=== PATIENT | female | born 1975 | race Caucasian/White ===

== ENCOUNTER 2016-04-28 01:06 | Emergency (ER) | payer SELFPAY ==
[~2016-04-28] VITALS: Ht 157.5 cm; Wt 62.1 kg
[~2016-04-28 01:06] MED LIST: AMOX875T PO; CIPR7.5D EACH EAR; ERYT1OIN6 OD; HYDR-971 PO; IBUP200T77 PO; INSU100V5 IJ; NAPR250T2 PO; OFLO5DRO OD; PRED20TA PO; PROAIR HFA8.5 GM INH; TRAM50TA PO
[2016-04-28] MEDS ORDERED: IPRATRPIUM/ALBUTEROL 0.5/2.5MG 3 ML NEBU. NEB ONE (02:00)
[2016-04-28] MEDS ORDERED: TETRACAINE 0.5% OPHTH SOLUTION 4ML BOTTLE. OD ONE (02:00)
[2016-04-28] MEDS ORDERED: FLUORESCEIN OPHTH TEST STRIP. OS ONE (02:00)
[2016-04-28 02:05] LABS: BASO # 0.2 x10^3/uL (0.0-0.2); BASO % 1 % (0-3); EOS % 3 % (0-3); HEMATOCRIT 39.8 % (36.0-47.0); HEMOGLOBIN 13.5 g/dL (12.0-15.5); LYMPH % 27 % (24-48); MEAN CORPUSCULAR HEMOGLOBIN 32 pg (25-35); MEAN CORPUSCULAR HGB CONC 34 g/dL (31-37); MEAN CORPUSCULAR VOLUME 94 fL (79-100); MONO % 7 % (0-9); NEUT % 61 % (31-73); PLATELET COUNT 409 x10^3/uL (140-400); RED BLOOD COUNT 4.23 x10^6/uL (3.50-5.40); RED CELL DISTRIBUTION WIDTH 14.1 % (11.5-14.5)
--- NOTE | 2016-04-28 02:11 | ED.ADGEN ---
Past Medical History Past Medical History: Diabetes-Type II Additional Past Medical Histor: neuropathy; osteomyolitis Past Surgical History: Other Additional Past Surgical Histo: left ankle Alcohol Use: None Drug Use: None Adult General Chief Complaint Chief Complaint: EYE PROBLEMS HPI HPI Patient is a 41 year old woman, history of asthma, hypertension, tobacco abuse , who presents to the emergency department with complaint of right eye pain 1 month, shortness of breath with cough over the past several days area patient states that she was seen about a month ago for "a scratch in my eye". States that she has mild blurriness in the right eye, and continued pain. Patient is rubbing at the eye with cough in the ED. States that she was sent home with "a silver tube of medication", which she states made the pain worse. She was also sent home with prednisone for her lungs. She states she has not been using the prednisone as it makes her sugars "go high". She states that she does not have testing strips at home, does not have a primary care provider, but she receives her insulin through [employer]. She she has been using insulin but has not been checking her sugars recently. She is her sugars are running in the 200s when she has been able to check. Patient states that she's had runny nose and cough, has been able to smoke over the past several days due to the degree of her coughing, noted to be hypoxic at 89-94% on room air upon arrival to the ED, tachycardic in the low 100s to 1 teens. Patient does not use oxygen at baseline. Denies any chest pain, denies any weakness numbness or tingling, experiences some shortness of breath or cough, no nausea or vomiting, no sick contacts or exposures, recent travel or surgery, history of DVT or PE. Review of Systems Review of Systems Constitutional: Denies fever or chills. [] Eyes: Slightly blurred vision in the right eye, with redness and pain. [] HENT: No sore throat, positive for nasal congestion.. [] Respiratory: Shortness of breath, limiting tobacco use over the past several days, complaining of cough, occasionally productive clear sputum.] Cardiovascular: Denies chest pain or edema. [] GI: Denies abdominal pain, nausea, vomiting, bloody stools or diarrhea. [] : Denies dysuria. [] Musculoskeletal: Denies back pain or joint pain. [] Integument: Denies rash. [] Neurologic: Denies headache, focal weakness or sensory changes. [] Endocrine: Denies polyuria or polydipsia. [] Lymphatic: Denies swollen glands. [] Psychiatric: Denies depression or anxiety. [] Current Medications Current Medications Current Medications Medications (Trade) Dose Ordered Sig/Kavin Start Time Stop Time Status Last Admin Dose Admin Albuterol/ Ipratropium (Duoneb) 3 ml 1X ONCE 04/28/16 02:00 04/28/16 02:01 DC 04/28/16 02:00 3 ML Azithromycin (Zithromax) 500 mg 1X ONCE 04/28/16 04:30 04/28/16 04:42 DC 04/28/16 04:31 500 MG Erythromycin (Romycin) 0.25 inch 1X ONCE 04/28/16 02:45 04/28/16 02:46 DC 04/28/16 03:02 0.25 INCH Fluorescein Sodium (Ful-Lillian) 1 strip 1X ONCE 04/28/16 02:00 04/28/16 02:01 DC 04/28/16 02:24 1 STRIP Methylprednisolone Sodium Succinate (Solu-Medrol 125mg Vial) 125 mg 1X ONCE 04/28/16 02:45 04/28/16 02:46 DC 04/28/16 03:01 125 MG Naproxen (Naprosyn) 250 mg 1X ONCE 04/28/16 02:45 04/28/16 02:46 DC 04/28/16 03:02 250 MG Tetracaine HCl (Tetracaine) 1 drop 1X ONCE 04/28/16 02:00 04/28/16 02:01 DC 04/28/16 02:28 1 DROP Allergies Allergies Allergies Coded Allergies Type Severity Reaction Last Updated Verified No Known Drug Allergies 03/07/13 No Physical Exam Physical Exam Constitutional: Well developed, well nourished, no acute distress, non-toxic appearance. [] HENT: Normocephalic, atraumatic, bilateral external ears normal, oropharynx moist, no oral exudates, nose normal. [] Eyes: PERRLA, EOMI, patient with mild erythema to both eyes, conjunctival injection worse on the right, or motions are intact, patient complains of pain at the lateral aspect of her eye, noted to have some surrounding redness no swelling, patient is rubbing the eye constantly with a cloth.] Neck: Normal range of motion, no tenderness, supple, no stridor. [] Cardiovascular:Heart rate regular rhythm, no murmur, S1, S2, rubs or gallops. [] Lungs & Thorax: Patient with coarse breath sounds bilaterally, significant scattered wheezing, with diminished breath sounds throughout. No chest wall tenderness or crepitus. Abdomen: Bowel sounds normal, soft, no rebound, rigidity, no guarding, no tenderness, no masses, no pulsatile masses. [] Skin: Warm, dry, no erythema, no rash. [] Back: No tenderness, no CVA tenderness. [] Extremities: No tenderness, no cyanosis, no clubbing, ROM intact, no edema. Negative Homans sign. [] Neurologic: Alert and oriented X 3, normal motor function, normal sensory function, no focal deficits noted. [] Psychologic: Affect normal, judgement normal, mood normal. [] Eyes examination: Fluorescein examination reveals large central corneal abrasion which does cross the pupil, at the 6 o'clock position, no foreign bodies or ulcerations identified. Patient with full painless range of motion with tetracaine applied. Current Patient Data Vital Signs Vital Signs Date Time Temp Pulse Resp B/P Pulse Ox O2 Delivery O2 Flow Rate FiO2 04/28/16 04:42 103 119/56 92 Room Air 04/28/16 02:01 2.0 04/28/16 01:27 98.6 20 98.6 Lab Values Laboratory Tests Test 04/28/16 01:57 04/28/16 03:05 White Blood Count 15.0x10^3/uL (4.0-11.0) H Red Blood Count 4.23x10^6/uL (3.50-5.40) Hemoglobin 13.5g/dL (12.0-15.5) Hematocrit 39.8% (36.0-47.0) Mean Corpuscular Volume 94fL (79-100) Mean Corpuscular Hemoglobin 32pg (25-35) Mean Corpuscular Hemoglobin Concent 34g/dL (31-37) Red Cell Distribution Width 14.1% (11.5-14.5) Platelet Count 409x10^3/uL (140-400) H Neutrophils (%) (Auto) 61% (31-73) Lymphocytes (%) (Auto) 27% (24-48) Monocytes (%) (Auto) 7% (0-9) Eosinophils (%) (Auto) 3% (0-3) Basophils (%) (Auto) 1% (0-3) Neutrophils # (Auto) 9.2x10^3uL (1.8-7.7) H Lymphocytes # (Auto) 4.0x10^3/uL (1.0-4.8) Monocytes # (Auto) 1.1x10^3/uL (0.0-1.1) Eosinophils # (Auto) 0.5x10^3/uL (0.0-0.7) Basophils # (Auto) 0.2x10^3/uL (0.0-0.2) Sodium Level 136mmol/L (136-145) Potassium Level 4.3mmol/L (3.5-5.1) Chloride Level 97mmol/L (98-107) L Carbon Dioxide Level 29mmol/L (21-32) Anion Gap 10 (6-14) Blood Urea Nitrogen 24mg/dL (7-20) H Creatinine 1.1mg/dL (0.6-1.0) H Estimated GFR (Cockcroft-Gault) 54.7 BUN/Creatinine Ratio 22 (6-20) H Glucose Level 438mg/dL (70-99) H Calcium Level 9.0mg/dL (8.5-10.1) Total Bilirubin 0.2mg/dL (0.2-1.0) Aspartate Amino Transferase (AST) 24U/L (15-37) Alanine Aminotransferase (ALT) 52U/L (14-59) Alkaline Phosphatase 128U/L (46-116) H Total Protein 7.3g/dL (6.4-8.2) Albumin 3.2g/dL (3.4-5.0) L Albumin/Globulin Ratio 0.8 (1.0-1.7) L Influenza Type A Antigen Negative (NEGATIVE) Influenza Type B Antigen Negative (NEGATIVE) Laboratory Tests 04/28/16 01:57 Laboratory Tests 04/28/16 01:57 EKG EKG EC: Sinus tachycardia, heart rate 105 bpm, upright axis, QTC of 427, OR 118, QRS of 82, no ST elevations or depressions, no evidence of acute ST abnormalities, aside from sinus tachycardia. As interpreted by me. Radiology/Procedures Radiology/Procedures Chest x-ray: Two-view: Normal cardiopulmonary silhouette, no focal traits, no effusions, no soft tissue or bony abnormalities identified. No pneumothorax. As interpreted by me. [] Course & Med Decision Making Course & Med Decision Making Pertinent Labs and Imaging studies reviewed. (See chart for details) Patient with significant wheezing, diminished breath sounds throughout the lung david. Respiratory treatment ordered, along with steroids. Patient noted be tachycardic, hypoxic, was placed on O2 in the ED, oxygen saturations improved from 89% prior to breathing treatment, to mid 90s after treatment, patient remained mildly tachycardic, removed her oxygen, saturation dropped to about 91- 92% at rest, remains mildly tachycardic. Eye examination reveals a large central corneal abrasion, no foreign bodies identified, no ulceration identified , patient appears to have reinjured the eye after the initial event. She is presently rubbing at her eye with a cloth, initially complains of pain with eye motion, however after tetracaine applied, patient has full extraocular motions that are intact without pain. Examination is not consistent with preseptal or septal cellulitis. Based on patient's respiratory difficulties, nursing that she has difficulty filling medications, she previous is not compliant with her prednisone prescription, I did offer admission to the patient, and discussed that admission to the hospital on her to be further evaluated by both the tariff expert potentially, and also to receive better treatment of her pulmonary symptoms. Patient stated that she understood the reasons that I recommended admission to the hospital, the tachycardia, the hypoxia, and the risk to be associated with leaving the hospital that medical advice. She stated she understood this included morbidity and even mortality. She states however that she has 5 children she needs to care for, and therefore must leave the ED. Patient received first dose of azithromycin in the ED, was given prescription for azithromycin 250 mg, this is on the $4 list, to be taken once daily for days , along with a refill of her prednisone prescription which she did not previously fill, prescription for albuterol inhaler, and also another prescription for erythromycin for her eye. This is not optimal treatment which I did emphasize to the patient, although she states that she is feeling better at this time, I am concerned that with her underlying hypoxia upon arrival that she could decompensate or experience, locations with her illness further. Patient again voiced understanding. I discussed with her that I cannot send her home with tetracaine drops, discussed with her again the importance of following up with ophthalmology for additional evaluation, the fact that she should feel free to return to the ED anytime for additional evaluation and admission to the hospital. Patient voiced understanding, did complete AMA paperwork with nurse Denise, exited from the emergency department without issue. Dragon Disclaimer Dragon Disclaimer This electronic medical record was generated, in whole or in part, using a voice recognition dictation system. Departure Impression: Primary Impression: Bronchitis Additional Impressions: Corneal abrasion Hypoxia Disposition: AGAINST MEDICAL ADVICE Condition: STABLE Scripts Erythromycin Base (Erythromycin)3.5 Gm Oint...g.1 Tong KATHY [id number] #3.5 GM Prov:GENEVA ALMODOVAR DO 04/28/16 Albuterol Sulfate (Proair Hfa Inhaler)8.5 Gm Hfa.aer.ad1 Puff INH PRN Q6HRS PRN SHORTNESS OF BREATH #1 INHALER Ref 0 Prov:GENEVA ALMODOVAR DO 04/28/16 Azithromycin (Azithromycin Tablet)250 Mg [id number] Mg PO DAILY ANTI-BIOTIC #4 TAB Ref 0 Prov:GENEVA ALMODOVAR DO 04/28/16 Prednisone 20 Mg Tablet2 Tab PO DAILY #8 TAB Prov:GENEVA ALMODOVAR DO 04/28/16 Problem Qualifiers Additional Impressions: Corneal abrasion Encounter type: initial encounter Laterality: right Qualified Code: S05.01XA - Injury of conjunctiva and corneal abrasion without foreign body, right eye, initial encounter GENEVA ALMODOVAR DO Apr 28, 2016 02:11
[2016-04-28 02:17] LABS: CREATININE 1.1 mg/dL (0.6-1.0); GFR 54.7; POTASSIUM 4.3 mmol/L (3.5-5.1)
[2016-04-28 02:23] LABS: ALBUMIN 3.2 g/dL (3.4-5.0); ALBUMIN/GLOBULIN RATIO 0.8 (1.0-1.7); TOTAL BILIRUBIN 0.2 mg/dL (0.2-1.0); TOTAL PROTEIN 7.3 g/dL (6.4-8.2)
[2016-04-28] MEDS ORDERED: NAPROXEN 250 MG TABLET PO ONE (02:45)
[2016-04-28] MEDS ORDERED: methylPREDNISolone SOD SUCC PF 125 MG/2 ML VIAL. IV ONE (02:45)
[2016-04-28] MEDS ORDERED: ERYTHROMYCIN 0.5% OPHTH OINTMENT 1GM TUBE. OD ONE (02:45)
[2016-04-28 03:33] LABS: OBC FLU VALID
[2016-04-28] MEDS ORDERED: PRED20TA PO (04:19)
[2016-04-28] MEDS ORDERED: ERYT1OIN6 RIGHTEYE (04:19)
[2016-04-28] MEDS ORDERED: AZIT250T6 PO (04:19)
[2016-04-28] MEDS ORDERED: PROAIR HFA8.5 GM INH (04:19)
[2016-04-28] MEDS ORDERED: AZITHROMYCIN 250 MG TABLET PO ONE (04:30)
[2016-04-28 04:42] VITALS: BP 119/56
--- NOTE | 2016-04-28 06:39 | EKG ---
[facility] [address] [place] [address] Test Date: 2016-04-28 Test Time: 02:08:51 Pat Name: RENEE MARQUEZ Department: Room: Gender: F Test Engine Operator: : 1975 Requested By: GENEVA ALMODOVAR Order Number: [id number] Reading MD: Shade Burger Measurements Intervals [place] Rate: 105 P: 40 VT: 118 QRS: 68 QRSD: 82 T: 49 QT: 320 QTc: 427 Interpretive Statements SINUS TACHYCARDIA OTHERWISE NORMAL ECG Electronically Signed On 04-28-2016 14:57:33 MULTI SPINDLE OPERATOR by Shade Burger
--- NOTE | 2016-04-28 07:26 | RAD ---
Indication: Cough and hypoxia. Time of exam 0 to 35 hours. Correlation is made with prior study 03/07/2013. The lungs are hyperinflated. Interstitial changes are noted which may be chronic. No parenchymal consolidation is seen. There is no effusion or pneumothorax. Impression: Stable interstitial changes when compared with exam from 03/07/2013.
== END 2016-04-28 04:52 | disposition left against medical advice (07) ==
LOC: ER 01:06
DX: S05.01XA Injury of conjunctiva and corneal abrasion without foreign body, right eye, initial encounter (principal); J40 Bronchitis, not specified as acute or chronic; R09.02 Hypoxemia; E11.40 Type 2 diabetes mellitus with diabetic neuropathy, unspecified; I10 Essential (primary) hypertension; F17.200 Nicotine dependence, unspecified, uncomplicated; X58.XXXA Exposure to other specified factors, initial encounter; Z79.4 Long term (current) use of insulin; Y93.89 Activity, other specified; Y92.89 Other specified places as the place of occurrence of the external cause; Y99.8 Other external cause status
CPT/HCPCS: 36415; 71020; 80053; 85027; 87804; 93005; 94640; 96374; 99285; J2930; J7620; Q0144

== ENCOUNTER 2016-06-04 16:16 | Emergency (ER) | payer SELFPAY ==
[~2016-06-04] VITALS: Ht 170.2 cm; Wt 59.9 kg
[~2016-06-04 16:16] MED LIST changes: +AZIT250T6 PO; +ERYT1OIN6 RIGHTEYE
[2016-06-04 16:25] VITALS: BP 168/78
[2016-06-04] MEDS ORDERED: IPRATRPIUM/ALBUTEROL 0.5/2.5MG 3 ML NEBU. NEB ONE (16:45)
[2016-06-04] MEDS ORDERED: PROAIR HFA8.5 GM INH (18:15)
[2016-06-04] MEDS ORDERED: BENZ200C39 PO (18:15)
[2016-06-04] MEDS ORDERED: NPH,100V4 SQ (18:15)
--- NOTE | 2016-06-04 18:15 | PHYS DOC ---
Past Medical History Past Medical History: Diabetes-Type II Additional Past Medical Histor: neuropathy; osteomyolitis Past Surgical History: Other Additional Past Surgical Histo: left ankle Smoking: Less than 1pk/day Alcohol Use: Occasionally Drug Use: None Adult General Chief Complaint Chief Complaint: COUGH [facility] HPI Patient is a 41 year old female who presents with productive cough and subjective fever for 5 days. She also reports shortness of breath and nasal congestion. She denies sore throat, ear pain, nausea, vomiting, or diarrhea. She did not get a flu shot this season. The patient is also requesting a refill of her albuterol inhaler and her NPH insulin. She has been using her regular insulin at higher doses to control her blood sugars to account for the lack of NPH insulin over the last few days. She does not have a PCP. Review of Systems Review of Systems Constitutional: Reports subjective fever. Eyes: Denies change in visual acuity, redness, or eye pain. [] HENT: Denies ear pain or sore throat. Reports nasal congestion. Respiratory: Reports productive cough and shortness of breath. Cardiovascular: Denies chest pain, palpitations or edema. [] GI: Denies abdominal pain, nausea, vomiting, bloody stools or diarrhea. [] : Denies dysuria, hematuria or urinary frequency. [] Musculoskeletal: Denies back pain or joint pain. [] Integument: Denies rash or skin lesions. [] Neurologic: Denies headache, focal weakness or sensory changes. [] Endocrine: Denies polyuria or polydipsia. [] Psych: Denies anxiety or depression. [] All systems reviewed and negative unless otherwise stated in the HPI. Current Medications Current Medications Current Medications Medications (Trade) Dose Ordered Sig/Kavin Start Time Stop Time Status Last Admin Dose Admin Albuterol/ Ipratropium (Duoneb) 3 ml 1X ONCE 06/04/16 16:45 06/04/16 16:46 DC 06/04/16 16:44 3 ML Allergies Allergies Allergies Coded Allergies Type Severity Reaction Last Updated Verified No Known Drug Allergies 03/07/13 No Physical Exam Physical Exam Constitutional: Well developed, well nourished, no acute distress, non-toxic appearance. [] HENT: Normocephalic, atraumatic, bilateral external ears normal, oropharynx moist, no oral exudates, nose normal. Bilateral TMs without erythema or bulging. There is no posterior pharyngeal erythema or tonsillar edema. Bilateral nasal turbinates are swollen and erythematous. Eyes: PERRLA, EOMI, conjunctiva normal, no discharge. [] Neck: Normal range of motion, no tenderness, supple, no stridor. [] Cardiovascular: Heart rate regular rhythm, no murmur [] Lungs & Thorax: Bilateral breath sounds clear to auscultation without wheezes, rales, or rhonchi. Skin: Warm, dry, no erythema, no rash. [] Neurologic: Alert and oriented X 3, normal motor function, normal sensory function, no focal deficits noted. [] Psychologic: Affect normal, judgement normal, mood normal. [] Current Patient Data Vital Signs Vital Signs Date Time Temp Pulse Resp B/P Pulse Ox O2 Delivery O2 Flow Rate FiO2 06/04/16 16:46 Room Air 06/04/16 16:25 97.9 114 18 95 97.9 EKG EKG [] Radiology/Procedures Radiology/Procedures PA and lateral chest x-ray reviewed and interpreted by myself with Dr. Lynn. There are no focal infiltrates. Course & Med Decision Making Course & Med Decision Making Pertinent Labs and Imaging studies reviewed. (See chart for details) Patient presents with cough and shortness of breath. She refuses a flu swab, stating that she was seen 2 weeks ago with similar symptoms and tested negative. I informed her that she could be positive today even if she was negative previously. She still refuses. She is given a DuoNeb breathing treatment in the emergency department with reported improved breathing. Chest x- ray does not show any sign of pneumonia. She is discharged home with prescription for albuterol inhaler, Tessalon Perles, and NPH insulin. She refuses to take a prescription for steroids, stating that she is already low on her insulin and does not want her blood sugars to increase due to the steroids. Return precautions were discussed. She verbalizes understanding and agrees with plan. Renu Disclaimer Renu Disclaimer This electronic medical record was generated, in whole or in part, using a voice recognition dictation system. Departure Departure Impression: Primary Impression: Bronchitis Disposition: HOME, SELF-CARE Condition: IMPROVED Referrals: NO PCP (PCP) Patient Instructions: Acute Bronchitis, [id number] Additional Instructions: Your chest x-ray did not show any signs of pneumonia. You appear to have a viral bronchitis. Antibiotics do not help to treat viral infections. Please use the prescribed inhaler as needed for cough or shortness of breath. Do not use more often than directed. Please follow-up with a primary care doctor within the next week for reevaluation. Return to emergency department if you have any new or concerning symptoms. Scripts Nph, Human Insulin Isophane (Novolin N)100 Unit/1 Ml Vial1 Unit SQ BID #1 VIAL Use as directed. Prov:GENEVA CHUNG 06/04/16 Benzonatate 200 Mg Capsule1 Cap PO TID #30 CAP Prov:GENEVA CHUNG 06/04/16 Albuterol Sulfate (Proair Hfa Inhaler)8.5 Gm Hfa.aer.ad1 Puff INH Q4HRS PRN SHORTNESS OF BREATH #1 INHALER Prov:GENEVA CHUNG 06/04/16 GENEVA CHUNG Jun 04, 2016 18:15
--- NOTE | 2016-06-05 10:31 | RAD ---
Examination: 2 views of the chest. History: History of cough for 5 days Comparison: 04/28/2016 Finding The cardiomediastinal silhouette grossly appears unremarkable. Prominent appearing interstitial lung markings identified in the perihilar region grossly appears similar to prior exam. There is no acute infiltrate or visualized pneumothorax identified. Impression : No acute cardiopulmonary findings.
== END 2016-06-04 18:19 | disposition home or self-care (01) ==
LOC: ER 16:16
DX: J40 Bronchitis, not specified as acute or chronic (principal); E11.40 Type 2 diabetes mellitus with diabetic neuropathy, unspecified; E11.69 Type 2 diabetes mellitus with other specified complication; M86.9 Osteomyelitis, unspecified; F17.200 Nicotine dependence, unspecified, uncomplicated
CPT/HCPCS: 71020; 94250; 94640; 99284; J7620

== ENCOUNTER 2016-07-13 20:04 | Emergency (ER) | payer SELFPAY ==
[~2016-07-13] VITALS: Ht 157.5 cm; Wt 59.9 kg
[~2016-07-13 20:04] MED LIST changes: +BENZ200C39 PO; +NPH,100V4 SQ
[2016-07-13 20:20] VITALS: BP 168/78
[2016-07-13] MEDS ORDERED: HYDR-971 PO (20:48)
[2016-07-13] MEDS ORDERED: AMOX875T PO (20:48)
--- NOTE | 2016-07-13 20:48 | PHYS DOC ---
Past Medical History Past Medical History: Diabetes-Type II Additional Past Medical Histor: neuropathy; osteomyolitis Past Surgical History: Other Additional Past Surgical Histo: left ankle Alcohol Use: Occasionally Drug Use: None Adult General Chief Complaint Chief Complaint: Toothache [facility] HPI Patient is a 41 year old female who is an insulin-dependent diabetic presents emergency Department today with right upper dental pain for the past 2-3 days. Patient states that she broke her tooth 2-3 days ago. She has not seen a dentist since that time. She denies being on antibiotics. Patient also has a second complaint of an ongoing right ear infection which she cannot afford the antibiotics or been prescribed for the past. Patient does not have a primary care doctor. She receives her insulin local [facility] organization. She states that she has had problems regulating her blood sugar and it is gone as high as 300 and other time she has bottomed out with it. She states that is not her concern at this time. She is primarily concerned about her dental pain in the ongoing right ear problem. Review of Systems Review of Systems Constitutional: Denies fever or chills [] Eyes: Denies change in visual acuity, redness, or eye pain [] HENT: Denies nasal congestion or sore throat [] Respiratory: Denies cough or shortness of breath [] Cardiovascular: No additional information not addressed in HPI [] GI: Denies abdominal pain, nausea, vomiting, bloody stools or diarrhea [] : Denies dysuria or hematuria [] Musculoskeletal: Denies back pain or joint pain [] Integument: Denies rash or skin lesions [] Neurologic: Denies headache, focal weakness or sensory changes [] Endocrine: Denies polyuria or polydipsia [] Allergies Allergies Allergies Coded Allergies Type Severity Reaction Last Updated Verified No Known Drug Allergies 03/07/13 No Physical Exam Physical Exam Constitutional: Well developed, well nourished, no acute distress, non-toxic appearance. Patient is afebrile HENT: Normocephalic, atraumatic, , oropharynx moist, no oral exudates, nose normal. Patient's external ear is erythematous and swollen. It is not hot to the touch but has a appearance of chronic inflammation. External ear canal is inflamed with drainage. The portions of the tympanic membrane that I am able to observe are normal in appearance. There is no evidence of mastoiditis. There is no trismus. Patient's first and second right maxillary molars are decayed into the dentin. There is no active purulent drainage. There is surrounding gingival inflammation without a fluctuant pocket suggestive of a gingival abscess. Eyes: PERRLA, EOMI, conjunctiva normal, no discharge. [] Neck: Normal range of motion, no tenderness, supple, no stridor. [] Cardiovascular:Heart rate regular rhythm, no murmur [] Lungs & Thorax: Bilateral breath sounds clear to auscultation [] Abdomen: Bowel sounds normal, soft, no tenderness, no masses, no pulsatile masses. [] Skin: Warm, dry, no erythema, no rash. [] Back: No tenderness, no CVA tenderness. [] Extremities: No tenderness, no cyanosis, no clubbing, ROM intact, no edema. [] Neurologic: Alert and oriented X 3, normal motor function, normal sensory function, no focal deficits noted. [] Psychologic: Affect normal, judgement normal, mood normal. [] Current Patient Data Vital Signs Vital Signs Date Time Temp Pulse Resp B/P Pulse Ox O2 Delivery O2 Flow Rate FiO2 07/13/16 20:20 98.9 113 20 96 Room Air 98.9 EKG EKG [] Radiology/Procedures Radiology/Procedures [] Course & Med Decision Making Course & Med Decision Making Pertinent Labs and Imaging studies reviewed. (See chart for details) [] Dragon Disclaimer Dragon Disclaimer This electronic medical record was generated, in whole or in part, using a voice recognition dictation system. Departure Departure Impression: Primary Impression: Otitis externa Additional Impression: Dental caries Disposition: 01 HOME, SELF-CARE Condition: GOOD Referrals: NO PCP (PCP) Patient Instructions: Dental Caries-Brief, Otitis Externa, [id number] Additional Instructions: 1. Take the medication as prescribed. 2. Use the dental resource the for assistance in finding a dental clinic or other clinic to address your dental concerns. 3. Review the discharge instructions provided for self-care and reasons to return the emergency department. Scripts Hydrocodone/Apap 5-325 ([place] 5-325 Tablet)1 Each Tablet1 Tab PO PRN Q6HRS PRN PAIN #15 TAB Ref 0 Prov:DANIEL BRADLEY 07/13/16 Amoxicillin 875 Mg Tablet1 Tab PO BID #20 TAB Prov:DANIEL BRADLEY 07/13/16 Problem Qualifiers DANIEL BRADLEY Jul 13, 2016 20:48
== END 2016-07-13 21:05 | disposition home or self-care (01) ==
LOC: ER 20:04
DX: K02.9 Dental caries, unspecified (principal); H60.91 Unspecified otitis externa, right ear; E11.40 Type 2 diabetes mellitus with diabetic neuropathy, unspecified; E11.69 Type 2 diabetes mellitus with other specified complication; M86.9 Osteomyelitis, unspecified
CPT/HCPCS: 99283

== ENCOUNTER 2016-08-09 21:10 | Emergency (ER) | payer SELFPAY ==
[~2016-08-09] VITALS: Ht 157.5 cm; Wt 59.9 kg
[2016-08-09 21:41] VITALS: BP 148/74
--- NOTE | 2016-08-09 21:57 | PHYS DOC ---
Past Medical History Past Medical History: Diabetes-Type I Additional Past Medical Histor: neuropathy; osteomyolitis Past Surgical History: Other Additional Past Surgical Histo: left ankle Alcohol Use: Occasionally Drug Use: None Adult General Chief Complaint Chief Complaint: SORE THROAT HPI HPI Patient is a 41 year old female presents emergency department stating that she' s been having a sore throat for the last 3-4 days. Patient states when she woke up this morning to get out of bed that both of her legs in her thighs hurt. She states that she was week and had increased pain. Patient denies any nausea vomiting. She does state she's had some lightheadedness dizziness she does state she's had a productive cough patient states that she has felt warm she has not taken her temperature. Patient states her glucoses have been running high. Review of Systems Review of Systems Constitutional: Denies fever or chills [] Eyes: Denies change in visual acuity, redness, or eye pain [] HENT: Denies nasal congestion or sore throat [] Respiratory: Denies cough or shortness of breath [] Cardiovascular: No additional information not addressed in HPI [] GI: Denies abdominal pain, nausea, vomiting, bloody stools or diarrhea [] : Denies dysuria or hematuria [] Musculoskeletal: Denies back pain or joint pain [] Integument: Denies rash or skin lesions [] Neurologic: Denies headache, focal weakness or sensory changes [] Endocrine: Denies polyuria or polydipsia [] Current Medications Current Medications Current Medications Medications (Trade) Dose Ordered Sig/[facility] Start Time Stop Time Status Last Admin Dose Admin Insulin Human Regular (Novolin R Vial) 10 unit 1X ONCE 08/09/16 23:00 08/09/16 23:01 Sodium Chloride 1,000 ml @ 1,000 mls/hr 1X ONCE 08/09/16 23:00 08/09/16 23:59 Allergies Allergies Allergies Coded Allergies Type Severity Reaction Last Updated Verified No Known Drug Allergies 03/07/13 No Physical Exam Physical Exam Constitutional: Well developed, well nourished, no acute distress, non-toxic appearance. [] HENT: Normocephalic, atraumatic, bilateral external ears normal, oropharynx moist, no oral exudates, nose normal. Bilateral tympanic membranes appear to be normal. Throat with erythematous and redness noted no exudate noted. Patient was noted to have white spots on her tongue and underneath the time. Patient has bilateral anterior cervical adenopathy. Eyes: PERRLA, EOMI, conjunctiva normal, no discharge. [] Neck: Normal range of motion, no tenderness, supple, no stridor. [] Cardiovascular:Heart rate regular rhythm, no murmur [] Lungs & Thorax: Bilateral breath sounds clear to auscultation [] Skin: Warm, dry, no erythema, no rash. [] Back: No tenderness Extremities: No tenderness, no cyanosis, no clubbing, ROM intact, no edema. [] Neurologic: Alert and oriented X 3, normal motor function, normal sensory function, no focal deficits noted. [] Psychologic: Affect normal, judgement normal, mood normal. [] Current Patient Data Vital Signs Vital Signs Date Time Temp Pulse Resp B/P (MAP) Pulse Ox O2 Delivery O2 Flow Rate FiO2 08/09/16 21:41 98.6 102 18 96 Room Air 98.6 Lab Values Laboratory Tests Test 08/09/16 21:15 08/09/16 22:00 White Blood Count 11.4 x10^3/uL (4.0-11.0) H Red Blood Count 4.34 x10^6/uL (3.50-5.40) Hemoglobin 13.8 g/dL (12.0-15.5) Hematocrit 41.0 % (36.0-47.0) Mean Corpuscular Volume 94 fL (79-100) Mean Corpuscular Hemoglobin 32 pg (25-35) Mean Corpuscular Hemoglobin Concent 34 g/dL (31-37) Red Cell Distribution Width 14.0 % (11.5-14.5) Platelet Count 418 x10^3/uL (140-400) H Neutrophils (%) (Auto) 56 % (31-73) Lymphocytes (%) (Auto) 36 % (24-48) Monocytes (%) (Auto) 4 % (0-9) Eosinophils (%) (Auto) 2 % (0-3) Basophils (%) (Auto) 1 % (0-3) Neutrophils # (Auto) 6.4 x10^3uL (1.8-7.7) Lymphocytes # (Auto) 4.1 x10^3/uL (1.0-4.8) Monocytes # (Auto) 0.5 x10^3/uL (0.0-1.1) Eosinophils # (Auto) 0.3 x10^3/uL (0.0-0.7) Basophils # (Auto) 0.1 x10^3/uL (0.0-0.2) Sodium Level 126 mmol/L (136-145) L Potassium Level 4.0 mmol/L (3.5-5.1) Chloride Level 91 mmol/L (98-107) L Carbon Dioxide Level 21 mmol/L (21-32) Anion Gap 14 (6-14) Blood Urea Nitrogen 17 mg/dL (7-20) Creatinine 1.5 mg/dL (0.6-1.0) H Estimated GFR (Cockcroft-Gault) 38.3 BUN/Creatinine Ratio 11 (6-20) Glucose Level 754 mg/dL (70-99) *H Calcium Level 9.0 mg/dL (8.5-10.1) Total Bilirubin 0.2 mg/dL (0.2-1.0) Aspartate Amino Transferase (AST) 12 U/L (15-37) L Alanine Aminotransferase (ALT) 16 U/L (14-59) Alkaline Phosphatase 125 U/L (46-116) H Total Protein 7.4 g/dL (6.4-8.2) Albumin 3.3 g/dL (3.4-5.0) L Albumin/Globulin Ratio 0.8 (1.0-1.7) L Urine Collection Type Unknown Urine Color Yellow Urine Clarity Clear Urine pH 6.0 Urine Specific [place] >=1.030 Urine Protein Negative mg/dL (NEG-TRACE) Urine Glucose (UA) >=1000 mg/dL (NEG) Urine Ketones (Stick) Negative mg/dL (NEG) Urine Blood Negative (NEG) Urine Nitrite Negative (NEG) Urine Bilirubin Negative (NEG) Urine Urobilinogen Dipstick 0.2 mg/dL (0.2 mg/dL) Urine Leukocyte Esterase Small (NEG) Urine RBC 0 /HPF (0-2) Urine WBC 5-10 /HPF (0-4) Urine Squamous Epithelial Cells Mod /LPF Urine Bacteria 0 /HPF (0-FEW) Urine Yeast Present /HPF Urine Test Negative (NEG) Laboratory Tests 08/09/16 21:15 Laboratory Tests 08/09/16 21:15 EKG EKG EKG completed with a heart rate of 94 sinus rhythm noted no ectopy noted per Dr. Escalante. [] Radiology/Procedures Radiology/Procedures [] Course & Med Decision Making Course & Med Decision Making Pertinent Labs and Imaging studies reviewed. (See chart for details) From the patient's glucose was in the 700s. Sodium appears to be in the 120s. Spoke with patient in regards to receiving IV fluids and insulin here in the emergency department also The patient that we are still waiting on the chest x-ray. Spoke with patient regards to being admitted into the hospital due to sodium level is being wound and glucose levels being high. Patient states that she refuses to be admitted into the hospital. She then states that she refuses to have a chest x-ray and refuses to have her insulin provided for her here. She states that she can take care of this at home. Explained to her the risks of going home as to diabetic ketoacidosis with her glucoses being elevated. Also spoke with patient's in regards to glucoses intellectually to being out of balance, also cause her to have a cardiac arrest at home and possibly dying. Patient states she understands the risks and would prefer to go home. Patient was provided this information with her young child stating there. Patient started disrobing and removing her cardiac monitors. Patient will be signing out AGAINST MEDICAL ADVICE. [] Dragon Disclaimer Dragon Disclaimer This electronic medical record was generated, in whole or in part, using a voice recognition dictation system. Departure Departure Impression: Primary Impression: Left against medical advice Additional Impressions: Hyperglycemia Hyponatremia Disposition: 07 AGAINST MEDICAL ADVICE Condition: STABLE Referrals: NO PCP (PCP) Problem Qualifiers POLO ARREGUIN PREASSEM[employer]ER AND INSPECTOR August 09, 2016 21:57
[2016-08-09 22:24] LABS: BASO # 0.1 x10^3/uL (0.0-0.2); BASO % 1 % (0-3); EOS % 2 % (0-3); HEMOGLOBIN 13.8 g/dL (12.0-15.5); LYMPH # 4.1 x10^3/uL (1.0-4.8); LYMPH % 36 % (24-48); MEAN CORPUSCULAR HEMOGLOBIN 32 pg (25-35); MEAN CORPUSCULAR HGB CONC 34 g/dL (31-37); MEAN CORPUSCULAR VOLUME 94 fL (79-100); MONO % 4 % (0-9); NEUT % 56 % (31-73); PLATELET COUNT 418 x10^3/uL (140-400); RED BLOOD COUNT 4.34 x10^6/uL (3.50-5.40); WHITE BLOOD COUNT 11.4 x10^3/uL (4.0-11.0)
[2016-08-09 22:32] LABS: BILIRUBIN,URINE NEGATIVE (NEG); GLUCOSE,URINE >=1000 mg/dL (NEG); NITRITE,URINE NEGATIVE (NEG); PROTEIN,URINE NEGATIVE (NEG-TRACE); UROBILINOGEN,URINE 0.2 mg/dL (0.2 mg/dL)
[2016-08-09 22:37] LABS: BACTERIA,URINE 0 /HPF (0-FEW); RBC,URINE 0 /HPF (0-2); SQUAMOUS EPITHELIAL CELL,UR MOD /LPF; YEAST,URINE PRESENT /HPF
[2016-08-09 22:38] LABS: CREATININE 1.5 mg/dL (0.6-1.0); GFR 38.3
[2016-08-09 22:40] LABS: ALBUMIN 3.3 g/dL (3.4-5.0); ALBUMIN/GLOBULIN RATIO 0.8 (1.0-1.7); TOTAL BILIRUBIN 0.2 mg/dL (0.2-1.0); TOTAL PROTEIN 7.4 g/dL (6.4-8.2)
[2016-08-09 22:53] LABS: NEG OBC UR NEG; POS OBC UR POS
[2016-08-09] MEDS ORDERED: IV NORMAL SALINE 1000ML BAG 1,000 ML IV ONE (23:00)
[2016-08-09] MEDS ORDERED: INSULIN REGULAR 100 UNIT/ML 10ML VIAL. SQ ONE (23:00)
--- NOTE | 2016-08-10 06:50 | EKG ---
[facility] [address] [place] [address] Test Date: 2016-08-09 Test Time: 22:09:20 Pat Name: RENEE MARQUEZ Department: Room: Gender: F [employer]: : 1975 Requested By: POLO ARREGUIN Order Number: [id number] Reading MD: Boaz Alexandre Measurements Intervals Aragon Rate: 94 P: 62 PA: 134 QRS: 63 QRSD: 92 T: 43 QT: 344 QTc: 430 Interpretive Statements SINUS RHYTHM Electronically Signed On 08-15-2016 9:13:35 CDT by Boaz Alexandre
[2016-08-10 10:00] LABS: NEGATIVE OBC STREP NEG; POSITIVE OBC STREP POS
== END 2016-08-09 23:02 | disposition left against medical advice (07) ==
LOC: ER 21:10
DX: E10.65 Type 1 diabetes mellitus with hyperglycemia (principal); E87.1 Hypo-osmolality and hyponatremia; E10.40 Type 1 diabetes mellitus with diabetic neuropathy, unspecified; E10.69 Type 1 diabetes mellitus with other specified complication; M86.9 Osteomyelitis, unspecified; J02.9 Acute pharyngitis, unspecified
CPT/HCPCS: 36415; 80053; 81001; 81025; 85027; 87070; 87880; 93005; 99285-25

== ENCOUNTER 2016-10-18 09:56 | Emergency (ER) | payer SELFPAY ==
[~2016-10-18] VITALS: Ht 157.5 cm; Wt 56.7 kg
[~2016-10-18 09:56] MED LIST changes: -BENZ200C39 PO; +BENZ200C47 PO; -NPH,100V4 SQ; +NPH,100V5 SQ
[2016-10-18 10:09] VITALS: BP 139/81
--- NOTE | 2016-10-18 10:30 | PHYS DOC ---
Past Medical History Past Medical History: Asthma, Diabetes-Type I Additional Past Medical Histor: neuropathy; osteomyolitis Past Surgical History: Other Additional Past Surgical Histo: osteomyelitis right ankle/foot Alcohol Use: None Drug Use: None Adult General Chief Complaint Chief Complaint: MULTIPLE COMPLAINTS [facility] Patient is a 41 year old female who presents with right-sided facial pain and toothache. She states it all started Monday at the pool and felt somewhat nauseated but denies any vomiting, denies any fevers chills. She states she and appointment with the dentist with the dentist at the end of the month at [facility] and she's been using Aleve, Naprosyn, Tylenol but this is not controlling her pain. She denies any changes in her voice, trismus, troubles swallowing or breathing. Review of Systems Review of Systems Constitutional: Denies fever or chills [] Eyes: Denies change in visual acuity, redness, or eye pain [] HENT: Denies nasal congestion or sore throat [] Respiratory: Denies cough or shortness of breath [] Cardiovascular: No additional information not addressed in HPI [] GI: Denies abdominal pain, nausea, vomiting, bloody stools or diarrhea [] : Denies dysuria or hematuria [] Musculoskeletal: Denies back pain or joint pain [] Integument: Denies rash or skin lesions [] Neurologic: Denies headache, focal weakness or sensory changes [] Endocrine: Denies polyuria or polydipsia [] Allergies Allergies Allergies Coded Allergies Type Severity Reaction Last Updated Verified No Known Drug Allergies 03/07/13 No Physical Exam Physical Exam Constitutional: Well developed, well nourished, no acute distress, non-toxic appearance. [] HENT: Normocephalic, atraumatic, bilateral external ears normal, oropharynx moist, no oral exudates, nose normal. Worse dental caries with missing and teeth in various stages of decay especially in the right upper jaw, no Jerry angina or trismus noted Eyes: PERRLA, EOMI, conjunctiva normal, no discharge. [] Neck: Normal range of motion, no tenderness, supple, no stridor. [] Cardiovascular:Heart rate regular rhythm, no murmur [] Lungs & Thorax: Bilateral breath sounds clear to auscultation [] Abdomen: Bowel sounds normal, soft, no tenderness, no masses, no pulsatile masses. [] Skin: Warm, dry, no erythema, no rash. [] Back: No tenderness, no CVA tenderness. [] Extremities: No tenderness, no cyanosis, no clubbing, ROM intact, no edema. [] Neurologic: Alert and oriented X 3, normal motor function, normal sensory function, no focal deficits noted. [] Psychologic: Affect normal, judgement normal, mood normal. [] Current Patient Data Vital Signs Vital Signs Date Time Temp Pulse Resp B/P (MAP) Pulse Ox O2 Delivery O2 Flow Rate FiO2 10/18/16 10:09 98.5 95 18 139/81 (100) 98 Room Air 98.5 EKG EKG [] Radiology/Procedures Radiology/Procedures [] Impressions: Dental caries Course & Med Decision Making Course & Med Decision Making Pertinent Labs and Imaging studies reviewed. (See chart for details) She doesn't have any concerning signs on physical exam this no trismus or other concerns. We'll discharge with 15 tablets of [place] one or 2 tablets every 6 hours prior pain in addition to 500 mg Pen-Vee K one every 6 hours for 10 days. She is to follow-up with her dentist. Return precautions given for worsening pain, swelling or other concerns. Dragon Disclaimer Dragon Disclaimer This electronic medical record was generated, in whole or in part, using a voice recognition dictation system. Departure Departure Impression: Primary Impression: Infected dental carries Disposition: 01 HOME, SELF-CARE Condition: STABLE Referrals: NO PCP (PCP) Patient Instructions: Dental Caries Additional Instructions: The pain or having her face is likely secondary to your infected tooth. You will need take antibiotics for the next 10 days. You can take pain meds as needed. Please don't drive while taking these pain meds as it can impair judgment and make you sleepy. Please don't drink alcohol while taking these. He will need follow up her dentist as scheduled. Return the ER if you have worsening pain, fevers, uncontrolled nausea vomiting or other concerns. Scripts Hydrocodone/Apap 5-325 (NORCO 5-325 TABLET) 1 Each Tablet 1 TAB PO PRN Q6HRS Y for PAIN, #15 TAB 0 Refills Prov: HONG YIN MD 10/18/16 Penicillin V Potassium (PENICILLIN V POTASSIUM) 500 Mg Tablet 1 TAB PO QID, #40 TAB Prov: HONG YIN MD 10/18/16 HONG YIN MD Oct 18, 2016 10:30
[2016-10-18] MEDS ORDERED: HYDR-971 PO (11:06)
[2016-10-18] MEDS ORDERED: PENI500T PO (11:06)
== END 2016-10-18 11:18 | disposition home or self-care (01) ==
LOC: ER 09:56
DX: K02.9 Dental caries, unspecified (principal); R51 Headache; E10.40 Type 1 diabetes mellitus with diabetic neuropathy, unspecified; E10.69 Type 1 diabetes mellitus with other specified complication; M86.9 Osteomyelitis, unspecified; J45.909 Unspecified asthma, uncomplicated
CPT/HCPCS: 99283

== ENCOUNTER 2017-01-08 07:58 | Emergency (ER) | payer SELFPAY ==
[~2017-01-08] VITALS: Ht 160 cm; Wt 59.0 kg
[~2017-01-08 07:58] MED LIST changes: -NAPR250T2 PO; +NAPR250T6 PO; +PENI500T PO
[2017-01-08 08:00] VITALS: BP 148/67
[2017-01-08] MEDS ORDERED: CIPROFLOXACIN 0.3% OPHTH SOLUTION 5ML BOTTLE. AD STA (08:08)
--- NOTE | 2017-01-08 08:24 | PHYS DOC ---
Past Medical History Past Medical History: Asthma, Diabetes-Type I Additional Past Medical Histor: neuropathy; osteomyolitis Past Surgical History: Other Additional Past Surgical Histo: osteomyelitis right ankle/foot Alcohol Use: None Drug Use: None Adult General Chief Complaint Chief Complaint: BLOOD SUGAR PROBLEM [facility] HPI Patient is a 41 year old female with history of diabetes type 1, asthma, who presents today with hypoglycemia. Patient's brother works for EMS who state patient's blood sugar was 18 is morning. Patient was given D50. Blood sugar came up to 120. Mother stated patient is not behaving like herself. Blood sugar to the ED is 100. Mother also stated patient has had right otitis externa 4 weeks. Patient states she is to have some eardrops for longer has them. Patient denies any chest pain or shortness of breath. She was refusing care arrival to the ED today after the brother was present and talked to patient into accepting care. Nursing staff state patient has head lice. Review of Systems Review of Systems Constitutional: Denies fever or chills [] Eyes: Denies change in visual acuity, redness, or eye pain [] HENT:Right otitis externa. Denies nasal congestion or sore throat [] Respiratory: Denies cough or shortness of breath [] Cardiovascular: No additional information not addressed in HPI [] GI: Denies abdominal pain, nausea, vomiting, bloody stools or diarrhea [] : Denies dysuria or hematuria [] Musculoskeletal: Denies back pain or joint pain [] Integument: Denies rash or skin lesions [] Neurologic: Altered mental status Endocrine: Hypoglycemia Current Medications Current Medications Current Medications Medications (Trade) Dose Ordered Sig/Kavin Start Time Stop Time Status Last Admin Dose Admin Ciprofloxacin (Ciloxan Ophth) 1 drop 1X STAT 01/08/17 08:08 01/08/17 08:17 DC Ciprofloxacin/ Dextrose 200 ml @ 200 mls/hr 1X ONCE 01/08/17 08:30 01/08/17 09:13 DC 01/08/17 08:34 200 MLS/HR Allergies Allergies Allergies Coded Allergies Type Severity Reaction Last Updated Verified No Known Drug Allergies 03/07/13 No Physical Exam Physical Exam Constitutional: Well developed, well nourished, no acute distress, non-toxic appearance. [] HENT: Normocephalic, atraumatic, bilateral, oropharynx moist, no oral exudates, nose normal.Right external ear has mild erythema, is swollen, ear canal is narrowed with yellow exudate, pain full tragus. Eyes: PERRLA, EOMI, conjunctiva normal, no discharge. [] Neck: Normal range of motion, no tenderness, supple, no stridor. [] Cardiovascular:Heart rate regular rhythm, no murmur [] Lungs & Thorax: Bilateral breath sounds clear to auscultation [] Abdomen: Bowel sounds normal, soft, no tenderness, no masses, no pulsatile masses. [] Skin: Warm, dry, no erythema, no rash. [] Back: No tenderness, no CVA tenderness. [] Extremities: No tenderness, no cyanosis, no clubbing, ROM intact, no edema. [] Neurologic: Alert and oriented X 3, normal motor function, normal sensory function, no focal deficits noted. Cranial nerves II-XII intact Psychologic: Affect normal, judgement normal, mood normal. [] Current Patient Data Vital Signs Vital Signs Date Time Temp Pulse Resp B/P (MAP) Pulse Ox O2 Delivery O2 Flow Rate FiO2 01/08/17 08:00 97.7 78 18 148/67 (94) 97 Room Air 97.7 Lab Values Laboratory Tests Test 01/08/17 08:02 Glucose (Fingerstick) 100 mg/dL (70-99) H EKG EKG [] Radiology/Procedures Radiology/Procedures [] Course & Med Decision Making Course & Med Decision Making Pertinent Labs and Imaging studies reviewed. (See chart for details) This is a 41-year-old female with hx of DM I presenting from home with complaint of hypoglycemic. Blood sugar was 18 when EMS picked patient from her house. They did give patient D50 blood sugar came up to 120. On arrival to the ED patient is alert and oriented 3 and is requesting to be discharged. She is refusing any workup. Her blood sugar was 100 on arrival. She had breakfast in the ED. She is acting normal right now walking around. She has continued to refuse care and is capable of making her own decision right now. Dr. Martinez saw the patient on arrival to the ED and agreed patient can sign out AMA. Patient left AMA Renu Disclaimer Renu Disclaimer This electronic medical record was generated, in whole or in part, using a voice recognition dictation system. Departure Departure Impression: Primary Impression: Otitis externa Additional Impressions: Hypoglycemia Head lice Disposition: 07 AGAINST MEDICAL ADVICE Condition: STABLE Referrals: NO PCP (PCP) Problem Qualifiers Primary Impression: Otitis externa Otitis externa type: other infective Chronicity: chronic Laterality: right Qualified Codes: H60.391 - Other infective otitis externa, right ear KYLIEXAVI APRN Jan 08, 2017 08:24
[2017-01-08] MEDS ORDERED: CIPROFLOXACIN 400MG PREMIX 200 ML IV ONE (08:30)
[2017-01-08] MEDS ORDERED: CIPROFLOXACIN 400MG PREMIX 200 ML IV SCH (09:00)
== END 2017-01-08 09:00 | disposition left against medical advice (07) ==
LOC: ER 07:58
DX: E10.649 Type 1 diabetes mellitus with hypoglycemia without coma (principal); H60.391 Other infective otitis externa, right ear; B85.0 Pediculosis due to Pediculus humanus capitis; J45.909 Unspecified asthma, uncomplicated; E10.40 Type 1 diabetes mellitus with diabetic neuropathy, unspecified; E10.69 Type 1 diabetes mellitus with other specified complication; M86.9 Osteomyelitis, unspecified
CPT/HCPCS: 82962; 96365; 99284; J0744; 99285-25

== ENCOUNTER 2017-03-25 11:22 | Emergency (ER) | payer SELFPAY ==
[~2017-03-25] VITALS: Ht 157.5 cm; Wt 54.4 kg
[2017-03-25 11:25] VITALS: BP 149/77
[2017-03-25] MEDS ORDERED: IPRATRPIUM/ALBUTEROL 0.5/2.5MG 3 ML NEBU. NEB ONE (12:00)
[2017-03-25] MEDS ORDERED: predniSONE 10 MG TABLET PO ONE (12:00)
[2017-03-25] MEDS ORDERED: PROAIR HFA8.5 GM INH (12:39)
[2017-03-25] MEDS ORDERED: AMOX500C PO (12:39)
[2017-03-25] MEDS ORDERED: BENZ100C PO (12:39)
--- NOTE | 2017-03-28 16:40 | PHYS DOC ---
Past Medical History Past Medical History: Asthma, Diabetes-Type I Additional Past Medical Histor: neuropathy; osteomyolitis, dental carries Past Surgical History: Other Additional Past Surgical Histo: osteomyelitis right ankle/foot Alcohol Use: None Drug Use: None Adult General Chief Complaint Chief Complaint: DENTAL PROBLEM HPI HPI Patient is a 42 year old female who presents with dental pain and bronchitis symptoms. The patient has an appointment with [facility] but states that her pain is worsening and she has swelling to her bad tooth. She also has a strong cough and wheezing. She does smoke. Review of Systems Review of Systems Constitutional: Denies fever or chills [] Eyes: Denies change in visual acuity, redness, or eye pain [] HENT: See history of present illness Respiratory: See history of present illness Cardiovascular: No additional information not addressed in HPI [] GI: Denies abdominal pain, nausea, vomiting, bloody stools or diarrhea [] Neurologic: Denies headache, focal weakness or sensory changes [] Endocrine: Denies polyuria or polydipsia [] All other systems were reviewed and found to be within normal limits, except as documented in this note. Current Medications Current Medications Current Medications Medications (Trade) Dose Ordered Sig/Kavin Start Time Stop Time Status Last Admin Dose Admin Albuterol/ Ipratropium (Duoneb) 3 ml 1X ONCE 03/25/17 12:00 03/25/17 12:01 DC 03/25/17 12:05 3 ML Prednisone (Prednisone) 50 mg 1X ONCE 03/25/17 12:00 03/25/17 12:01 DC 03/25/17 12:36 50 MG Allergies Allergies Allergies Coded Allergies Type Severity Reaction Last Updated Verified No Known Drug Allergies 03/07/13 No Physical Exam Physical Exam Constitutional: Well developed, well nourished, no acute distress, non-toxic appearance. [] HENT: Normocephalic, atraumatic, bilateral external ears normal, oropharynx moist, no oral exudates, patient has significant decay and a fractured tooth to her left upper jaw that appears to be #5 Eyes: PERRLA, EOMI, conjunctiva normal, no discharge. [] Neck: Normal range of motion, no tenderness, supple, no stridor. [] Cardiovascular:Heart rate regular rhythm, no murmur [] Lungs & Thorax: Bilateral breath are decreased with inspiratory and expiratory wheezes noted Neurologic: Alert and oriented X 3, normal motor function, normal sensory function, no focal deficits noted. [] Psychologic: Affect normal, judgement normal, mood normal. [] Current Patient Data Vital Signs Vital Signs Date Time Temp Pulse Resp B/P (MAP) Pulse Ox O2 Delivery O2 Flow Rate FiO2 03/25/17 12:09 Room Air 03/25/17 11:25 97.8 104 16 97 97.8 EKG EKG [] Radiology/Procedures Radiology/Procedures [] Course & Med Decision Making Course & Med Decision Making Pertinent Labs and Imaging studies reviewed. (See chart for details) []1. Infected dental caries 2. Bronchitis Dragon Disclaimer Dragon Disclaimer This electronic medical record was generated, in whole or in part, using a voice recognition dictation system. Departure Departure Impression: Primary Impression: Infected dental carries Additional Impression: Bronchitis Disposition: 01 HOME, SELF-CARE Condition: STABLE Referrals: NO PCP (PCP) Patient Instructions: Dental Caries, Bronchitis Additional Instructions: The patient is strongly encouraged to keep her follow-up at [facility] for dental care. The patient's to quit smoking as this is only going to exacerbate her lung condition. She states take the antibiotic as directed until it is finished and use her inhaler as directed as well. She may return to the emergency department if worsening. Scripts Albuterol Sulfate (PROAIR HFA INHALER) 8.5 Gm Hfa.aer.ad 1 PUFF INH PRN Q6HRS Y for SHORTNESS OF BREATH, #1 INHALER 0 Refills Prov: CUONG LORENZANA APRN 03/25/17 Benzonatate (TESSALON PERLE) 100 Mg Capsule 1 CAP PO TID, #21 CAP Prov: CUONG LORENZANA APRN 03/25/17 Amoxicillin (AMOXICILLIN) 500 Mg Capsule 2 CAP PO BID, #40 CAP Prov: CUONG LORENZANA APRN 03/25/17 Problem Qualifiers CUONG LORENZANA APRN Mar 28, 2017 16:40
== END 2017-03-25 12:46 | disposition home or self-care (01) ==
LOC: ER 11:22
DX: K04.7 Periapical abscess without sinus (principal); K02.9 Dental caries, unspecified; J40 Bronchitis, not specified as acute or chronic; J45.909 Unspecified asthma, uncomplicated; E10.40 Type 1 diabetes mellitus with diabetic neuropathy, unspecified; E10.69 Type 1 diabetes mellitus with other specified complication; M86.9 Osteomyelitis, unspecified; F17.200 Nicotine dependence, unspecified, uncomplicated
CPT/HCPCS: 94640; 99283; J7512; J7620

== ENCOUNTER 2017-04-03 15:26 | Emergency (ER) | payer SELFPAY ==
[2017-04-03 16:14] LABS: URINE HCG POC HCG NEGATIVE (Negative)
== END 2017-04-03 16:46 | disposition home or self-care (01) ==
LOC: ER 15:26
DX: J32.0 Chronic maxillary sinusitis (principal); J45.909 Unspecified asthma, uncomplicated; E10.69 Type 1 diabetes mellitus with other specified complication; M86.9 Osteomyelitis, unspecified; E10.40 Type 1 diabetes mellitus with diabetic neuropathy, unspecified; F17.200 Nicotine dependence, unspecified, uncomplicated
CPT/HCPCS: 71046; 81025; 99284-25

== ENCOUNTER 2017-04-21 13:23 | Emergency (ER) | payer SELFPAY | END 2017-04-21 14:17 | disposition home or self-care (01) | LOC: ER 13:23 | DX: J40 Bronchitis, not specified as acute or chronic (principal); J45.909 Unspecified asthma, uncomplicated; E10.9 Type 1 diabetes mellitus without complications; E10.40 Type 1 diabetes mellitus with diabetic neuropathy, unspecified; E10.69 Type 1 diabetes mellitus with other specified complication; M86.9 Osteomyelitis, unspecified | CPT/HCPCS: 99283 ==

== ENCOUNTER 2017-09-24 22:20 | Emergency (ER) | payer SELFPAY ==
[2017-09-24 23:06] LABS: BILIRUBIN,URINE NEGATIVE (NEG); CLARITY,URINE CLOUDY; COLOR,URINE YELLOW; GLUCOSE,URINE >=1000 mg/dL (NEG); NITRITE,URINE NEGATIVE (NEG); PROTEIN,URINE NEGATIVE (NEG-TRACE); UROBILINOGEN,URINE 0.2 mg/dL (0.2 mg/dL)
[2017-09-24 23:08] LABS: URINE HCG POC HCG POSITIVE (Negative)
[2017-09-24 23:12] LABS: BACTERIA,URINE FEW /HPF (0-FEW); SQUAMOUS EPITHELIAL CELL,UR FEW /LPF
[2017-09-24 23:13] LABS: AMORPHOUS SEDIMENT,UR PRESENT /HPF
[2017-09-24 23:14] LABS: ADD MAN DIFF? NO
[2017-09-24] MEDS: IV NORMAL SALINE 1000ML BAG 1,000 ML IV (23:15)
[2017-09-24 23:16] LABS: BASO # 0.1 x10^3/uL (0.0-0.2); BASO % 1 % (0-3); EOS # 0.5 x10^3/uL (0.0-0.7); EOS % 4 % (0-3); HEMATOCRIT 24.7 % (36.0-47.0); HEMOGLOBIN 8.3 g/dL (12.0-15.5); LYMPH # 3.9 x10^3/uL (1.0-4.8); LYMPH % 28 % (24-48); MEAN CORPUSCULAR HEMOGLOBIN 31 pg (25-35); MEAN CORPUSCULAR HGB CONC 34 g/dL (31-37); MEAN CORPUSCULAR VOLUME 93 fL (79-100); MONO # 0.7 x10^3/uL (0.0-1.1); MONO % 5 % (0-9); NEUT # 8.8 x10^3uL (1.8-7.7); NEUT % 63 % (31-73); PLATELET COUNT 419 x10^3/uL (140-400); RED BLOOD COUNT 2.65 x10^6/uL (3.50-5.40); RED CELL DISTRIBUTION WIDTH 14.3 % (11.5-14.5)
[2017-09-24] MEDS: HYDROcodone/APAP 5/325MG 1 TAB TABLET PO (23:32)
[2017-09-27 03:21] LABS: CHLAMYDIA PROBE Negative (Negative); GC PROBE Negative (Negative)
== END 2017-09-25 00:15 | disposition home or self-care (01) ==
LOC: ER 22:20
DX: O03.80 Unspecified complication following complete or unspecified spontaneous abortion (principal); J45.909 Unspecified asthma, uncomplicated; E10.40 Type 1 diabetes mellitus with diabetic neuropathy, unspecified; E10.69 Type 1 diabetes mellitus with other specified complication; M86.9 Osteomyelitis, unspecified
CPT/HCPCS: 36415; 76817; 81001; 81025; 84702; 85025; 87491; 87591; 99285-25; J7030; Q0111

== ENCOUNTER 2017-10-26 21:30 | Emergency (ER) | payer SELFPAY ==
[2017-10-26] MEDS: traMADol 50 MG TABLET PO (22:34)
== END 2017-10-26 22:55 | disposition home or self-care (01) ==
LOC: ER 21:30
DX: K05.00 Acute gingivitis, plaque induced (principal); K02.9 Dental caries, unspecified; H66.43 Suppurative otitis media, unspecified, bilateral; J45.909 Unspecified asthma, uncomplicated; E10.9 Type 1 diabetes mellitus without complications
CPT/HCPCS: 99283

== ENCOUNTER 2017-11-04 16:01 | Emergency (ER) | payer SELFPAY ==
[2017-11-04 16:26] LABS: POC GLUCOSE 380 mg/dL (70-99)
[2017-11-04 16:31] LABS: BILIRUBIN,URINE NEGATIVE (NEG); CLARITY,URINE CLEAR; COLOR,URINE YELLOW; GLUCOSE,URINE >=1000 mg/dL (NEG); NITRITE,URINE NEGATIVE (NEG); PH,URINE 5.5; PROTEIN,URINE 100 mg/dL (NEG-TRACE); UROBILINOGEN,URINE 0.2 mg/dL (0.2 mg/dL)
[2017-11-04 16:36] LABS: BACTERIA,URINE FEW /HPF (0-FEW); SQUAMOUS EPITHELIAL CELL,UR MOD /LPF
[2017-11-04 16:37] LABS: YEAST,URINE PRESENT /HPF
[2017-11-04] MEDS: INSULIN REGULAR 100 UNIT/ML 3ML VIAL. IV (16:55)
== END 2017-11-04 17:12 | disposition home or self-care (01) ==
LOC: ER 16:01
DX: E10.65 Type 1 diabetes mellitus with hyperglycemia (principal); R31.9 Hematuria, unspecified; J45.909 Unspecified asthma, uncomplicated
CPT/HCPCS: 81001; 82962; 96374; 99284; J1815

== ENCOUNTER 2017-11-06 00:19 | Emergency (ER) | payer SELFPAY ==
[2017-11-06] MEDS: IPRATRPIUM/ALBUTEROL 0.5/2.5MG 3 ML NEBU. NEB (01:00)
[2017-11-06 01:04] LABS: URINE HCG POC HCG NEGATIVE (Negative)
== END 2017-11-06 01:58 | disposition home or self-care (01) ==
LOC: ER 00:19
DX: J40 Bronchitis, not specified as acute or chronic (principal); K05.10 Chronic gingivitis, plaque induced; J45.909 Unspecified asthma, uncomplicated; E10.9 Type 1 diabetes mellitus without complications
CPT/HCPCS: 71046; 81025; 94640; 99284; J7620

== ENCOUNTER 2017-11-10 02:21 | Emergency (ER) | payer SELFPAY ==
[2017-11-10] MEDS: HYDROcodone/APAP 5/325MG 1 TAB TABLET PO (03:00)
[2017-11-10] MEDS ORDERED: HYDROcodone/APAP 5/325MG 1 TAB TABLET (03:05)
[2017-11-10] MEDS ORDERED: HYDROcodone/APAP 5/325MG 1 TAB TABLET PO (03:30)
== END 2017-11-10 03:03 | disposition home or self-care (01) ==
LOC: ER 02:21
DX: K05.10 Chronic gingivitis, plaque induced (principal); K03.81 Cracked tooth; K00.6 Disturbances in tooth eruption; J45.909 Unspecified asthma, uncomplicated; E10.9 Type 1 diabetes mellitus without complications
CPT/HCPCS: 99283

== ENCOUNTER 2017-11-12 02:09 | Emergency (ER) | payer SELFPAY ==
[2017-11-12 02:19] LABS: POC GLUCOSE 212 mg/dL (70-99)
[2017-11-12 03:01] LABS: BILIRUBIN,URINE NEGATIVE (NEG); CLARITY,URINE CLEAR; COLOR,URINE YELLOW; GLUCOSE,URINE >=1000 mg/dL (NEG); NITRITE,URINE NEGATIVE (NEG); PROTEIN,URINE 100 mg/dL (NEG-TRACE); UROBILINOGEN,URINE 0.2 mg/dL (0.2 mg/dL)
[2017-11-12 03:09] LABS: BACTERIA,URINE 0 /HPF (0-FEW); RBC,URINE 0 /HPF (0-2); SQUAMOUS EPITHELIAL CELL,UR FEW /LPF; WBC,URINE OCC /HPF (0-4); YEAST,URINE PRESENT /HPF
[2017-11-12] MEDS: IV NORMAL SALINE 1000ML BAG 1,000 ML IV (03:28)
[2017-11-12] MEDS: busPIRone 5 MG TABLET. PO (03:38)
== END 2017-11-12 03:39 | disposition home or self-care (01) ==
LOC: ER 02:09
DX: E10.65 Type 1 diabetes mellitus with hyperglycemia (principal); F41.9 Anxiety disorder, unspecified; J45.909 Unspecified asthma, uncomplicated
CPT/HCPCS: 71046; 81001; 82962; 99285-25

== ENCOUNTER 2018-01-27 01:05 | Emergency (ER) | payer SELFPAY ==
[~2018-01-27] VITALS: Ht 157.5 cm; Wt 64.4 kg
[~2018-01-27 01:05] MED LIST changes: +AMOX1TAB61 PO; +AMOX500C PO; +AZIT250T PO; +BENZ100C PO; +BUSP5TAB PO; +CHLO15MO2 PO; +DOXY100C2 PO; +GUAI600T47 PO; +INSU100V5 SQ; +NAPR500T8 PO; +NPH,100V SQ
[2018-01-27 01:24] VITALS: BP 143/65
[2018-01-27] MEDS ORDERED: DICL50TA4 PO (02:01)
[2018-01-27] MEDS ORDERED: CIPR10DR AD (02:01)
--- NOTE | 2018-01-27 02:02 | PHYS DOC ---
Past Medical History Past Medical History: Anxiety, Asthma, Diabetes-Type I Additional Past Medical Histor: neuropathy; osteomyelitis, dental caries Past Surgical History: Other Additional Past Surgical Histo: left ankle Alcohol Use: None Drug Use: Methamphetamine Social History Narrative: 12/08/17 CLEAN FROM METH Adult General Chief Complaint Chief Complaint: FOREIGNBODY EAR HPI HPI Patient is a 42-year-old female who presents with complaint of right ear pain that has been going on for a few weeks and states that she had put a Q-tip in her ear and when she pulled the Q-tip out the cotton swab at the end had gotten stuck in her ear. She indicates that she was seen for her right ear pain sometime in December and had been prescribed antibiotic drops but she never got it filled. She denies any fever, nausea or vomiting. She also denies any loss of hearing. Patient rates pain in her ear is moderate. Review of Systems Review of Systems Constitutional: Denies fever or chills [] HENT: Complains of right ear pain[] Respiratory: Denies cough or shortness of breath [] Cardiovascular: No additional information not addressed in HPI [] Neurologic: Denies headache, focal weakness or sensory changes [] Allergies Allergies Allergies Coded Allergies Type Severity Reaction Last Updated Verified No Known Drug Allergies 03/07/13 No Physical Exam Physical Exam Constitutional: Well developed, well nourished, no acute distress, non-toxic appearance. [] HENT: Normocephalic, atraumatic, bilateral external ears normal. Right otic canal demonstrates swelling and redness. Patient reports pain when pulling the pinna. TM is not visualized due to amount of swelling. [] Eyes: PERRLA, EOMI, conjunctiva normal, no discharge. [] Neck: Normal range of motion, no tenderness, supple, no stridor. [] Cardiovascular:Heart rate regular rhythm [] Lungs & Thorax: Bilateral breath sounds clear to auscultation [] Extremities: No tenderness, no cyanosis, no clubbing, ROM intact, no edema. [] Current Patient Data Vital Signs Vital Signs Date Time Temp Pulse Resp B/P (MAP) Pulse Ox O2 Delivery O2 Flow Rate FiO2 01/27/18 01:24 98.6 89 14 143/65 (91) 95 Room Air 98.6 EKG EKG [] Radiology/Procedures Radiology/Procedures [] Course & Med Decision Making Course & Med Decision Making Pertinent Labs and Imaging studies reviewed. (See chart for details) [] Dragon Disclaimer Dragon Disclaimer This electronic medical record was generated, in whole or in part, using a voice recognition dictation system. Departure Departure Impression: Primary Impression: Otitis externa Additional Impressions: Dental caries Dentalgia Disposition: 01 HOME, SELF-CARE Condition: STABLE Referrals: NO PCP (PCP) Patient Instructions: Dental Caries, Otitis Externa Scripts Diclofenac Sodium (DICLOFENAC SODIUM) 50 Mg Tablet.dr 1 TAB PO BID PRN for PAIN, #20 TAB Prov: ADILENE MICHAEL Jr. DO 01/27/18 Ciprofloxacin/Hydrocortisone (CIPRO HC OTIC SUSPENSION) 10 Ml Drops.susp 3 DROP AD BID, #10 ML Prov: ADILENE MICHAEL Jr. DO 01/27/18 Problem Qualifiers Primary Impression: Otitis externa Otitis externa type: unspecified type Chronicity: unspecified Laterality: right Qualified Codes: H60.91 - Unspecified otitis externa, right ear ADILENE MICHAEL Jr. DO Jan 27, 2018 02:01
== END 2018-01-27 02:10 | disposition home or self-care (01) ==
LOC: ER 01:05
DX: H60.91 Unspecified otitis externa, right ear (principal); K02.9 Dental caries, unspecified; F41.9 Anxiety disorder, unspecified; J45.909 Unspecified asthma, uncomplicated; E10.9 Type 1 diabetes mellitus without complications; E10.40 Type 1 diabetes mellitus with diabetic neuropathy, unspecified; E10.69 Type 1 diabetes mellitus with other specified complication; M86.9 Osteomyelitis, unspecified
CPT/HCPCS: 99283

== ENCOUNTER 2018-02-19 09:20 | Emergency (ER) | payer SELFPAY ==
[~2018-02-19] VITALS: Ht 157.5 cm; Wt 63.5 kg
[~2018-02-19 09:20] MED LIST changes: +CIPR10DR AD; +DICL50TA4 PO; +HYDR-3164 PO; -HYDR-971 PO
[2018-02-19] MEDS ORDERED: predniSONE 10 MG TABLET PO ONE (10:15)
[2018-02-19] MEDS ORDERED: ALBUTEROL SULFATE 2.5 MG/3 ML NEBU. CONT NEB ONE (10:15)
[2018-02-19 11:18] VITALS: BP 144/77
[2018-02-19] MEDS ORDERED: PROAIR HFA8.5 GM INH (12:14)
[2018-02-19] MEDS ORDERED: PRED50TA PO (12:14)
--- NOTE | 2018-02-19 12:16 | PHYS DOC ---
Past Medical History Past Medical History: Anxiety, Asthma, Diabetes-Type I Additional Past Medical Histor: neuropathy; osteomyelitis, dental caries, substance abuse Past Surgical History: Other Additional Past Surgical Histo: left ankle Additional Information: 1/2 pack a day Alcohol Use: None Drug Use: Methamphetamine Adult General Chief Complaint Chief Complaint: COUGH HPI HPI Patient is a 42 year old female who presents with a cough 2 weeks. The patient states that she is a recovering meth addict who is staying at [facility]. She states that she does not have an inhaler at home. She is extremely wheezy and short of breath. She denies fever or chest pain. Review of Systems Review of Systems Constitutional: Denies fever or chills [] Eyes: Denies change in visual acuity, redness, or eye pain [] HENT: Denies nasal congestion or sore throat [] Respiratory: See history of present illness Cardiovascular: No additional information not addressed in HPI [] GI: Denies abdominal pain, nausea, vomiting, bloody stools or diarrhea [] : Denies dysuria or hematuria [] Musculoskeletal: Denies back pain or joint pain [] Integument: Denies rash or skin lesions [] Neurologic: Denies headache, focal weakness or sensory changes [] Endocrine: Denies polyuria or polydipsia [] All other systems were reviewed and found to be within normal limits, except as documented in this note. Current Medications Current Medications Current Medications Medications (Trade) Dose Ordered Sig/Kavin Start Time Stop Time Status Last Admin Dose Admin Albuterol Sulfate (Ventolin Neb Soln) 10 mg 1X ONCE 02/19/18 10:15 02/19/18 10:16 DC 02/19/18 10:42 10 MG Prednisone (Prednisone) 50 mg 1X ONCE 02/19/18 10:15 02/19/18 10:16 DC 02/19/18 10:46 50 MG Allergies Allergies Allergies Coded Allergies Type Severity Reaction Last Updated Verified No Known Drug Allergies 03/07/13 No Physical Exam Physical Exam Constitutional: Well developed, well nourished, no acute distress, non-toxic appearance. [] HENT: Normocephalic, atraumatic, bilateral external ears normal, oropharynx moist, no oral exudates, nose normal. [] Eyes: PERRLA, EOMI, conjunctiva normal, no discharge. [] Neck: Normal range of motion, no tenderness, supple, no stridor. [] Cardiovascular:Heart rate regular rhythm, no murmur [] Lungs & Thorax: Bilateral breath sounds have into drainage for wheezes throughout Abdomen: Bowel sounds normal, soft, no tenderness, no masses, no pulsatile masses. [] Skin: Warm, dry, no erythema, no rash. [] Neurologic: Alert and oriented X 3, normal motor function, normal sensory function, no focal deficits noted. [] Psychologic: Affect normal, judgement normal, mood normal. [] Current Patient Data Vital Signs Vital Signs Date Time Temp Pulse Resp B/P (MAP) Pulse Ox O2 Delivery O2 Flow Rate FiO2 02/19/18 11:18 94 18 144/77 (99) 95 Room Air 02/19/18 10:00 98.5 98.5 EKG EKG [] Radiology/Procedures Radiology/Procedures [] Course & Med Decision Making Course & Med Decision Making Pertinent Labs and Imaging studies reviewed. (See chart for details) []Patient received a dose of prednisone and a 1 hour albuterol treatment in the emergency department with resolution of her symptoms. Dragon Disclaimer Dragon Disclaimer This electronic medical record was generated, in whole or in part, using a voice recognition dictation system. Departure Departure Impression: Primary Impression: Asthma exacerbation Disposition: 01 HOME, SELF-CARE Condition: STABLE Referrals: NO PCP (PCP) Patient Instructions: Asthma, Adult Additional Instructions: The prednisone with food. Use the albuterol inhaler as needed. Follow-up with her primary care in 1 week if not improving or return to the emergency department if worsening. Scripts Albuterol Sulfate (PROAIR HFA INHALER) 8.5 Gm Hfa.aer.ad 1 PUFF INH PRN Q6HRS PRN for SHORTNESS OF BREATH, #1 INHALER 3 Refills Prov: CUONG LORENZANA APRN 02/19/18 Prednisone (PREDNISONE) 50 Mg Tablet 1 TAB PO DAILY for asthma, #5 TAB Prov: CUONG LORENZANA APRN 02/19/18 CUONG LORENZANA APRN Feb 19, 2018 12:15
== END 2018-02-19 12:27 | disposition home or self-care (01) ==
LOC: ER 09:20
DX: J45.901 Unspecified asthma with (acute) exacerbation (principal); F41.9 Anxiety disorder, unspecified; E10.40 Type 1 diabetes mellitus with diabetic neuropathy, unspecified; E10.69 Type 1 diabetes mellitus with other specified complication; M86.9 Osteomyelitis, unspecified; F17.200 Nicotine dependence, unspecified, uncomplicated
CPT/HCPCS: 94644; 99285; J7512; J7613; 94640

== ENCOUNTER 2018-03-19 15:00 | Emergency (ER) | payer SELFPAY ==
[~2018-03-19] VITALS: Ht 157.5 cm; Wt 61.2 kg
[~2018-03-19 15:00] MED LIST changes: +PRED50TA PO
[2018-03-19 15:25] VITALS: BP 153/79
[2018-03-19] MEDS ORDERED: HYDR-3164 PO (16:55)
--- NOTE | 2018-03-19 16:56 | PHYS DOC ---
Past Medical History Past Medical History: Asthma, Diabetes-Type I Additional Past Medical Histor: neuropathy; osteomyelitis, dental caries, substance abuse Past Surgical History: No Surgical History Additional Past Surgical Histo: left ankle Additional Information: 04/04 ppd Alcohol Use: None Drug Use: None Adult General Chief Complaint Chief Complaint: BACK PAIN - NO INJURY [facility] HPI Patient is a 43 year old female who presents with pain under her left shoulder blade since yesterday. The patient states that the pain is constant no matter how she positions her self. She has tried ibuprofen and Tylenol with no relief. The patient does have a history of kidney problems and has not followed up with her primary care provider. She states that she had had an elevated creatinine. I did counseling director her to his continue taking ibuprofen until she is evaluated. Review of Systems Review of Systems Constitutional: Denies fever or chills [] Respiratory: Denies cough or shortness of breath [] Cardiovascular: No additional information not addressed in HPI [] GI: Denies abdominal pain, nausea, vomiting, bloody stools or diarrhea [] : Denies dysuria or hematuria [] Musculoskeletal: See history of present illness Integument: Denies rash or skin lesions [] Neurologic: Denies headache, focal weakness or sensory changes [] Endocrine: Denies polyuria or polydipsia [] All other systems were reviewed and found to be within normal limits, except as documented in this note. Allergies Allergies Allergies Coded Allergies Type Severity Reaction Last Updated Verified No Known Drug Allergies 03/07/13 No Physical Exam Physical Exam Constitutional: Well developed, well nourished, no acute distress, non-toxic appearance. [] Cardiovascular:Heart rate regular rhythm, no murmur [] Lungs & Thorax: Bilateral breath sounds clear to auscultation [] Abdomen: Bowel sounds normal, soft, no tenderness, no masses, no pulsatile masses. [] Skin: Warm, dry, no erythema, no rash. [] Back: tenderness under her left scapula, no CVA tenderness. [] Extremities: No tenderness, no cyanosis, no clubbing, ROM intact, no edema. [] Neurologic: Alert and oriented X 3, normal motor function, normal sensory function, no focal deficits noted. [] Psychologic: Affect normal, judgement normal, mood normal. [] Current Patient Data Vital Signs Vital Signs Date Time Temp Pulse Resp B/P (MAP) Pulse Ox O2 Delivery O2 Flow Rate FiO2 03/19/18 15:25 98.2 80 16 153/79 (103) 98 Room Air 98.2 EKG EKG [] Radiology/Procedures Radiology/Procedures [] Course & Med Decision Making Course & Med Decision Making Pertinent Labs and Imaging studies reviewed. (See chart for details) [] Dragon Disclaimer Dragon Disclaimer This electronic medical record was generated, in whole or in part, using a voice recognition dictation system. Departure Departure Impression: Primary Impression: Bursitis Disposition: HOME, SELF-CARE Condition: STABLE Referrals: NO PCP (PCP) Patient Instructions: Bursitis Additional Instructions: Take the medication as directed. Follow-up with your primary care provider for a recheck on your kidney function. Do not drive or operate heavy machinery while taking this pain medication. If worsening return to the emergency department. Scripts Hydrocodone/Apap 5-325 (NORCO 5-325 TABLET) 1 Each Tablet 1 TAB PO PRN Q6HRS PRN for PAIN, #20 TAB 0 Refills Prov: CUONG LORENZANA APRN 03/19/18 CUONG LORENZANA APRN Mar 19, 2018 16:55
== END 2018-03-19 16:58 | disposition home or self-care (01) ==
LOC: ER 15:00
DX: M75.52 Bursitis of left shoulder (principal); J45.909 Unspecified asthma, uncomplicated; F17.200 Nicotine dependence, unspecified, uncomplicated; E10.40 Type 1 diabetes mellitus with diabetic neuropathy, unspecified; E10.69 Type 1 diabetes mellitus with other specified complication; M86.9 Osteomyelitis, unspecified
CPT/HCPCS: 99283

== ENCOUNTER 2018-07-05 18:13 | Emergency (ER) | payer SELFPAY ==
[~2018-07-05] VITALS: Ht 157.5 cm; Wt 64.9 kg
[~2018-07-05 18:13] MED LIST changes: +ALBU2.5V8 INH; -PROAIR HFA8.5 GM INH
[2018-07-05 18:26] VITALS: BP 159/76
[2018-07-05] MEDS ORDERED: HYDR-3164 PO (19:15)
[2018-07-05] MEDS ORDERED: AMOX875T PO (19:15)
--- NOTE | 2018-07-05 19:15 | PHYS DOC ---
Past Medical History Past Medical History: Asthma, Diabetes-Type I Additional Past Medical Histor: neuropathy; osteomyelitis, dental caries, substance abuse (XAVI ESPINAL APRN) Past Surgical History: No Surgical History Additional Past Surgical Histo: left ankle (XAVI ESPINAL APRN) Alcohol Use: None Drug Use: None (XAVI ESPINAL APRN) Adult General Chief Complaint Chief Complaint: DENTAL PROBLEM HPI HPI Patient is a 43 year old female with history of diabetes type 1, and asthma who presents to the ED today complaining of 9 out of 10 right upper dental pain that began 5 days ago. Patient denies any fever or trismus. She is also complaining of chronic bilateral ear infections. She states she does not want any eardrops anymore because they are not working. (XAVI ESPINAL APRN) Review of Systems Review of Systems Constitutional: Denies fever or chills [] Eyes: Denies change in visual acuity, redness, or eye pain [] HENT: Reports dental pain and chronic ear infections. Denies nasal congestion or sore throat [] Respiratory: Denies cough or shortness of breath [] Cardiovascular: No additional information not addressed in HPI [] GI: Denies abdominal pain, nausea, vomiting, bloody stools or diarrhea [] : Denies dysuria or hematuria [] Musculoskeletal: Denies back pain or joint pain [] Integument: Denies rash or skin lesions [] Neurologic: Denies headache, focal weakness or sensory changes [] All other systems were reviewed and found to be within normal limits, except as documented in this note. (XAVI ESPINAL APRN) Allergies Allergies Allergies Coded Allergies Type Severity Reaction Last Updated Verified No Known Drug Allergies 03/07/13 No (ASIYA CARRIZALES DO) Physical Exam Physical Exam Constitutional: Well developed, well nourished, no acute distress, non-toxic appearance. [] HENT: Normocephalic, atraumatic, bilateral external ears normal, oropharynx moist, no oral exudates, nose normal. Bilateral external ears with chronic mild swelling there is crustiness on the exterior ears suspicious of fungal infection. The exterior ears are erythematous. Bilateral ear canals are swollen and erythematous. The TM can barely be visualized but does not appear erythematous. There is yellow dry exudate to the ear canals bilaterally. Right upper first molar is decayed and broken. Most of her teeth are decayed and broken. Eyes: PERRLA, EOMI, conjunctiva normal, no discharge. [] Neck: Normal range of motion, no tenderness, supple, no stridor. [] Cardiovascular:Heart rate regular rhythm, no murmur [] Lungs & Thorax: Bilateral breath sounds clear to auscultation [] Abdomen: Bowel sounds normal, soft, no tenderness, no masses, no pulsatile masses. [] Skin: Warm, dry, no erythema, no rash. [] Back: No tenderness, no CVA tenderness. [] Extremities: No tenderness, no cyanosis, no clubbing, ROM intact, no edema. [] Neurologic: Alert and oriented X 3, normal motor function, normal sensory function, no focal deficits noted. [] Psychologic: Affect normal, judgement normal, mood normal. [] (XAVI ESPINAL APRN) Current Patient Data Vital Signs Vital Signs Date Time Temp Pulse Resp B/P (MAP) Pulse Ox O2 Delivery O2 Flow Rate FiO2 07/05/18 18:26 98.6 74 16 159/76 (103) 99 Room Air 98.6 (ASIYA CARRIZALES DO) EKG EKG [] (XAVI ESPINAL APRN) Radiology/Procedures Radiology/Procedures [] (XAVI ESPINAL APRN) Course & Med Decision Making Course & Med Decision Making Pertinent Labs and Imaging studies reviewed. (See chart for details) This is a 43-year-old female patient presenting to the ED today with complaints of chronic otitis externa, patient is refusing eardrops. We have seen this patient in our ED multiple times before. I have told patient to follow up with ENT considering this is a chronic condition. I also suspect her blood sugars are high considering some of the infection on the external part of her ears looks fungal. Patient is not willing to have her blood sugars checked in the ED. She is also complaining of dental pain, her teeth appear infected. She has poor dentition. Gave her prescription for amoxicillin, given a prescription of hydrocodone with requirement she must fill the prescription for amoxicillin before she is given hydrocodone. Recommended patient again follows up with ENT for chronic otitis externa (XAVI ESPINAL APRN) Dragon Disclaimer Dragon Disclaimer This electronic medical record was generated, in whole or in part, using a voice recognition dictation system. (XAVI ESPINAL APRN) Departure Departure Impression: Primary Impression: Otitis externa Additional Impression: Infected dental caries Disposition: HOME, SELF-CARE Condition: STABLE Referrals: NO PCP (PCP) ESTHER CALHOUN MD Please follow-up with the ENT doctor provided Patient Instructions: Dental Caries, Otitis Externa, [id number] Additional Instructions: You were dilated in the emergency room for chronic ear infection. As discussed her recommend you follow-up with ENT for this. We put you on amoxicillin. Take it as prescribed. Also follow-up with the dentist. Scripts Amoxicillin (AMOXICILLIN) 875 Mg Tablet 1 TAB PO BID, #20 TAB Prov: RICOSolXAVI APRN 07/05/18 Hydrocodone/Apap 5-325 (NORCO 5-325 TABLET) 1 Each Tablet 1 TAB PO Q6HRS, #8 TAB Must fill prescription for amoxicillin before being allowed to fill prescription for hydrocodone Prov: XAVI ESPINAL APRN 07/05/18 Attending Signature Attending Signature I have reviewed the PA/GEOSPATIAL INFORMATION SCIENTIST's note and plan of care. I was available for consultation as needed during the patient's visit in the emergency department. I agree with the clinical impression, plan, and disposition. (ASIYA CARRIZALES DO) Problem Qualifiers Primary Impression: Otitis externa Otitis externa type: other infective Chronicity: chronic Laterality: bilateral Qualified Codes: H60.393 - Other infective otitis externa, bilateral RICOSolXAVI APRN Jul 05, 2018 19:15 ASIYA CARRIZALES DO Jul 22, 2018 15:37
== END 2018-07-05 19:18 | disposition home or self-care (01) ==
LOC: ER 18:13
DX: K02.9 Dental caries, unspecified (principal); H60.393 Other infective otitis externa, bilateral; J45.909 Unspecified asthma, uncomplicated; E10.40 Type 1 diabetes mellitus with diabetic neuropathy, unspecified; E10.69 Type 1 diabetes mellitus with other specified complication; M86.9 Osteomyelitis, unspecified
CPT/HCPCS: 99283

== ENCOUNTER 2018-08-28 22:54 | Emergency (ER) | payer SELFPAY ==
[~2018-08-28] VITALS: Ht 157.5 cm; Wt 64.9 kg
[2018-08-28 22:54] VITALS: BP 156/89
[2018-08-29] MEDS ORDERED: HYDR-3164 PO (00:17)
[2018-08-29] MEDS ORDERED: AMOX500C PO (00:17)
--- NOTE | 2018-08-29 00:17 | PHYS DOC ---
Past Medical History Past Medical History: Asthma, Diabetes-Type I Additional Past Medical Histor: neuropathy; osteomyelitis, dental caries, substance abuse Past Surgical History: No Surgical History Additional Past Surgical Histo: left ankle Alcohol Use: None Drug Use: None Adult General Chief Complaint Chief Complaint: SKIN PROBLEM [facility] HPI Patient is a 43 year old female presents to ED complaining of ear pain 3 days ago. Patient states that she noticed both of her ears started to swell up. Patient states that she did not get her eardrops for her previous ear infections filled so the infection has gotten worse. No history of swimming. Patient also complains of a right upper molar broken tooth. Describes the pain as sharp. Rates the pain as 5 out of 10. Patient has a history of poor dentition. Denies tinnitus, hearing loss, nausea/vomiting, headache, fever, difficulty swallowing, chest pain, shortness of breath or cough. Review of Systems Review of Systems Constitutional: Denies fever or chills [] Eyes: Denies change in visual acuity, redness, or eye pain [] HENT: Complains of ear pain and dental pain. Denies nasal congestion or sore throat [] Respiratory: Denies cough or shortness of breath [] Cardiovascular: No additional information not addressed in HPI [] GI: Denies abdominal pain, nausea, vomiting, bloody stools or diarrhea [] : Denies dysuria or hematuria [] Musculoskeletal: Denies back pain or joint pain [] Integument: Denies rash or skin lesions [] Neurologic: Denies headache, focal weakness or sensory changes [] All other systems were reviewed and found to be within normal limits, except as documented in this note. Current Medications Current Medications Current Medications Medications (Trade) Dose Ordered Sig/Kavin Start Time Stop Time Status Last Admin Dose Admin Ciprofloxacin (Ciloxan Ophth) 1 drop 1X ONCE 08/29/18 01:00 08/29/18 01:01 08/29/18 00:28 1 DROP Dexamethasone (Maxidex) 1 drop 1X ONCE 08/29/18 01:00 08/29/18 01:01 08/29/18 00:28 1 DROP Allergies Allergies Allergies Coded Allergies Type Severity Reaction Last Updated Verified No Known Drug Allergies 03/07/13 No Physical Exam Physical Exam Constitutional: Well developed, well nourished, no acute distress, non-toxic appearance. [] HENT: Normocephalic, atraumatic, Bilateral ear canal erythema and swelling. unable to visualize TM. No mastoid tenderness. Right upper molar dental caries and Hernández type two fracture. No abscess or fluctuance. oropharynx moist, no oral exudates, nose normal. [] Eyes: PERRLA, EOMI, conjunctiva normal, no discharge. [] Neck: Normal range of motion, no tenderness, supple, no stridor. [] Cardiovascular:Heart rate regular rhythm, no murmur [] Lungs & Thorax: Bilateral breath sounds clear to auscultation [] Abdomen: Bowel sounds normal, soft, no tenderness, no masses, no pulsatile masses. [] Skin: Warm, dry, no erythema, no rash. [] Back: No tenderness, no CVA tenderness. [] Extremities: No tenderness, no cyanosis, no clubbing, ROM intact, no edema. [] Neurologic: Alert and oriented X 3, normal motor function, normal sensory fu nction, no focal deficits noted. [] Psychologic: Affect normal, judgement normal, mood normal. [] Current Patient Data Vital Signs Vital Signs Date Time Temp Pulse Resp B/P (MAP) Pulse Ox O2 Delivery O2 Flow Rate FiO2 08/28/18 22:54 98.2 89 20 156/89 (111) 95 Room Air 98.2 EKG EKG [] Radiology/Procedures Radiology/Procedures [] Course & Med Decision Making Course & Med Decision Making Pertinent Labs and Imaging studies reviewed. (See chart for details) []Ear westley placed in the ED and patient given Cipro and dexamethasone drops in the ED. We'll discharge with drops as patient was unable to obtain drops outpatient. Patient also prescribed amoxicillin as well since we're unable to visualize TMs. Patient's pain improved in the ED. No mastoid tenderness or heading issues. Discussed symptomatic treatment and follow-up with PCP in one to 2 days. Provided contact information/education. Discussed reasons to return to the ED. Patient understands and agrees with plan. Dragon Disclaimer Dragon Disclaimer This electronic medical record was generated, in whole or in part, using a voice recognition dictation system. Departure Departure Impression: Primary Impression: Pain, dental Additional Impressions: Dental caries Otitis externa Disposition: HOME, SELF-CARE Condition: IMPROVED Referrals: NO PCP (PCP) LIZBETH SANFORD MD,ASIYA Bautista MD Patient Instructions: Dental Caries, Dental Injury, Otitis Externa Scripts Hydrocodone/Apap 5-325 (NORCO 5-325 TABLET) 1 Each Tablet 1 TAB PO BID for 3 Days, #6 TAB Prov: AMBER DAMIAN 08/29/18 Amoxicillin (AMOXICILLIN) 500 Mg Capsule 1 CAP PO TID for 10 Days, #30 CAP Prov: AMBER DAMIAN 08/29/18 Problem Qualifiers AMBER DAMIAN August 29, 2018 00:17
[2018-08-29] MEDS ORDERED: CIPROFLOXACIN 0.3% OPHTH SOLUTION 5ML BOTTLE. AU ONE (01:00)
[2018-08-29] MEDS ORDERED: DEXAMETHASONE 0.1% OPHTH SOLUTION 5ML BOTTLE. AU ONE (01:00)
== END 2018-08-29 01:07 | disposition home or self-care (01) ==
LOC: ER 22:54
DX: S02.412A LeFort II fracture, initial encounter for closed fracture (principal); K02.9 Dental caries, unspecified; H60.8X3 Other otitis externa, bilateral; J45.909 Unspecified asthma, uncomplicated; E10.40 Type 1 diabetes mellitus with diabetic neuropathy, unspecified; E10.69 Type 1 diabetes mellitus with other specified complication; M86.9 Osteomyelitis, unspecified; X58.XXXA Exposure to other specified factors, initial encounter; Y93.89 Activity, other specified; Y92.89 Other specified places as the place of occurrence of the external cause; Y99.8 Other external cause status
CPT/HCPCS: 99283

== ENCOUNTER 2018-10-17 11:38 | Emergency (ER) | payer SELFPAY ==
[~2018-10-17] VITALS: Ht 157.5 cm; Wt 59.0 kg
[2018-10-17 11:58] VITALS: BP 159/73
--- NOTE | 2018-10-17 13:28 | RAD ---
HUMERUS RIGHT, ELBOW RIGHT 3V 10/17/2018 12:23 PM INDICATION: Fall and hit elbow on a break COMPARISON: None available. TECHNIQUE: 3 views of the right elbow and 2 views of the right humerus are provided. FINDINGS: There is no acute fracture or dislocation. There is elevation of the anterior fat pad and minimal aeration of the posterior fat pad which may reflect underlying joint effusion. Bone mineralization is within normal limits. Joint spaces are maintained. Regional soft tissues are within normal limits. There is no soft tissue gas or osseous erosion. IMPRESSION: No acute fracture or dislocation. There is elevation of the anterior fat pad and minimal aeration of the posterior fat pad which may reflect underlying joint effusion. If symptoms persist, recommend repeat evaluation in 7-10 days to assess for occult fracture. Electronically signed by: Sana Gonzales MD (10/17/2018 1:25 PM) [id number]
[2018-10-17] MEDS ORDERED: IBUP-1007 PO (13:42)
[2018-10-17] MEDS ORDERED: HYDR-3164 PO (13:42)
--- NOTE | 2018-10-17 13:42 | PHYS DOC ---
Past Medical History Past Medical History: Asthma, Diabetes-Type I, Other Additional Past Medical Histor: neuropathy; osteomyelitis, dental caries, substance abuse Past Surgical History: No Surgical History Additional Past Surgical Histo: left ankle Alcohol Use: None Drug Use: None Adult General Chief Complaint Chief Complaint: ELBOW PROBLEM [facility] HPI Patient is a 43 year old Female who presents with was going down some steps 2 days ago when she tripped and try to catch herself and hit her right inner elbow on some brick on the house. She states she noticed some tingling in her right hand and the pain is sharp and shooting. She rates pain a 5 out of 10. Review of Systems Review of Systems Constitutional: Denies fever or chills [] Eyes: Denies change in visual acuity, redness, or eye pain [] HENT: Denies nasal congestion or sore throat [] Respiratory: Denies cough or shortness of breath [] Cardiovascular: No additional information not addressed in HPI [] GI: Denies abdominal pain, nausea, vomiting, bloody stools or diarrhea [] : Denies dysuria or hematuria [] Musculoskeletal: Denies back pain. Right elbow joint pain [] Integument: Denies rash or skin lesions [] Neurologic: Denies headache, focal weakness or sensory changes [] Endocrine: Denies polyuria or polydipsia [] All other systems were reviewed and found to be within normal limits, except as documented in this note. Allergies Allergies Allergies Coded Allergies Type Severity Reaction Last Updated Verified No Known Drug Allergies 03/07/13 No Physical Exam Physical Exam Constitutional: Well developed, well nourished, no acute distress, non-toxic appearance. [] HENT: Normocephalic, atraumatic, bilateral external ears normal, oropharynx moist, no oral exudates, nose normal. [] Eyes: PERRLA, EOMI, conjunctiva normal, no discharge. [] Neck: Normal range of motion, no tenderness, supple, no stridor. [] Cardiovascular:Heart rate regular rhythm, no murmur [] Lungs & Thorax: Bilateral breath sounds clear to auscultation [] Abdomen: Bowel sounds normal, soft, no tenderness, no masses, no pulsatile masses. [] Skin: Warm, dry, no erythema, no rash. [] Back: No tenderness, no CVA tenderness. [] Extremities: Right inner elbow tenderness, no cyanosis, no clubbing, ROM intact, no edema. [] Neurologic: Alert and oriented X 3, normal motor function, normal sensory function, no focal deficits noted. [] Psychologic: Affect normal, judgement normal, mood normal. [] Current Patient Data Vital Signs Vital Signs Date Time Temp Pulse Resp B/P (MAP) Pulse Ox O2 Delivery O2 Flow Rate FiO2 10/17/18 11:58 98.5 89 18 159/73 (101) 96 Room Air 98.5 EKG EKG [] Radiology/Procedures Radiology/Procedures [] Impressions: [facility] [address] [place] [address] IMAGING REPORT Signed PATIENT: RENEE MARQUEZ ACCOUNT: [id number] : 1975 LOCATION: ER AGE: 43 SEX: F EXAM STATUS: REG ER ORD. PHYSICIAN: POLO ESTRADA APRN REASON: pain, FELL AND HIT ELBOW ON A BRICK PROCEDURE: ELBOW RIGHT 3V HUMERUS RIGHT, ELBOW RIGHT 3V 10/17/2018 12:23 PM INDICATION: Fall and hit elbow on a break COMPARISON: None available. TECHNIQUE: 3 views of the right elbow and 2 views of the right humerus are provided. FINDINGS: There is no acute fracture or dislocation. There is elevation of the anterior fat pad and minimal aeration of the posterior fat pad which may reflect underlying joint effusion. Bone mineralization is within normal limits. Joint spaces are maintained. Regional soft tissues are within normal limits. There is no soft tissue gas or osseous erosion. IMPRESSION: No acute fracture or dislocation. There is elevation of the anterior fat pad and minimal aeration of the posterior fat pad which may reflect underlying joint effusion. If symptoms persist, recommend repeat evaluation in 7-10 days to assess for occult fracture. Electronically signed by: Truman Yeboah MD (10/17/2018 1:25 PM) [id number] DICTATED and SIGNED BY: TRUMAN YEBOAH MD DATE: 10/17/18 1325 Course & Med Decision Making Course & Med Decision Making Patient is a 43 year old Female who presents with was going down some steps 2 days ago when she tripped and try to catch herself and hit her right inner elbow on some brick on the house. She states she noticed some tingling in her right hand and the pain is sharp and shooting. She rates pain a 5 out of 10. There is no bruising or swelling or deformity to the right elbow. 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 There is tenderness to the inner elbow but no tenderness up into the humerus down into the forearm. Patient has full range of motion of the elbow. Skin is pink warm and dry. Patient to take ibuprofen to help with pain and will need to follow-up with primary care provider specialist if symptoms persists. X-rays show No acute fracture or dislocation. There is elevation of the anterior fat pad and minimal aeration of the posterior fat pad which may reflect underlying joint effusion. If symptoms persist, recommend repeat evaluation in 7-10 days to assess for occult fracture. Dragon Disclaimer Dragon Disclaimer This electronic medical record was generated, in whole or in part, using a voice recognition dictation system. Departure Departure Impression: Primary Impression: Elbow contusion Disposition: HOME, SELF-CARE Condition: STABLE Referrals: NO PCP (PCP) ARLIN DICKINSON MD Patient Instructions: Elbow Contusion Additional Instructions: Follow-up with primary care provider or Dr. Dickinson if you are not better in the next 5 days. Take ibuprofen and elevate arm to help with pain. Scripts Ibuprofen (IBUPROFEN) 600 Mg Tablet 600 MG PO PRN Q6HRS PRN for INFLAMMATION, #15 TAB Prov: POLO ESTRADA APRN 10/17/18 Hydrocodone/Apap 5-325 (NORCO 5-325 TABLET) 1 Each Tablet 1 TAB PO PRN Q6HRS PRN for PAIN, #6 TAB 0 Refills Prov: POLO ESTRADA APRN 10/17/18 Problem Qualifiers Primary Impression: Elbow contusion Encounter type: initial encounter Laterality: right Qualified Codes: S50.01XA - Contusion of right elbow, initial encounter POLO ESTRADA APRN Oct 17, 2018 13:42
== END 2018-10-17 13:55 | disposition home or self-care (01) ==
LOC: ER 11:38
DX: S50.01XA Contusion of right elbow, initial encounter (principal); J45.909 Unspecified asthma, uncomplicated; E10.40 Type 1 diabetes mellitus with diabetic neuropathy, unspecified; R20.2 Paresthesia of skin; W10.9XXA Fall (on) (from) unspecified stairs and steps, initial encounter; Y93.89 Activity, other specified; Y92.009 Unspecified place in unspecified non-institutional (private) residence as the place of occurrence of the external cause; Y99.8 Other external cause status
CPT/HCPCS: 73060; 73080; 99284

== ENCOUNTER 2018-11-30 19:14 | Emergency (ER) | payer SELFPAY ==
[~2018-11-30] VITALS: Ht 157.5 cm; Wt 68.5 kg
[~2018-11-30 19:14] MED LIST changes: +CIPR7.5D RIGHT EAR; +FAMO20TA5 PO; +IBUP-1007 PO
[2018-11-30 19:35] VITALS: BP 120/68
[2018-11-30] MEDS ORDERED: CLIN300C8 PO (20:48)
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
[2018-11-30] MEDS ORDERED: HYDR-2761 PO (20:51)
[2018-11-30] MEDS ORDERED: DIPHTH,PERTUSS(ACELL),TET TOX 0.5 ML DISP.SYRIN. VAX IM ONE (21:00)
== END 2018-11-30 21:05 | disposition home or self-care (01) ==
LOC: ER 19:14
DX: T24.002A Burn of unspecified degree of unspecified site of left lower limb, except ankle and foot, initial encounter (principal); E10.40 Type 1 diabetes mellitus with diabetic neuropathy, unspecified; K21.9 Gastro-esophageal reflux disease without esophagitis; J45.909 Unspecified asthma, uncomplicated; E10.69 Type 1 diabetes mellitus with other specified complication; M86.9 Osteomyelitis, unspecified; W49.01XA Hair causing external constriction, initial encounter; Y93.89 Activity, other specified; Y92.89 Other specified places as the place of occurrence of the external cause; Y99.8 Other external cause status
CPT/HCPCS: 90471; 90715; 99283

== ENCOUNTER 2019-01-14 09:09 | Emergency (ER) | payer SELFPAY ==
[~2019-01-14] VITALS: Ht 160 cm; Wt 68.0 kg
[~2019-01-14 09:09] MED LIST changes: +AMOX1TAB10 PO; +CLIN300C8 PO; +HYDR-2761 PO
[2019-01-14 09:46] VITALS: BP 170/74
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
[2019-01-14] MEDS ORDERED: IBUPROFEN 200 MG TABLET. PO ONE (10:15)
--- NOTE | 2019-01-14 10:22 | RAD ---
RIBS RIGHT AND PA CHEST History: Fall, right lower rib pain Comparison: November 12, 2017 Findings: Single view of the chest and 4 additional views of the ribs are submitted. Heart size is stable. There is no pneumothorax, lobar infiltrate, pleural fluid. No displaced right rib fracture is identified by radiographs. Impression: 1. No acute radiographic abnormality is identified. Electronically signed by: Dawood García MD (01/14/2019 10:19 AM) [id number]
[2019-01-14] MEDS ORDERED: IBUP-1007 PO (10:35)
== END 2019-01-14 10:56 | disposition home or self-care (01) ==
LOC: ER 09:09
DX: S20.211A Contusion of right front wall of thorax, initial encounter (principal); R06.02 Shortness of breath; J45.909 Unspecified asthma, uncomplicated; K21.9 Gastro-esophageal reflux disease without esophagitis; E10.40 Type 1 diabetes mellitus with diabetic neuropathy, unspecified; W01.0XXA Fall on same level from slipping, tripping and stumbling without subsequent striking against object, initial encounter; Y93.89 Activity, other specified; Y92.89 Other specified places as the place of occurrence of the external cause; Y99.8 Other external cause status
CPT/HCPCS: 71101; 99284

== ENCOUNTER 2019-03-01 15:26 | Emergency (ER) | payer SELFPAY ==
[~2019-03-01] VITALS: Ht 160 cm; Wt 68.0 kg
[2019-03-01 15:49] VITALS: BP 141/68
[2019-03-01 16:08] LABS: BILIRUBIN,URINE NEGATIVE (NEG); CLARITY,URINE CLEAR; COLOR,URINE YELLOW; NITRITE,URINE NEGATIVE (NEG); PH,URINE 6.5; PROTEIN,URINE 30 mg/dL (NEG-TRACE); UROBILINOGEN,URINE 0.2 mg/dL (0.2 mg/dL)
[2019-03-01 16:23] LABS: SQUAMOUS EPITHELIAL CELL,UR MOD /LPF
[2019-03-01 16:24] LABS: BACTERIA,URINE 0 /HPF (0-FEW); WBC,URINE RARE /HPF (0-4)
--- NOTE | 2019-03-01 17:07 | PHYS DOC ---
Past Medical History Past Medical History: Asthma, Diabetes-Type I, GERD, Other Additional Past Medical Histor: neuropathy; osteomyelitis, dental caries, substance abuse (PADILLA CR APRN) Past Surgical History: No Surgical History Additional Past Surgical Histo: left ankle (PADILLA CR APRN) Alcohol Use: None Drug Use: None (PADILLA CR APRN) Attending Signature I have participated in the care of this patient and I have reviewed and agree with all pertinent clinical information above including history, exam, and recommendations. (ARPITA DE LA ROSA MD) Adult General Chief Complaint Chief Complaint: PAIN ON URINATION [facility] HPI Patient is a 43 year old female with a by her daughter, who presents to the e mergency department with complaints of foul-smelling urine, increased urinary frequency and feeling like her bladder is not emptying. Patient also complains of chills and nausea. She denies any fever, vomiting, diarrhea, abdominal pain, cough, shortness of breath, wheezing, ear pain, sore throat, body aches, or headache. Patient states she has had low back pain with dysuria for the last week. She denies any hematuria. Patient reports concern because she has been waking up several times every night to use the bathroom. He denies any incontinence. She currently rates her discomfort a 6 out of 10 on the pain scale she denies any alleviating factors. All other ROS is neg unless otherwise noted in HPI. (PADILLA CR APRN) Review of Systems Review of Systems See Above (PADILLA CR APRN) Allergies Allergies Allergies Coded Allergies Type Severity Reaction Last Updated Verified No Known Drug Allergies 03/07/13 No (ARPITA DE LA ROSA MD) Physical Exam Physical Exam See Above Constitutional: Well developed, well nourished, no acute distress, non-toxic appearance. [] HENT: Normocephalic, atraumatic, bilateral external ears normal, nose normal. [] Eyes: PERRLA, EOMI, conjunctiva normal, no discharge. [] Neck: Normal range of motion, no stridor. [] Cardiovascular:Heart rate regular rhythm, no murmur [] Lungs & Thorax: Bilateral breath sounds clear to auscultation [] Abdomen: soft, no tenderness Skin: Warm, dry, no erythema, no rash. [] Back: No CVA tenderness. [] Extremities: No cyanosis, ROM intact Neurologic: Alert and oriented X 3, no focal deficits noted. [] Psychologic: Affect normal, judgement normal, mood normal. [] (PADILLA CR APRN) Current Patient Data Vital Signs Vital Signs Date Time Temp Pulse Resp B/P (MAP) Pulse Ox O2 Delivery O2 Flow Rate FiO2 03/01/19 15:49 98.3 84 16 141/68 (92) 96 Room Air 98.3 (ARPITA DE LA ROSA MD) Lab Values Laboratory Tests Test 03/01/19 15:30 03/01/19 15:54 Urine Collection Type Unknown Urine Color Yellow Urine Clarity Clear Urine pH 6.5 Urine Specific [place] 1.025 Urine Protein 30 mg/dL (NEG-TRACE) Urine Glucose (UA) >=1000 mg/dL (NEG) Urine Ketones (Stick) Negative mg/dL (NEG) Urine Blood Negative (NEG) Urine Nitrite Negative (NEG) Urine Bilirubin Negative (NEG) Urine Urobilinogen Dipstick 0.2 mg/dL (0.2 mg/dL) Urine Leukocyte Esterase Negative (NEG) Urine RBC 1-2 /HPF (0-2) Urine WBC Rare /HPF (0-4) Urine Squamous Epithelial Cells Mod /LPF Urine Bacteria 0 /HPF (0-FEW) POC Urine HCG, Qualitative Hcg negative (Negative) (ARPITA DE LA ROSA MD) EKG EKG [] (PADILLA CR APRN) Radiology/Procedures Radiology/Procedures [] (PADILLA CR APRN) Course & Med Decision Making Course & Med Decision Making Pertinent Labs and Imaging studies reviewed. (See chart for details) dx: urinary frequency UA was unremarkable for any acute urinary tract infection. Urine test was also negative. The patient was encouraged to follow up with her primary care provider for further evaluation of increased urinary frequency. Patient verbalized an understanding of home care, medications, follow-up, and return to ED instructions and was in agreement with the plan of care. [] (PADILLA CR APRN) Dragon Disclaimer Dragon Disclaimer This electronic medical record was generated, in whole or in part, using a voice recognition dictation system. (BOGUSLAW,PADILLA D POULTRY OFFAL WORKER) Departure Departure Impression: Primary Impression: Increased urinary frequency Disposition: HOME, SELF-CARE Condition: STABLE Referrals: NO PCP (PCP) Patient Instructions: Urinary Frequency Additional Instructions: Follow up with you primary care doctor for further treatment of increased urinary frequency. Your urine was free of infection today. Return to the ER if your symptoms worsen. PADILLA CR APRN Mar 01, 2019 17:07 ARPITA DE LA ROSA MD Mar 03, 2019 02:14
== END 2019-03-01 17:14 | disposition home or self-care (01) ==
LOC: ER 15:26
DX: R35.0 Frequency of micturition (principal); J45.909 Unspecified asthma, uncomplicated; K21.9 Gastro-esophageal reflux disease without esophagitis; E10.21 Type 1 diabetes mellitus with diabetic nephropathy; Z98.890 Other specified postprocedural states
CPT/HCPCS: 81001; 81025; 99283

== ENCOUNTER 2019-05-21 19:08 | Emergency (ER) | payer SELFPAY ==
[~2019-05-21] VITALS: Ht 160 cm; Wt 68.0 kg
[2019-05-21 20:30] VITALS: BP 126/58
[2019-05-21] MEDS ORDERED: IPRATRPIUM/ALBUTEROL 0.5/2.5MG 3 ML NEBU. NEB ONE (22:00)
--- NOTE | 2019-05-21 22:12 | PHYS DOC ---
Past Medical History Past Medical History: No Pertinent History Additional Past Medical Histor: neuropathy; osteomyelitis, dental caries, substance abuse Past Surgical History: No Surgical History Additional Past Surgical Histo: left ankle Smoking Status: Never Smoker Alcohol Use: None Drug Use: None Adult General Chief Complaint Chief Complaint: COUGH HPI HPI Patient is a 44 year old female who presents with a cough this been ongoing since Monday. The patient states that her pain from the cough as 7 out of 10 severity sharp. The patient also has been wheezing. Denies any history of asthma. Review of Systems Review of Systems Constitutional: Denies fever or chills [] Eyes: Denies change in visual acuity, redness, or eye pain [] HENT: Denies nasal congestion or sore throat [] Respiratory: Reports cough and shortness of breath [] Cardiovascular: No additional information not addressed in HPI [] GI: Denies abdominal pain, nausea, vomiting, bloody stools or diarrhea [] : Denies dysuria or hematuria [] Musculoskeletal: Denies back pain or joint pain [] Integument: Denies rash or skin lesions [] Neurologic: Denies headache, focal weakness or sensory changes [] Endocrine: Denies polyuria or polydipsia [] Complete systems were reviewed and found to be within normal limits, except as documented in this note. Current Medications Current Medications Current Medications Medications (Trade) Dose Ordered Sig/Kavin Start Time Stop Time Status Last Admin Dose Admin Albuterol/ Ipratropium (Duoneb) 3 ml 1X ONCE 05/21/19 22:00 05/21/19 22:01 DC 05/21/19 22:25 3 ML Allergies Allergies Allergies Coded Allergies Type Severity Reaction Last Updated Verified No Known Drug Allergies 03/07/13 No Physical Exam Physical Exam Constitutional: Well developed, well nourished, no acute distress, non-toxic appearance. [] HENT: Normocephalic, atraumatic, bilateral external ears normal, oropharynx moist, no oral exudates, nose normal. [] Eyes: PERRLA, EOMI, conjunctiva normal, no discharge. [] Neck: Normal range of motion, no tenderness, supple, no stridor. [] Cardiovascular:Heart rate regular rhythm, no murmur [] Lungs & Thorax: Bilateral breath sounds have scattered wheezes throughout lungs. Abdomen: Bowel sounds normal, soft, no tenderness, no masses, no pulsatile masses. [] Skin: Warm, dry, no erythema, no rash. [] Back: No tenderness, no CVA tenderness. [] Extremities: No tenderness, no cyanosis, no clubbing, ROM intact, no edema. [] Neurologic: Alert and oriented X 3, normal motor function, normal sensory function, no focal deficits noted. [] Psychologic: Affect normal, judgement normal, mood normal. [] Current Patient Data Vital Signs Vital Signs Date Time Temp Pulse Resp B/P (MAP) Pulse Ox O2 Delivery O2 Flow Rate FiO2 05/21/19 22:27 97 Room Air 05/21/19 20:30 98.8 90 18 126/58 (80) 98.8 EKG EKG [] Radiology/Procedures Radiology/Procedures [][facility] [address] [place] [address] IMAGING REPORT Signed PATIENT: RENEE MARQUEZACCOUNT: [id number] : 1975 LOCATION: ER AGE: 44 SEX: F EXAM STATUS: REG ER ORD. PHYSICIAN: ASIYA FELIX APRN REASON: cough, fever PROCEDURE: CHEST PA & LATERAL CHEST PA LATERAL INDICATION: Cough, fever. COMPARISON STUDY: 01/14/2019, 11/12/2017. FINDINGS: Lungs: Normal lung volume. Mild opacities in the bilateral lower lung zones. The tracheobronchial tree and hilar structures are normal. Pleura: No pleural effusion or pneumothorax. Heart and Mediastinum: The cardiomediastinal silhouette is normal. The great vessels of the thorax are normal. IMPRESSION: Mild bibasilar opacities, which could represent subsegmental atelectasis or potentially an infectious/plantar process. Electronically signed by: Kevan Espinosa MD (05/21/2019 10:20 PM) [id number] DICTATED and SIGNED BY: KEVAN ESPINOSA MD DATE: 05/21/192219 Course & Med Decision Making Course & Med Decision Making Pertinent Labs and Imaging studies reviewed. (See chart for details) Will get Chest x-ray, and give breathing treatment. Discussed with patient the importance of checking blood sugars when sick. Chest x-ray shows pneumonia. Will place on Doxycycline. Dragon Disclaimer Dragon Disclaimer This electronic medical record was generated, in whole or in part, using a voice recognition dictation system. Departure Departure Impression: Primary Impression: Pneumonia Disposition: 01 HOME, SELF-CARE Condition: STABLE Referrals: NO PCP (PCP) Patient Instructions: Pneumonia, Adult Additional Instructions: Thank you for visiting [facility]. We appreciate you trusting us with your care. If any additional problems come up don't hesitate to return to visit us. Please follow up with your primary care provider so they can plan additional care if needed and know about the problem that you had. If symptoms worsen come back to the Emergency Department. Any concerning symptoms that start such as chest pain, shortness of air, weakness or numbness on one side of the body, running high fevers or any other concerning symptoms return to the ER. You have been prescribed an antibiotic today to help fight your infection. Please take all of the antibiotic as directed. If after 48 hours the infection is not improving, please return for more care. If the infection worsens, return to ER for additional care. Scripts Doxycycline Hyclate (DOXYCYCLINE HYCLATE) 100 Mg Capsule 1 CAP PO BID for 10 Days, #20 CAP Prov: ASIYA FELIX APRN 05/21/19 Problem Qualifiers Primary Impression: Pneumonia Pneumonia type: due to unspecified organism Laterality: unspecified laterality Lung location: unspecified part of lung Qualified Codes: J18.9 - Pneumonia, unspecified organism ASIYA FELIX APRN May 21, 2019 22:12
--- NOTE | 2019-05-21 22:23 | RAD ---
CHEST PA LATERAL INDICATION: Cough, fever. COMPARISON STUDY: 01/14/2019, 11/12/2017. FINDINGS: Lungs: Normal lung volume. Mild opacities in the bilateral lower lung zones. The tracheobronchial tree and hilar structures are normal. Pleura: No pleural effusion or pneumothorax. Heart and Mediastinum: The cardiomediastinal silhouette is normal. The great vessels of the thorax are normal. IMPRESSION: Mild bibasilar opacities, which could represent subsegmental atelectasis or potentially an infectious/plantar process. Electronically signed by: Dawood Kearns MD (05/21/2019 10:20 PM) [id number]
[2019-05-21] MEDS ORDERED: DOXY100C2 PO (22:35)
== END 2019-05-21 22:49 | disposition home or self-care (01) ==
LOC: ER 19:08
DX: J18.9 Pneumonia, unspecified organism (principal); R05 Cough; R06.2 Wheezing; G62.9 Polyneuropathy, unspecified; Z98.890 Other specified postprocedural states
CPT/HCPCS: 71046; 94640; 99283; J7620

== ENCOUNTER 2019-06-06 10:40 | Emergency (ER) | payer SELFPAY ==
[~2019-06-06] VITALS: Ht 160 cm; Wt 66.8 kg
[2019-06-06] MEDS ORDERED: IV NORMAL SALINE 1000ML BAG 1,000 ML IV SCH (14:09)
[2019-06-06] MEDS ORDERED: IPRATRPIUM/ALBUTEROL 0.5/2.5MG 3 ML NEBU. NEB ONE (14:15)
[2019-06-06 14:18] LABS: BASO # 0.1 x10^3/uL (0.0-0.2); BASO % 1 % (0-3); EOS # 0.1 x10^3/uL (0.0-0.7); EOS % 1 % (0-3); HEMATOCRIT 41.2 % (36.0-47.0); HEMOGLOBIN 13.7 g/dL (12.0-15.5); LYMPH # 4.5 x10^3/uL (1.0-4.8); LYMPH % 38 % (24-48); MEAN CORPUSCULAR HEMOGLOBIN 29 pg (25-35); MEAN CORPUSCULAR HGB CONC 33 g/dL (31-37); MEAN CORPUSCULAR VOLUME 89 fL (79-100); MONO # 0.6 x10^3/uL (0.0-1.1); MONO % 5 % (0-9); NEUT # 6.4 x10^3/uL (1.8-7.7); NEUT % 55 % (31-73); PLATELET COUNT 593 x10^3/uL (140-400); RED BLOOD COUNT 4.64 x10^6/uL (3.50-5.40); RED CELL DISTRIBUTION WIDTH 15.1 % (11.5-14.5); WHITE BLOOD COUNT 11.8 x10^3/uL (4.0-11.0)
--- NOTE | 2019-06-06 14:38 | RAD ---
CHEST PA LATERAL Clinical indications: Cough and chest wall pain. COMPARISON: May 21, 2019. Findings: Hyperinflation is seen consistent with COPD. No acute lung infiltrate or pleural effusion or pulmonary edema or lung mass or pneumothorax is seen. The heart size, pulmonary vasculature, mediastinum and both brenda are unremarkable. There is a displaced fracture of the lateral aspect of the right sixth rib. Impression: New finding of a displaced fracture of the lateral aspect of the right sixth rib. No pneumothorax or pleural effusion or lung consolidation is seen. COPD. Electronically signed by: Angelo Joel MD (06/06/2019 2:35 PM) [facility] [place]
[2019-06-06 14:39] LABS: CALCIUM 9.2 mg/dL (8.5-10.1); GFR 60.2; POTASSIUM 4.5 mmol/L (3.5-5.1)
[2019-06-06 14:44] LABS: ALBUMIN 3.7 g/dL (3.4-5.0); TOTAL BILIRUBIN 0.3 mg/dL (0.2-1.0); TOTAL PROTEIN 7.4 g/dL (6.4-8.2)
--- NOTE | 2019-06-06 15:02 | NUR ---
Pt reports feeling like her blood sugar is low. Elli MAGDALENO and Dr. Rodriguez notified of pt's blood sugar of 50. Per Dr. Michael florez, pt given two orange juice cups.
--- NOTE | 2019-06-06 15:36 | PHYS DOC ---
Past Medical History Past Medical History: Diabetes-Type II, Hypertension, Pneumonia, Other Additional Past Medical Histor: neuropathy; osteomyelitis, dental caries, substance abuse Past Surgical History: No Surgical History Additional Past Surgical Histo: left ankle I&D Smoking Status: Current Every Day Smoker Additional Information: 1 PPD Alcohol Use: None Drug Use: None Adult General Chief Complaint Chief Complaint: SHORTNESS OF BREATH HPI HPI Patient is a 44 year old female with history of hypertension, diabetes mellitus , neuropathy; osteomyelitis, dental caries, substance abuse who presents with complaint of chest wall pain. Patient states she had diagnosis of pneumonia about 17 days ago and feels better with her cough and shortness of breath but has constant right lateral and lower chest wall that getting worse with movement and taking deep breaths. Patient rated her pain 10/10 and stated she took multiple Motrin without improvement of her pain. She denies fever, vomiting and diarrhea, urinary symptoms, . Review of Systems Review of Systems Constitutional: Denies fever or chills [] Eyes: Denies change in visual acuity, redness, or eye pain [] HENT: Denies nasal congestion or sore throat [] Respiratory: Denies cough or shortness of breath [] Cardiovascular: No additional information not addressed in HPI [] GI: Denies abdominal pain, nausea, vomiting, bloody stools or diarrhea [] : Denies dysuria or hematuria [] Musculoskeletal: Denies back pain or joint pain [] Integument: Denies rash or skin lesions [] Neurologic: Denies headache, focal weakness or sensory changes [] Endocrine: Denies polyuria or polydipsia [] All other systems were reviewed and found to be within normal limits, except as documented in this note. Current Medications Current Medications Current Medications Medications (Trade) Dose Ordered Sig/Kavin Start Time Stop Time Status Last Admin Dose Admin Albuterol/ Ipratropium (Duoneb) 3 ml 1X ONCE 06/06/19 14:15 06/06/19 14:18 DC 06/06/19 14:32 3 ML Dextrose (Dextrose 50%-Water Syringe) 25 gm STK-MED ONCE 06/06/19 17:23 06/06/19 17:23 DC Ketorolac Tromethamine (Toradol 30mg Vial) 30 mg 1X ONCE 06/06/19 16:15 06/06/19 16:16 DC 06/06/19 16:29 30 MG Sodium Chloride 1,000 ml @ 1,000 mls/hr Q1H 06/06/19 14:09 06/06/19 15:08 DC 06/06/19 14:34 1,000 MLS/HR Allergies Allergies Allergies Coded Allergies Type Severity Reaction Last Updated Verified No Known Drug Allergies 03/07/13 No Physical Exam Physical Exam Constitutional: Well developed, well nourished, mild distress, non-toxic appe arance. [] HENT: Normocephalic, atraumatic, bilateral external ears normal, oropharynx moist, no oral exudates, nose normal. [] Eyes: PERRLA, EOMI, conjunctiva normal, no discharge. [] Neck: Normal range of motion, no tenderness, supple, no stridor. [] Cardiovascular:Heart rate regular rhythm, no murmur [] Lungs & Thorax: Right lateral chest wall without contusion or sign of injury, chest wall tenderness without crepitation or subcutaneous emphysema, bilateral breath sounds clear to auscultation [] Abdomen: Bowel sounds normal, soft, no tenderness, no masses, no pulsatile masses. [] Skin: Warm, dry, no erythema, no rash. [] Back: No tenderness, no CVA tenderness. [] Extremities: No tenderness, no cyanosis, no clubbing, ROM intact, no edema. [] Neurologic: Alert and oriented X 3, normal motor function, normal sensory function, no focal deficits noted. [] Psychologic: Affect anxious, judgement normal, mood normal. [] Current Patient Data Vital Signs Vital Signs Date Time Temp Pulse Resp B/P (MAP) Pulse Ox O2 Delivery O2 Flow Rate FiO2 06/06/19 17:23 81 17 149/72 (97) 96 Room Air 06/06/19 13:21 98.1 98.1 Lab Values Laboratory Tests Test 06/06/19 13:37 06/06/19 14:39 06/06/19 14:59 06/06/19 16:27 White Blood Count 11.8 x10^3/uL (4.0-11.0) H Red Blood Count 4.64 x10^6/uL (3.50-5.40) Hemoglobin 13.7 g/dL (12.0-15.5) Hematocrit 41.2 % (36.0-47.0) Mean Corpuscular Volume 89 fL (79-100) Mean Corpuscular Hemoglobin 29 pg (25-35) Mean Corpuscular Hemoglobin Concent 33 g/dL (31-37) Red Cell Distribution Width 15.1 % (11.5-14.5) H Platelet Count 593 x10^3/uL (140-400) H Neutrophils (%) (Auto) 55 % (31-73) Lymphocytes (%) (Auto) 38 % (24-48) Monocytes (%) (Auto) 5 % (0-9) Eosinophils (%) (Auto) 1 % (0-3) Basophils (%) (Auto) 1 % (0-3) Neutrophils # (Auto) 6.4 x10^3/uL (1.8-7.7) Lymphocytes # (Auto) 4.5 x10^3/uL (1.0-4.8) Monocytes # (Auto) 0.6 x10^3/uL (0.0-1.1) Eosinophils # (Auto) 0.1 x10^3/uL (0.0-0.7) Basophils # (Auto) 0.1 x10^3/uL (0.0-0.2) Sodium Level 139 mmol/L (136-145) Potassium Level 4.5 mmol/L (3.5-5.1) Chloride Level 103 mmol/L (98-107) Carbon Dioxide Level 28 mmol/L (21-32) Anion Gap 8 (6-14) Blood Urea Nitrogen 15 mg/dL (7-20) Creatinine 1.0 mg/dL (0.6-1.0) Estimated GFR (Cockcroft-Gault) 60.2 BUN/Creatinine Ratio 15 (6-20) Glucose Level 137 mg/dL (70-99) H Calcium Level 9.2 mg/dL (8.5-10.1) Total Bilirubin 0.3 mg/dL (0.2-1.0) Aspartate Amino Transferase (AST) 16 U/L (15-37) Alanine Aminotransferase (ALT) 17 U/L (14-59) Alkaline Phosphatase 91 U/L (46-116) Creatine Kinase 54 U/L (26-192) Troponin I Quantitative < 0.017 ng/mL (0.000-0.055) Total Protein 7.4 g/dL (6.4-8.2) Albumin 3.7 g/dL (3.4-5.0) Albumin/Globulin Ratio 1.0 (1.0-1.7) POC Urine HCG, Qualitative Hcg negative (Negative) Glucose (Fingerstick) 50 mg/dL (70-99) L 66 mg/dL (70-99) L Test 06/06/19 17:20 06/06/19 17:36 Glucose (Fingerstick) 52 mg/dL (70-99) L 149 mg/dL (70-99) H Laboratory Tests 06/06/19 13:37 Laboratory Tests 06/06/19 13:37 EKG EKG [] Radiology/Procedures Radiology/Procedures [[facility] [address] [place] [address] IMAGING REPORT Signed PATIENT: RENEE MARQUEZACCOUNT: [id number] : 1975 LOCATION: ER AGE: 44 SEX: F EXAM STATUS: REG ER ORD. PHYSICIAN: CORONA MCGILL MD REASON: Cough and chest wall pain PROCEDURE: CHEST PA & LATERAL CHEST PA LATERAL Clinical indications: Cough and chest wall pain. COMPARISON: May 21, 2019. Findings: Hyperinflation is seen consistent with COPD. No acute lung infiltrate or pleural effusion or pulmonary edema or lung mass or pneumothorax is seen. The heart size, pulmonary vasculature, mediastinum and both brenda are unremarkable. There is a displaced fracture of the lateral aspect of the right sixth rib. Impression: New finding of a displaced fracture of the lateral aspect of the right sixth rib. No pneumothorax or pleural effusion or lung consolidation is seen. COPD. Electronically signed by: Taz Joel MD (06/06/2019 2:35 PM) [facility] [place] DICTATED and SIGNED BY: TAZ JOEL MD DATE: 06/06/19 4054 Course & Med Decision Making Course & Med Decision Making Pertinent Labs and Imaging studies reviewed. (See chart for details) Evaluation of patient he is a 44-year-old male patient with history of pneumonia about 2 weeks ago and right lower chest wall pain without history of injury. Chest x-ray showed displaced right rib #6 fracture. Patient had unremarkable labs. Patient did not eat for several hours and had drop of blood sugar from 137 to 50 and had oral intake with blood sugar of 66 and was fed again and blood sugar was 52. Patient was treated with half of amp of D50 with improvement of blood sugar. Patient had history of substance abuse but because of a fracture with plan to give her some narcotic pain medication. Patient was advised to quit smoking and follow-up with her primary care physician for long-term treatment of rib fracture. I've spoken with the patient and/or caregivers. I've explained the patient's condition, diagnosis and treatment plan based on information available to me at this time. I've answered the patient's and/or caregivers questions and addressed any concerns. The patient and/or caregivers have a good understanding the patient's diagnosis, condition and treatment plan as can be expected at this point. Vital signs have been stabilized. The patient's condition is stable for discharge from the emergency department. The patient will pursue further outpatient evaluation with her primary care provider or other designated consulting physician as outlined in the discharge instructions. Patient and/or caregivers are agreeable to this plan of care and follow-up instructions have been explained in detail. The patient and/or caregivers have received these instructions in written format and expressed understanding of these discharge instructions. The patient and her caregivers are aware that if any significant change in condition or worsening of symptoms should prompt him to immediately return to this of the closest emergency department. If an emergent department is not readily available I would encourage him to call 911. Renu Disclaimer Renu Disclaimer This electronic medical record was generated, in whole or in part, using a voice recognition dictation system. Departure Departure Impression: Primary Impression: Closed rib fracture Additional Impressions: Chest wall pain Hypoglycemia Disposition: 01 HOME, SELF-CARE (@1740) Condition: IMPROVED Referrals: NO PCP (PCP) Patient Instructions: Hypoglycemia (Low Blood Sugar), Rib Fracture, Smoking Cessation, Tips For Success Additional Instructions: Drink plenty of liquids Follow-up with your primary care physician in 3-5 days Return to ER if not getting better Thank you for visiting [facility]. We appreciate you trusting us with your care. If any additional problems come up don't hesitate to return to visit us. Please follow up with your primary care provider so they can plan additional care if needed and know about the problem that you had. If symptoms worsen come back to the Emergency Department. Any concerning symptoms that start such as chest pain, shortness of air, weakness or numbness on one side of the body, running high fevers or any other concerning symptoms return to the ER. Scripts Hydrocodone/Apap 5-325 (NORCO 5-325 TABLET) 1 Each Tablet 1 TAB PO PRN Q6HRS PRN for PAIN, #14 TAB 0 Refills Prov: CORONA MCGILL MD 06/06/19 Problem Qualifiers Primary Impression: Closed rib fracture Encounter type: sequela Rib fracture type: single rib Laterality: right Qualified Codes: S22.31XS - Fracture of one rib, right side, sequela CORONA MCGILL MD Jun 06, 2019 15:35
[2019-06-06] MEDS ORDERED: KETOROLAC 30 MG/ML VIAL. IVP ONE (16:15)
[2019-06-06] MEDS ORDERED: HYDR-3164 PO (16:55)
[2019-06-06 17:23] VITALS: BP 149/72
[2019-06-06] MEDS ORDERED: DEXTROSE 50% 25 GM / 50ML DISP.SYRIN. IV ONE ×2 (17:23→17:30)
== END 2019-06-06 17:38 | disposition home or self-care (01) ==
LOC: ER 10:40
DX: S22.31XA Fracture of one rib, right side, initial encounter for closed fracture (principal); R07.89 Other chest pain; E11.649 Type 2 diabetes mellitus with hypoglycemia without coma; I10 Essential (primary) hypertension; E11.21 Type 2 diabetes mellitus with diabetic nephropathy; F17.200 Nicotine dependence, unspecified, uncomplicated; Z98.890 Other specified postprocedural states; X58.XXXA Exposure to other specified factors, initial encounter; Y93.89 Activity, other specified; Y92.89 Other specified places as the place of occurrence of the external cause; Y99.8 Other external cause status
CPT/HCPCS: 36415; 71046; 80053; 81025; 82550; 82962; 84484; 85025; 94640; 96361; 96374; 96375; 99285; J1885; J7030; J7042

== ENCOUNTER 2019-09-03 08:53 | Emergency (ER) | payer SELFPAY ==
[~2019-09-03] VITALS: Ht 160 cm; Wt 68.1 kg
[2019-09-03 09:25] LABS: BILIRUBIN,URINE NEGATIVE (NEG); CLARITY,URINE CLEAR; COLOR,URINE YELLOW; NITRITE,URINE NEGATIVE (NEG); PH,URINE 5.5 (<5.0-8.0); PROTEIN,URINE 100 mg/dL (NEG-TRACE); UROBILINOGEN,URINE 0.2 mg/dL (0.2 mg/dL)
[2019-09-03 09:32] LABS: SQUAMOUS EPITHELIAL CELL,UR MOD /LPF
[2019-09-03 09:33] LABS: RBC,URINE 0 /HPF (0-2)
[2019-09-03 09:34] LABS: BACTERIA,URINE 0 /HPF (0-FEW)
--- NOTE | 2019-09-03 10:13 | RAD ---
LUMBAR SPINE 2-3V 09/03/2019 9:38 AM Indication: Lower back pain COMPARISON: None available TECHNIQUE: 3 views of the lumbar spine are provided. Findings: Alignment of the lumbar spine is normal. Vertebral body heights are maintained. No acute fracture is identified. Disc heights are maintained. No significant endplate degenerative changes are identified. There is no significant facet arthropathy. No significant osseous neuroforaminal stenosis or spinal canal stenosis. Nonobstructive bowel gas pattern. Visualized portions of the sacrum appear intact. 4.5 mm calcific density is identified in the left hemiabdomen, possibly within the inferior pole the left kidney. Impression: No acute fracture or malalignment of the lumbar spine. 4.5 mm calcific density projects over the left hemiabdomen, possibly within the bowel or inferior pole the left kidney. Correlate with site of pain. If symptoms persist, further evaluation with CT abdomen pelvis without contrast is recommended. Electronically signed by: Sana Gonzales MD (09/03/2019 10:11 AM) [id number]
--- NOTE | 2019-09-03 10:42 | PHYS DOC ---
Past Medical History Past Medical History: Diabetes-Type II, Hypertension, Pneumonia, Other Additional Past Medical Histor: neuropathy; osteomyelitis, dental caries, substance abuse Past Surgical History: No Surgical History Additional Past Surgical Histo: left ankle I&D Smoking Status: Current Every Day Smoker Alcohol Use: None Drug Use: None General Adult EDM: Chief Complaint: RIGHT SIDE ABDOMINAL PAIN HPI: HPI: Patient is a 44 year old female presented to ER today for evaluation of right abdominal pain, right flank pain. Patient also complained of frequent urination but no pain. Patient denies any nausea or vomiting, no fever, no cough. Patient denies any chest pain. Patient feels like when she walks she has more pain. Patient has history of gallbladder problem in the past. Review of Systems: Review of Systems: Constitutional: Denies fever or chills. [] Eyes: Denies change in visual acuity. [] HENT: Denies nasal congestion or sore throat. [] Respiratory: Denies cough or shortness of breath. [] Cardiovascular: Denies chest pain or edema. [] GI: Positive for right side abdominal pain. NO nausea, vomiting, bloody stools or diarrhea. [] : Denies dysuria. [] Musculoskeletal: Denies back pain or joint pain. [] Integument: Denies rash. [] Neurologic: Denies headache, focal weakness or sensory changes. [] Endocrine: Denies polyuria or polydipsia. [] Lymphatic: Denies swollen glands. [] Psychiatric: Denies depression or anxiety. [] Heart Score: Risk Factors: Risk Factors: DM, Current or recent (<one month) smoker, HTN, HLP, family his tory of CAD, obesity. Risk Scores: Score 0 - 3: 2.5% MACE over next 6 weeks - Discharge Home Score 4 - 6: 20.3% MACE over next 6 weeks - Admit for Clinical Observation Score 7 - 10: 72.7% MACE over next 6 weeks - Early Invasive Strategies Allergies: Allergies: Allergies Coded Allergies Type Severity Reaction Last Updated Verified No Known Drug Allergies 03/07/13 No Physical Exam: PE: Constitutional: Well developed, well nourished, no acute distress, non-toxic appearance. [] HENT: Normocephalic, atraumatic, bilateral external ears normal, oropharynx moist, no oral exudates, nose normal. [] Eyes: PERRLA, EOMI, conjunctiva normal, no discharge. [] Neck: Normal range of motion, no tenderness, supple, no stridor. [] Cardiovascular:Heart rate regular rhythm, no murmur [] Lungs & Thorax: Bilateral breath sounds clear to auscultation [] Abdomen: Bowel sounds normal, soft, RUQ, RLQ tenderness to palpation, no masses, no pulsatile masses. [] Skin: Warm, dry, no erythema, no rash. [] Back: No tenderness, no CVA tenderness. [] Extremities: No tenderness, no cyanosis, no clubbing, ROM intact, no edema. [] Neurologic: Alert and oriented X 3, normal motor function, normal sensory function, no focal deficits noted. [] Psychologic: Affect normal, judgement normal, mood normal. [] Current Patient Data: Labs: Laboratory Tests Test 09/03/19 08:50 Urine Collection Type Void Urine Color Yellow Urine Clarity Clear Urine pH 5.5 (<5.0-8.0) Urine Specific [place] 1.025 (1.000-1.030) Urine Protein 100 mg/dL (NEG-TRACE) Urine Glucose (UA) >=1000 mg/dL (NEG) Urine Ketones (Stick) Negative mg/dL (NEG) Urine Blood Negative (NEG) Urine Nitrite Negative (NEG) Urine Bilirubin Negative (NEG) Urine Urobilinogen Dipstick 0.2 mg/dL (0.2 mg/dL) Urine Leukocyte Esterase Negative (NEG) Urine RBC 0 /HPF (0-2) Urine WBC 5-10 /HPF (0-4) Urine Squamous Epithelial Cells Mod /LPF Urine Bacteria 0 /HPF (0-FEW) Vital Signs: Vital Signs Date Time Temp Pulse Resp B/P (MAP) Pulse Ox O2 Delivery O2 Flow Rate FiO2 09/03/19 08:53 98.5 106 20 161/77 (105) 94 Room Air 98.5 EKG: EKG: [] Radiology/Procedures: Radiology/Procedures: [][facility] [address] [place], [place] [id number] IMAGING REPORT Signed PATIENT: RENEE MARQUEZACCOUNT: [id number] : 1975 LOCATION: ER AGE: 44 SEX: F EXAM STATUS: REG ER ORD. PHYSICIAN: SOUMYA HUGGINS DO REASON: LOWER BACK PAIN PROCEDURE: LUMBAR SPINE 2-3V LUMBAR SPINE 2-3V 09/03/2019 9:38 AM Indication: Lower back pain COMPARISON: None available TECHNIQUE: 3 views of the lumbar spine are provided. Findings: Alignment of the lumbar spine is normal. Vertebral body heights are maintained. No acute fracture is identified. Disc heights are maintained. No significant endplate degenerative changes are identified. There is no significant facet arthropathy. No significant osseous neuroforaminal stenosis or spinal canal stenosis. Nonobstructive bowel gas pattern. Visualized portions of the sacrum appear intact. 4.5 mm calcific density is identified in the left hemiabdomen, possibly within the inferior pole the left kidney. Impression: No acute fracture or malalignment of the lumbar spine. 4.5 mm calcific density projects over the left hemiabdomen, possibly within the bowel or inferior pole the left kidney. Correlate with site of pain. If symptoms persist, further evaluation with CT abdomen pelvis without contrast is recommended. Electronically signed by: Truman Yeboah MD (09/03/2019 10:11 AM) [id number] DICTATED and SIGNED BY: TRUMAN YEBOAH MD DATE: 09/03/19 [facility] [address] [place], [place] [id number] IMAGING REPORT Signed PATIENT: RENEE MARQUEZACCOUNT: [id number] : 1975 LOCATION: ER AGE: 44 SEX: F EXAM STATUS: REG ER ORD. PHYSICIAN: SOUMYA HUGGINS DO REASON: right side abdominal pain PROCEDURE: CT ABD PELV W/ IV CONTRST ONLY Study: CT abdomen/pelvis with intravenous contrast Indication: Right-sided abdominal pain. Comparison: 10/25/2018 Technique: Helical CT imaging performed of the abdomen and pelvis after the intravenous administration of 60 cc Omnipaque 300 contrast. Sagittal and coronal reformats were obtained. One or more of the following individualized dose reduction techniques were utilized for this examination: 1. Automated exposure control 2. Adjustment of the mA and/or kV according to patient size 3. Use of iterative reconstruction technique. Findings: Chest: Small hiatal hernia. Unchanged circumferential thickening of the distal esophagus. Liver: Unchanged size with the lower margin of the right hepatic lobe extending to the level of the iliac crest. Gallbladder/Biliary Tree: Unchanged small gallstones. No CT findings to suggest acute cholecystitis. Pancreas: Unchanged. Spleen: Within normal limits. Adrenal Glands: Unchanged. Kidneys/Ureters/Bladder: No acute abnormality. 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 Reproductive Organs: Within normal limits for patient age. Colon: Within normal limits. Appendix: No inflammatory changes at its expected location to suggest appendicitis. Small Bowel: Nonobstructed. Stomach: Not well evaluated due to underdistention. Vasculature: Multifocal calcified and noncalcified atheromatous plaque. Nonaneurysmal aorta. Patent portal veins and superior mesenteric vein. Lymph Nodes: Within normal limits for size. Several inguinal lymph nodes bilaterally measure less than a centimeter short axis. Peritoneum and Body Wall: Soft tissue masslike structure within the subcutaneous fat at the left lower quadrant anteriorly with some small areas of mineralization was present on the comparison. The size of this finding has not significantly changed. Similar mild skin thickening at the ventral lower abdomen and a few areas of faint subcutaneous fat stranding. No free fluid or air. Bones: No acute or aggressive osseous process Miscellaneous: None. Impression: 1. No acute abnormality seen throughout the abdomen or pelvis. 2. Redemonstrated and unchanged circumferential thickening of the distal esophageal wall in the setting of a small hiatal hernia. Recommend correlation for a history of reflux. 3. Small gallstones without CT findings of cholecystitis. 4. No significant interval change in size of a soft tissue mass-like structure at the ventral left lower quadrant subcutaneous tissues. As previously mentioned, this could be posttraumatic in etiology but recommend correlation with patient history and visual inspection. 5. Additional chronic findings as above. Electronically signed by: ALISHA CHRISTIANSON MD (09/03/2019 12:53 PM) [id number] DICTATED and SIGNED BY: ALISHA CHRISTIANSON MD DATE: 09/03/19 1252 Course & Med Decision Making: Course & Med Decision Making Pertinent Labs and Imaging studies reviewed. (See chart for details) Patient is a 44-year-old female who was evaluated in the ER today due to right abdominal pain, CT scan of the abdomen pelvic show small gallstones without evidence of infection. Patient was given Toradol in the ED, she feels much better, she would like to go home. Patient will need to follow-up with a general surgeon for outpatient evaluation. Patient is amenable to plan of care. Renu Disclaimer: Renu Disclaimer: This electronic medical record was generated, in whole or in part, using a voice recognition dictation system. Departure Departure Impression: Primary Impression: Cholelithiasis Disposition: HOME, SELF-CARE Condition: STABLE Referrals: NO PCP (PCP) YOLANDA HICKMAN MD PLEASE CALL THIS GENERAL SURGEON FOR OUTPATIENT EVALUATION OF YOUR GALLBLADDER PROBLEM Patient Instructions: Cholelithiasis Additional Instructions: Thank you for visiting our Emergency Department. We appreciate you trusting us with your care. If any additional problems come up don't hesitate to return to visit us. Please follow up with your primary care provider so they can plan additional care if needed and know about the problem that you had. If symptoms worsen come back to the Emergency Department. Any concerning symptoms that start such as chest pain, shortness of air, weakness or numbness on one side of the body, running high fevers or any other concerning symptoms return to the ER. Scripts Hydrocodone/Apap 5-325 (NORCO 5-325 TABLET) 1 Each Tablet 1 TAB PO PRN Q6HRS PRN for PAIN, #12 TAB 0 Refills Prov: SOUMYA HUGGINS DO 09/03/19 SOUMYA HUGGINS DO Sep 03, 2019 10:42
[2019-09-03] MEDS ORDERED: KETOROLAC 30 MG/ML VIAL. IVP ONE (11:15)
[2019-09-03 11:18] LABS: BASO # 0.1 x10^3/uL (0.0-0.2); BASO % 1 % (0-3); EOS # 0.4 x10^3/uL (0.0-0.7); EOS % 3 % (0-3); HEMATOCRIT 41.7 % (36.0-47.0); HEMOGLOBIN 13.8 g/dL (12.0-15.5); LYMPH # 3.4 x10^3/uL (1.0-4.8); LYMPH % 26 % (24-48); MEAN CORPUSCULAR HEMOGLOBIN 30 pg (25-35); MEAN CORPUSCULAR HGB CONC 33 g/dL (31-37); MEAN CORPUSCULAR VOLUME 90 fL (79-100); MONO # 0.8 x10^3/uL (0.0-1.1); MONO % 6 % (0-9); NEUT # 8.5 x10^3/uL (1.8-7.7); NEUT % 64 % (31-73); PLATELET COUNT 478 x10^3/uL (140-400); RED BLOOD COUNT 4.63 x10^6/uL (3.50-5.40); RED CELL DISTRIBUTION WIDTH 14.5 % (11.5-14.5); WHITE BLOOD COUNT 13.3 x10^3/uL (4.0-11.0)
[2019-09-03 11:25] LABS: CALCIUM 8.5 mg/dL (8.5-10.1); CREATININE 1.2 mg/dL (0.6-1.0); GFR 48.8; POTASSIUM 4.8 mmol/L (3.5-5.1)
[2019-09-03] MEDS ORDERED: IV NORMAL SALINE 1000ML BAG 1,000 ML IV ONE (11:30)
[2019-09-03 11:31] LABS: ALBUMIN 3.5 g/dL (3.4-5.0); TOTAL BILIRUBIN 0.1 mg/dL (0.2-1.0); TOTAL PROTEIN 7.1 g/dL (6.4-8.2)
[2019-09-03] MEDS ORDERED: IOHEXOL 300 MG/ML 100ML VIAL. IV ONE (11:45)
[2019-09-03] MEDS ORDERED: CONTRAST GIVEN. MC PRN (12:00)
[2019-09-03 12:30] VITALS: BP 172/87
--- NOTE | 2019-09-03 12:56 | RAD ---
Study: CT abdomen/pelvis with intravenous contrast Indication: Right-sided abdominal pain. Comparison: 10/25/2018 Technique: Helical CT imaging performed of the abdomen and pelvis after the intravenous administration of 60 cc Omnipaque 300 contrast. Sagittal and coronal reformats were obtained. One or more of the following individualized dose reduction techniques were utilized for this examination: 1. Automated exposure control 2. Adjustment of the mA and/or kV according to patient size 3. Use of iterative reconstruction technique. Findings: Chest: Small hiatal hernia. Unchanged circumferential thickening of the distal esophagus. Liver: Unchanged size with the lower margin of the right hepatic lobe extending to the level of the iliac crest. Gallbladder/Biliary Tree: Unchanged small gallstones. No CT findings to suggest acute cholecystitis. Pancreas: Unchanged. Spleen: Within normal limits. Adrenal Glands: Unchanged. Kidneys/Ureters/Bladder: No acute abnormality. 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 Reproductive Organs: Within normal limits for patient age. Colon: Within normal limits. Appendix: No inflammatory changes at its expected location to suggest appendicitis. Small Bowel: Nonobstructed. Stomach: Not well evaluated due to underdistention. Vasculature: Multifocal calcified and noncalcified atheromatous plaque. Nonaneurysmal aorta. Patent portal veins and superior mesenteric vein. Lymph Nodes: Within normal limits for size. Several inguinal lymph nodes bilaterally measure less than a centimeter short axis. Peritoneum and Body Wall: Soft tissue masslike structure within the subcutaneous fat at the left lower quadrant anteriorly with some small areas of mineralization was present on the comparison. The size of this finding has not significantly changed. Similar mild skin thickening at the ventral lower abdomen and a few areas of faint subcutaneous fat stranding. No free fluid or air. Bones: No acute or aggressive osseous process Miscellaneous: None. Impression: 1. No acute abnormality seen throughout the abdomen or pelvis. 2. Redemonstrated and unchanged circumferential thickening of the distal esophageal wall in the setting of a small hiatal hernia. Recommend correlation for a history of reflux. 3. Small gallstones without CT findings of cholecystitis. 4. No significant interval change in size of a soft tissue mass-like structure at the ventral left lower quadrant subcutaneous tissues. As previously mentioned, this could be posttraumatic in etiology but recommend correlation with patient history and visual inspection. 5. Additional chronic findings as above. Electronically signed by: ALISHA CHRISTIANSON MD (09/03/2019 12:53 PM) [id number]
[2019-09-03] MEDS ORDERED: HYDR-3164 PO (13:25)
== END 2019-09-03 13:35 | disposition home or self-care (01) ==
LOC: ER 08:53
DX: K80.20 Calculus of gallbladder without cholecystitis without obstruction (principal); M54.5 Low back pain; E11.40 Type 2 diabetes mellitus with diabetic neuropathy, unspecified; I10 Essential (primary) hypertension; F17.200 Nicotine dependence, unspecified, uncomplicated
CPT/HCPCS: 36415; 72100; 74177; 80053; 81001; 82962; 83690; 85025; 87086; 96374; 99285; J1885; J7030; Q9967; 96361

== ENCOUNTER 2019-10-28 20:23 | Emergency (ER) | payer SELFPAY ==
[~2019-10-28] VITALS: Ht 157.5 cm; Wt 65.9 kg
[2019-10-28 20:54] VITALS: BP 171/93
[2019-10-28] MEDS ORDERED: CIPR10DR EACH EAR (21:24)
[2019-10-28] MEDS ORDERED: AMOX500C PO (21:24)
--- NOTE | 2019-10-28 21:24 | PHYS DOC ---
Past Medical History Past Medical History: Diabetes-Type II, Hypertension, Pneumonia, Other Additional Past Medical Histor: neuropathy; osteomyelitis, dental caries, substance abuse Past Surgical History: No Surgical History Additional Past Surgical Histo: left ankle I&D Smoking Status: Current Every Day Smoker Alcohol Use: None Drug Use: None General Adult EDM: Chief Complaint: HEADACHE HPI: HPI: The history was obtained from the patient. Patient is a 44-year-old female with no reported PMH who presents with a chief complaint of dental pain and bilateral ear discomfort. Patient states she has had progressive dental pain over the past week. She states that she has multiple missing teeth that become extremely painful. She denies any drainage into the mouth. She is able to eat and drink. She denies any pain with opening her mouth. She denies any changes to her voice or difficulty swallowing. She denies any fevers or recent dental procedures. She states she has been trying ibuprofen with minimal relief. She has not been able to get into see her primary care physician yet. She has not followed with a dentist closely. She also notes bilateral ear itching. She states that her hearing has slowly decreased over the past several months to year. She states she is had bilateral ear itching over the past year. Denies any history of diabetes. She notes a mild headache that seems to start on her left tooth and radiate to her head. She denies any vomiting or neck pain. States the pain is throbbing in nature. Patient denies acute onset of headache reaching maximal intensity in under one hour. This is neither the worst headache that Patient has ever experienced, nor was the onset timed with exertional activity or trauma. Patient has not experienced any fever, unusual neck pain or stiffness, syncope, or near syncope. Patient denies numbness, tingling, or weakness of the extremities. Patient a lso denies personal history of intracranial hemorrhage (including SAH), aneurysm, or AV malformation. Review of Systems: Review of Systems: Constitutional: Denies fever or chills. [] Eyes: Denies change in visual acuity. [] HENT: Dental pain, ear pain bilaterally Respiratory: Denies cough or shortness of breath. [] Cardiovascular: Denies chest pain or edema. [] GI: Denies abdominal pain, nausea, vomiting, bloody stools or diarrhea. [] : Denies dysuria. [] Musculoskeletal: Denies back pain or joint pain. [] Integument: Denies rash. [] Neurologic: Denies headache, focal weakness or sensory changes. [] Endocrine: Denies polyuria or polydipsia. [] Lymphatic: Denies swollen glands. [] Psychiatric: Denies depression or anxiety. [] Heart Score: Risk Factors: Risk Factors: DM, Current or recent (<one month) smoker, HTN, HLP, family history of CAD, obesity. Risk Scores: Score 0 - 3: 2.5% MACE over next 6 weeks - Discharge Home Score 4 - 6: 20.3% MACE over next 6 weeks - Admit for Clinical Observation Score 7 - 10: 72.7% MACE over next 6 weeks - Early Invasive Strategies Allergies: Allergies: Allergies Coded Allergies Type Severity Reaction Last Updated Verified No Known Drug Allergies 03/07/13 No Physical Exam: PE: Constitutional: Well developed, well nourished, no acute distress, non-toxic appearance. [] HENT: Normocephalic, atraumatic, bilateral external ears normal, oropharynx moist, no oral exudates, nose normal. [] Eyes: PERRLA, EOMI, conjunctiva normal, no discharge. [] Neck: Normal range of motion, no tenderness, supple, no stridor. [] Cardiovascular:Heart rate regular rhythm, no murmur [] Lungs & Thorax: Bilateral breath sounds clear to auscultation [] Abdomen: Bowel sounds normal, soft, no tenderness, no masses, no pulsatile masses. [] Skin: Warm, dry, no erythema, no rash. [] Back: No tenderness, no CVA tenderness. [] Extremities: No tenderness, no cyanosis, no clubbing, ROM intact, no edema. [] Neurologic: Alert and oriented X 3, normal motor function, normal sensory function, no focal deficits noted. [] Psychologic: Affect normal, judgement normal, mood normal. [] EKG: EKG: [] Radiology/Procedures: Radiology/Procedures: [] Course & Med Decision Making: Course & Med Decision Making Pertinent Labs and Imaging studies reviewed. (See chart for details) Patient is a nontoxic-appearing 44-year-old female who presents with chief complaint of dental pain and bilateral ear pain. Dental exam notable for multiple dental caries. No obvious apical abscess or drainable fluid collection appreciated. Patient denies any trismus or changes in her phonation. Tonsillar exam unremarkable. Low suspicion for deep space infection. On ear exam patient does have swollen external ears bilaterally. Narrow middle ear canal. Purulent drainage noted in the middle ear canals bilaterally. No mastoid tenderness. No mariana tenderness with tragus manipulation. Patient may be experiencing a chronic form of otitis externa. I do feel is reasonable to start oral antibiotics for her dental discomfort. Furthermore, bilateral ear westley will be placed and otic drops will be administered. She will be given referral to a primary care physician who can refer her to an ENT specialist. Her pain was well controlled emergency department. She is agreeable to discharge at this time. Return precautions discussed and understood. Stable for discharge home. Dragon Disclaimer: Renu Disclaimer: This electronic medical record was generated, in whole or in part, using a voice recognition dictation system. Departure Departure Disposition: 01 HOME, SELF-CARE Condition: GOOD Referrals: NO PCP (PCP) Patient Instructions: Otitis Media, Adult Additional Instructions: [facility] [address] [place] [address] [facility] [address] [place] [address] [facility] [address] [facility] [place] [address] [facility] [address] [place] [address] [facility] [address] [place] [address] [facility] [address] [place] [address] [facility] [address] [place] [address] [facility] [address] [place] [address] [facility] [address] [place] [address] [facility] [address] [place] [address] Scripts Ciprofloxacin/Hydrocortisone (CIPRO HC OTIC SUSPENSION) 10 Ml Drops.susp 3 DROP EACH EAR BID for 10 Days, #10 ML Prov: ALY VERA DO 10/28/19 Amoxicillin (AMOXICILLIN) 500 Mg Capsule 500 MG PO BID for 10 Days, #20 CAP 0 Refills Prov: ALY VERA DO 10/28/19 Justicifation of Admission Dx: Justifications for Admission: Justification of Admission Dx: N/A ALY VERA DO Oct 28, 2019 21:24
[2019-10-28] MEDS ORDERED: AMOXICILLIN 250 MG CAPSULE. PO ONE (21:30)
[2019-10-28] MEDS ORDERED: CIPROFLOXACIN 0.3% OPHTH SOLUTION 5ML BOTTLE. AU ONE (21:30)
[2019-10-28] MEDS ORDERED: HYDROcodone/APAP 5/325MG 1 TAB TABLET PO ONE (21:30)
== END 2019-10-28 21:51 | disposition home or self-care (01) ==
LOC: ER 20:23
DX: K08.89 Other specified disorders of teeth and supporting structures (principal); H92.03 Otalgia, bilateral; K02.9 Dental caries, unspecified; E11.40 Type 2 diabetes mellitus with diabetic neuropathy, unspecified; I10 Essential (primary) hypertension; F17.200 Nicotine dependence, unspecified, uncomplicated
CPT/HCPCS: 99284

== ENCOUNTER 2019-12-20 20:46 | Emergency (ER) | payer SELFPAY ==
[~2019-12-20] VITALS: Ht 160 cm; Wt 64.0 kg
[~2019-12-20 20:46] MED LIST changes: +CIPR10DR EACH EAR
[2019-12-20 20:55] VITALS: BP 173/62
[2019-12-20] MEDS ORDERED: CEFD300C PO (23:39)
--- NOTE | 2019-12-20 23:39 | PHYS DOC ---
Past Medical History Past Medical History: Diabetes-Type II, Hypertension, Pneumonia, Other Additional Past Medical Histor: neuropathy; osteomyelitis, dental caries, substance abuse Past Surgical History: No Surgical History Additional Past Surgical Histo: left ankle I&D Smoking Status: Current Every Day Smoker Alcohol Use: None Drug Use: None General Adult EDM: Chief Complaint: FOREIGNBODY EAR HPI: HPI: Patient is a 44-year-old female who presents to the emergency room with ongoing issues of otitis externa. She has an appointment with ENT on January 15. She used a Q-tip to try to clean out her ear and the Q-tip came off in the ear. That is what brings her to the emergency room this evening. She has not been using her eardrops as they burn and she does not feel like she can fully get them in her ears she denies hearing loss. She is not having any headache or neuro changes. Review of Systems: Review of Systems: General: Denies fever, chills, sweats, fatigue Eyes: Denies drainage, blurred vision, eye redness HENT: Denies rhinorrhea, sore throat. Reports ear pain, drainage Respiratory: Denies cough, shortness of breath, wheezing Cardiac: Denies edema, palpitations, chest pain GI: Denies abdominal pain, Nausea, vomiting MSK: Denies back pain, neck pain Skin: Denies rash, jaundice Neuro: Denies headache, dizziness Psychiatric: Denies SI/HI Heart Score: Risk Factors: Risk Factors: DM, Current or recent (<one month) smoker, HTN, HLP, family history of CAD, obesity. Risk Scores: Score 0 - 3: 2.5% MACE over next 6 weeks - Discharge Home Score 4 - 6: 20.3% MACE over next 6 weeks - Admit for Clinical Observation Score 7 - 10: 72.7% MACE over next 6 weeks - Early Invasive Strategies Allergies: Allergies: Allergies Coded Allergies Type Severity Reaction Last Updated Verified No Known Drug Allergies 03/07/13 No Physical Exam: PE: General: Awake, alert, NAD. Well Nourished, well hydrated. Cooperative HEENT: Atraumatic, EOMI, PERRL, airway patent, moist oral mucosa, otitis externa of bilateral ears with drainage. Q-tip in the visible in right ear Neck: Supple, trachea midline MSK: No obvious deformities Skin: Warm, dry, intact Neuro: A&O x3, speech NL, sensory and motor grossly intact, no focal deficits Psych: Normal affect, normal mood, not suicidal or homicidal Current Patient Data: Vital Signs: Vital Signs Date Time Temp Pulse Resp B/P (MAP) Pulse Ox O2 Delivery O2 Flow Rate FiO2 12/20/19 20:55 98.5 108 18 173/62 (99) 98 Room Air 98.5 EKG: EKG: [] Radiology/Procedures: Radiology/Procedures: [] Course & Med Decision Making: Course & Med Decision Making Pertinent Labs and Imaging studies reviewed. (See chart for details) Patient is 44-year-old female presents the emergency room complaining of foreign body in her right ear. This was removed without difficulty. Patient does have pretty significant bilateral otitis externa. We will place her on oral antibiotics. She does not have any neurologic symptoms at this time. She does have ENT follow-up. Patient's test results and vitals while in the ED were fully reviewed and discussed with the patient. Patient is stable and at this time does not need admission to the hospital. We have discussed strict return precautions and the importance of following up with their Primary Care Physician. Patient stated understanding and was given an opportunity to ask any questions. Patient is in agreement with plan. Dragon Disclaimer: Dragon Disclaimer: This electronic medical record was generated, in whole or in part, using a voice recognition dictation system. Departure Departure Impression: Primary Impression: Otitis externa Disposition: 01 HOME, SELF-CARE Condition: STABLE Referrals: NO PCP (PCP) Patient Instructions: Otitis Externa, [id number] Scripts Cefdinir (CEFDINIR) 300 Mg Capsule 1 CAP PO BID for 10 Days, #20 CAP Prov: ROX VOSS MD 12/20/19 Justicifation of Admission Dx: Justifications for Admission: Justification of Admission Dx: N/A ROX VOSS MD Dec 20, 2019 23:39
== END 2019-12-20 23:47 | disposition home or self-care (01) ==
LOC: ER 20:46
DX: T16.1XXA Foreign body in right ear, initial encounter (principal); H60.93 Unspecified otitis externa, bilateral; I10 Essential (primary) hypertension; E11.40 Type 2 diabetes mellitus with diabetic neuropathy, unspecified; F17.200 Nicotine dependence, unspecified, uncomplicated; E11.69 Type 2 diabetes mellitus with other specified complication; M86.9 Osteomyelitis, unspecified; X58.XXXA Exposure to other specified factors, initial encounter; Y93.89 Activity, other specified; Y92.89 Other specified places as the place of occurrence of the external cause; Y99.8 Other external cause status
CPT/HCPCS: 99284

== ENCOUNTER 2020-03-19 12:26 | Emergency (ER) | payer SELFPAY ==
[~2020-03-19] VITALS: Ht 157.5 cm; Wt 61.0 kg
[~2020-03-19 12:26] MED LIST changes: +CEFD300C PO; -CLIN300C8 PO; +CLIN300C9 PO; +LEVO750T5 PO
[2020-03-19 13:04] VITALS: BP 141/80
[2020-03-19] MEDS ORDERED: MUPIROCIN 2 % TOPICAL CREAM 30GM TUBE. TP STA (14:03)
--- NOTE | 2020-03-19 15:06 | PHYS DOC ---
Past Medical History Past Medical History: Diabetes-Type II, Hypertension, Pneumonia, Other Additional Past Medical Histor: neuropathy; osteomyelitis, dental caries, substance abuse (XAVI ESPINAL APRN) Past Surgical History: No Surgical History Additional Past Surgical Histo: left ankle I&D (XAVI ESPINAL APRN) Smoking Status: Current Every Day Smoker Alcohol Use: None Drug Use: None (XAVI ESPINAL APRN) General Adult EDM: Chief Complaint: EYE PROBLEMS HPI: HPI: Patient is a 45 year old female who presents complaining of left upper eyebrow swelling that she noted 2 days ago. She states yesterday she was able to squeeze the area and drained some yellow material. She states this morning she woke up and the exterior left upper eye lid was swollen. Denies any vision loss. She is currently on levofloxacin p.o. for ear infection. (XAVI ESPINAL APRN) Review of Systems: Review of Systems: Constitutional: Denies fever or chills. [] Eyes: Reports left upper eyelid swelling, left upper eyebrow infection. Denies change in visual acuity. [] Musculoskeletal: Denies back pain or joint pain. [] Integument: Denies rash. [] Neurologic: Denies headache, focal weakness or sensory changes. [] Psychiatric: Denies depression or anxiety. [] (XAVI ESPINAL APRN) Heart Score: Risk Factors: Risk Factors: DM, Current or recent (<one month) smoker, HTN, HLP, family history of CAD, obesity. Risk Scores: Score 0 - 3: 2.5% MACE over next 6 weeks - Discharge Home Score 4 - 6: 20.3% MACE over next 6 weeks - Admit for Clinical Observation Score 7 - 10: 72.7% MACE over next 6 weeks - Early Invasive Strategies (XAVI ESPINAL APRN) Current Medications: Current Medications Medications (Trade) Dose Ordered Sig/Kavin Start Time Stop Time Status Last Admin Dose Admin Mupirocin (Bactroban) 1 chidi 1X STAT 03/19/20 14:03 03/19/20 14:07 DC 03/19/20 14:03 1 CHIDI (XAVI ESPINAL APRN) Allergies: Allergies: Allergies Coded Allergies Type Severity Reaction Last Updated Verified No Known Drug Allergies 03/07/13 No (XAVI ESPINAL APRN) Physical Exam: PE: Constitutional: Well developed, well nourished, no acute distress, non-toxic appearance. [] HENT: Normocephalic, atraumatic, bilateral external ears normal, oropharynx moist, no oral exudates, nose normal. [] Bilateral external ear canals with fungal infection that is chronic. Eyes: PERRLA, EOMI, left conjunctiva is slightly erythematous, left upper eyebrow with a small pimple-like swollen area with no drainage. There is a scab over the center of this region. There is trace erythema on the left upper eyelid. Skin: Warm, dry, no erythema, no rash. [] Back: No tenderness, no CVA tenderness. [] Extremities: No tenderness, no cyanosis, no clubbing, ROM intact, no edema. [] Neurologic: Alert and oriented X 3, normal motor function, normal sensory function, no focal deficits noted. [] Psychologic: Affect normal, judgement normal, mood normal. [] (XAVI ESPINAL APRN) Current Patient Data: Vital Signs: Vital Signs Date Time Temp Pulse Resp B/P (MAP) Pulse Ox O2 Delivery O2 Flow Rate FiO2 03/19/20 13:04 98.6 87 18 141/80 (100) 95 Room Air 98.6 (XAVI ESPINAL APRN) EKG: EKG: [] (XAVI ESPINAL APRN) Radiology/Procedures: Radiology/Procedures: [] (XAVI ESPINAL APRN) Course & Med Decision Making: Course & Med Decision Making Pertinent Labs and Imaging studies reviewed. (See chart for details) This is a 45-year-old female patient who presents to the ED today with what appears to be an infected pimple on the left upper eyebrow. She already drained the region. Bactroban ointment was provided. She is already on Levaquin for ear infection. Tetanus up-to-date. Discharge to home. Provided return precautions. (XAVI ESPINAL APRN) Dragon Disclaimer: Dragon Disclaimer: This electronic medical record was generated, in whole or in part, using a voice recognition dictation system. (XAVI ESPINAL APRN) Departure Departure Impression: Primary Impression: Abscess, eyebrow Disposition: 01 DC HOME SELF CARE/HOMELESS Condition: STABLE Referrals: NO PCP (PCP) follow up with your doctor in one week Patient Instructions: Abscess Additional Instructions: You were evaluated in the emergency room with infection to the left upper eyebrow. Use the prescribed Bactroban ointment 3 times a day to the region. Apply warm compresses to that region. Follow-up with your doctor in 1 to 2 weeks. Complete your current oral antibiotics. Attending Signature Attending Signature I have reviewed the PA/TEST AND RESEARCH REACTOR OPERATOR's note and plan of care. I was available for consultation as needed during the patient's visit in the emergency department. I agree with the clinical impression, plan, and disposition. (ASIYA CARRIZALES DO) XAVI ESPINAL APRN Mar 19, 2020 15:06 ASIYA CARRIZALES DO Mar 20, 2020 06:58
== END 2020-03-19 15:26 | disposition home or self-care (01) ==
LOC: ER 12:26
DX: H44.002 Unspecified purulent endophthalmitis, left eye (principal); R60.0 Localized edema; L53.9 Erythematous condition, unspecified; I10 Essential (primary) hypertension; E11.40 Type 2 diabetes mellitus with diabetic neuropathy, unspecified; F17.200 Nicotine dependence, unspecified, uncomplicated; F19.10 Other psychoactive substance abuse, uncomplicated; Z98.890 Other specified postprocedural states
CPT/HCPCS: 99283

== ENCOUNTER 2020-06-21 18:02 | Emergency (ER) | payer SELFPAY ==
[~2020-06-21] VITALS: Ht 160 cm; Wt 61.0 kg
[~2020-06-21 18:02] MED LIST changes: +NAPR-699 PO; -NAPR250T6 PO
[2020-06-21] MEDS ORDERED: diphenhydrAMINE 50 MG/ML VIAL IVP ONE (20:00)
[2020-06-21] MEDS ORDERED: KETOROLAC 15 MG/ML VIAL. IVP ONE (20:00)
[2020-06-21] MEDS ORDERED: METOCLOPRAMIDE HCL 10 MG/2 ML VIAL. IVP ONE (20:00)
[2020-06-21] MEDS ORDERED: IV NORMAL SALINE 1000ML BAG 1,000 ML IV ONE (20:00)
[2020-06-21 20:03] LABS: BILIRUBIN,URINE SMALL (NEG); CLARITY,URINE CLEAR; COLOR,URINE YELLOW; NITRITE,URINE NEGATIVE (NEG); PH,URINE 5.5 (<5.0-8.0); PROTEIN,URINE >=300 mg/dL (NEG-TRACE); UROBILINOGEN,URINE 0.2 mg/dL (0.2 mg/dL)
[2020-06-21 20:11] LABS: BACTERIA,URINE MODERATE /HPF (0-FEW)
[2020-06-21 20:12] LABS: RBC,URINE 0 /HPF (0-2); YEAST,URINE PRESENT /HPF
--- NOTE | 2020-06-21 20:14 | PHYS DOC ---
Past Medical History Past Medical History: Diabetes-Type I, Hypertension, Migraines Additional Past Medical Histor: neuropathy; osteomyelitis, dental caries, substance abuse Past Surgical History: Additional Past Surgical Histo: left ankle I&D Smoking Status: Current Every Day Smoker Alcohol Use: None Drug Use: None General Adult EDM: Chief Complaint: HEADACHE HPI: HPI: Patient is a 45 year old female who presents with headache. Headache began morning when patient woke up. Reports she has had headaches in the past but "never anything like this." Describes pain as sharp and throbbing in b/l periorbital regions, sometimes radiating to the top of her head. Complains of eyes watering, some blurred vision, and nausea. She states that pain has remained constant since and has not worsened. Patient tried several [id number] medications which did not improve symptoms. She says that pain is worse when she is in the light and that being in a dark room helps. She denies seeing spots or any vision changes. She drove herself to the hospital. She is not sexually active and her last menstrual period was 2 weeks ago. She has a history of uncontrolled type 1 diabetes and has complained of frequent urination over the past 2 or 3 weeks. She is a 1 pack/day smoker and does not regularly meet with a physician regarding her hypertension and diabetes. She has a history of otitis media which has worsened-- for which she has been taking "Bactrim for the past 45 days". She does not complain or show signs of neurological deficit Review of Systems: Review of Systems: Constitutional: Denies fever or chills Eyes: Denies redness. Admits eye pain and blurriness HENT: Denies nasal congestion or sore throat Respiratory: Denies cough or shortness of breath Cardiovascular: Denies chest pain or palpitations GI: Denies abdominal pain, and vomiting. Reports nausea. : Denies dysuria or hematuria Musculoskeletal: Reports mild back pain; Denies joint pain Integument: Denies rash or skin lesions Neurologic: Reports headache. No focal weakness or sensory changes Complete systems were reviewed and found to be within normal limits, except as documented in this note. Heart Score: C/O Chest Pain: N/A Family History: Family History: Father from colon cancer Current Medications: Current Medications Medications (Trade) Dose Ordered Sig/Kavin Start Time Stop Time Status Last Admin Dose Admin Diphenhydramine HCl (Benadryl) 25 mg 1X ONCE 06/21/20 20:00 06/21/20 20:01 Ketorolac Tromethamine (Toradol 15mg Vial) 10 mg 1X ONCE 06/21/20 20:00 06/21/20 20:01 Metoclopramide HCl (Reglan Vial) 10 mg 1X ONCE 06/21/20 20:00 06/21/20 20:01 Sodium Chloride 1,000 ml @ 1,000 mls/hr 1X ONCE 06/21/20 20:00 06/21/20 20:59 Allergies: Allergies: Allergies Coded Allergies Type Severity Reaction Last Updated Verified No Known Drug Allergies 03/07/13 No Physical Exam: PE: Constitutional: Well developed, well nourished, no acute distress, non-toxic appearance HENT: Normocephalic, atraumatic Eyes: PERRL, EOMI, conjunctiva normal, no discharge Neck: Normal range of motion, no tenderness, supple Lungs & Thorax: No respiratory distress, equal chest rise and fall Abdomen: Soft, no tenderness Skin: Warm, dry, no erythema, no rash Back: No tenderness, no CVA tenderness Extremities: No tenderness, ROM intact, no edema Neurologic: Alert and oriented X 3, normal motor function, normal sensory function, no focal deficits noted Psychologic: Affect normal, judgment normal Current Patient Data: Vital Signs: Vital Signs Date Time Temp Pulse Resp B/P (MAP) Pulse Ox O2 Delivery O2 Flow Rate FiO2 06/21/20 19:01 108 18 126/70 (88) 94 Room Air 06/21/20 18:32 98.2 98.2 EKG: EKG: [] Radiology/Procedures: Radiology/Procedures: PROCEDURE: CT HEAD WO CONTRAST Exam: CT head INDICATION: Headache, hypertension TECHNIQUE: Sequential axial images through the head were obtained without the administration of IV contrast. Comparisons: 03/13/2020 FINDINGS: No focal parenchymal lesion or hemorrhage is identified. There is no midline shift or sulcal effacement. Mild patchy hypodensity in the periventricular white matter, similar prior exam. No acute vascular territory infarction is identified. Feliz-white distinction is preserved. The ventricular system is within normal limits without compression hydrocephalus. The basal cisterns are well maintained. The visualized portions of the paranasal sinuses and mastoid air cells are well- pneumatized. No acute fractures. IMPRESSION: No acute intracranial abnormality. Exposure: One or more of the following in the visualized dose reduction techniques were utilized for this examination: 1. Automated exposure control 2. Adjustment of the MA and/or KV according to patient size Use of iterative of reconstructive technique Electronically signed by: Solo Bates MD (06/21/2020 10:45 PM) [facility] Course & Med Decision Making: Course & Med Decision Making Pertinent Labs and Imaging studies reviewed. (See chart for details) Patient showed no signs of neurological deficit on physical exam. She was treated with headache cocktail which resulted in intermittent symptomatic improvement. As patient's diabetes is uncontrolled and is hypertensive. CT head was performed to rule out intracranial hemorrhage. CT head showed no acute process or signs of hemorrhage. Labs obtained and posted to chart. UA with some yeast. Diflucan provided. Patient was discharged with nausea medication, medication to control headache, and referral for neurology physicians for her to follow-up with in the future. Patient's condition and pain improved drastically during ED visit. Patient stable for discharge with outpatient follow-up with PCP/neurology. Discussed findings and plan with patient, who acknowledges understanding and agreement. Dragon Disclaimer: Keri[employer] Disclaimer: This electronic medical record was generated, in whole or in part, using a voice recognition dictation system. Departure Departure Impression: Primary Impression: Headache Qualified Codes: R51.9 - Headache, unspecified Additional Impression: Yeast cystitis Disposition: 01 DC HOME SELF CARE/HOMELESS Condition: STABLE Referrals: NO PCP (PCP) DIRK CAGE MD Patient Instructions: Candidal Vulvovaginitis, Kxrt-am-Ssjy, Headache, FAQs Scripts Fluconazole (DIFLUCAN) 200 Mg Tablet 1 TAB PO DAILY, #1 TAB Take this medication 06/28/20 Prov: ASIYA CARRIZALES DO 06/21/20 Butalb/Acetaminophen/Caffeine ([id number] 50-325-40) 1 Each Tablet 1 EACH PO Q6HRS PRN for HEADACHE, #10 TAB Prov: ASIYA CARRIZALES DO 06/21/20 Ondansetron (ONDANSETRON ODT) 4 Mg Tab.rapdis 1 TAB PO PRN Q6-8HRS PRN for NAUSEA, #16 TAB Prov: ASIYA CARRIZALES DO 06/21/20 ASIYA CARRIZALES DO Jun 21, 2020 20:14
[2020-06-21 20:58] LABS: BASO # 0.2 x10^3/uL (0.0-0.2); BASO % 1 % (0-3); EOS # 0.1 x10^3/uL (0.0-0.7); EOS % 1 % (0-3); HEMATOCRIT 40.7 % (36.0-47.0); HEMOGLOBIN 13.6 g/dL (12.0-15.5); LYMPH # 5.2 x10^3/uL (1.0-4.8); LYMPH % 30 % (24-48); MEAN CORPUSCULAR HEMOGLOBIN 30 pg (25-35); MEAN CORPUSCULAR HGB CONC 33 g/dL (31-37); MEAN CORPUSCULAR VOLUME 90 fL (79-100); MONO # 0.9 x10^3/uL (0.0-1.1); MONO % 5 % (0-9); NEUT # 10.9 x10^3/uL (1.8-7.7); NEUT % 63 % (31-73); PLATELET COUNT 485 x10^3/uL (140-400); RED BLOOD COUNT 4.51 x10^6/uL (3.50-5.40); WHITE BLOOD COUNT 17.3 x10^3/uL (4.0-11.0)
[2020-06-21 21:14] LABS: CALCIUM 8.7 mg/dL (8.5-10.1); CREATININE 1.4 mg/dL (0.6-1.0); GFR 40.7; POTASSIUM 3.7 mmol/L (3.5-5.1)
[2020-06-21 21:19] LABS: ALBUMIN/GLOBULIN RATIO 0.9 (1.0-1.7); MAGNESIUM 1.9 mg/dL (1.8-2.4); TOTAL BILIRUBIN 0.2 mg/dL (0.2-1.0); TOTAL PROTEIN 6.4 g/dL (6.4-8.2)
[2020-06-21] MEDS ORDERED: BUTALB/APAP/CAFEIN 50/325/40MG TABLET. PO ONE (21:45)
[2020-06-21] MEDS ORDERED: FLUCONAZOLE 100 MG TABLET. PO ONE (22:15)
[2020-06-21 22:23] LABS: U PREG PATIENT NEGATIVE (NEG)
--- NOTE | 2020-06-21 22:47 | RAD ---
Exam: CT head INDICATION: Headache, hypertension TECHNIQUE: Sequential axial images through the head were obtained without the administration of IV co ntrast. Comparisons: 03/13/2020 FINDINGS: No focal parenchymal lesion or hemorrhage is identified. There is no midline shift or sulcal effaceme nt. Mild patchy hypodensity in the periventricular white matter, similar prior exam. No acute vascular te rritory infarction is identified. Feliz-white distinction is preserved. The ventricular system is within normal limits without compression hydrocephalus. The basal cisterns are well maintained. The visualized portions of the paranasal sinuses and mastoid air cells are well-pneumatized. No acute fractures. IMPRESSION: No acute intracranial abnormality. Exposure: One or more of the following in the visualized dose reduction techniques were utilized for this examination: 1. Automated exposure control 2. Adjustment of the MA and/or KV according to patient size Use of iterative of reconstructive technique Electronically signed by: Solo Bates MD (06/21/2020 10:45 PM) [facility]
[2020-06-21] MEDS ORDERED: FLUC200T PO (23:00)
[2020-06-21] MEDS ORDERED: ONDA4TAB12 PO (23:00)
[2020-06-21] MEDS ORDERED: BUTA1TAB23 PO (23:00)
[2020-06-21 23:07] VITALS: BP 146/66
== END 2020-06-21 23:17 | disposition home or self-care (01) ==
LOC: ER 18:02
DX: G43.909 Migraine, unspecified, not intractable, without status migrainosus (principal); B37.41 Candidal cystitis and urethritis; H53.8 Other visual disturbances; R11.0 Nausea; E10.9 Type 1 diabetes mellitus without complications; I10 Essential (primary) hypertension; F17.200 Nicotine dependence, unspecified, uncomplicated; Z98.890 Other specified postprocedural states
CPT/HCPCS: 36415; 70450; 80053; 81001; 81025; 83735; 85025; 87086; 96361; 96374; 96375; 99285; J1200; J1885; J2765; J7030

== ENCOUNTER 2020-07-15 18:20 | Emergency (ER) | payer SELFPAY ==
[~2020-07-15] VITALS: Ht 160 cm; Wt 63.6 kg
[~2020-07-15 18:20] MED LIST changes: +BUTA1TAB23 PO; +FLUC200T PO; +ONDA4TAB12 PO
[2020-07-15] MEDS ORDERED: AMLO-186 PO (19:06)
[2020-07-15] MEDS ORDERED: PENI500T PO (19:06)
--- NOTE | 2020-07-15 19:06 | PHYS DOC ---
Past Medical History Past Medical History: Diabetes-Type I, Hypertension, Migraines Additional Past Medical Histor: neuropathy; osteomyelitis, dental caries, substance abuse Past Surgical History: Additional Past Surgical Histo: left ankle I&D Smoking Status: Current Every Day Smoker Alcohol Use: None Drug Use: None Adult General Chief Complaint Chief Complaint: DENTAL PROBLEM HPI HPI Patient is a 45 year old female with a known past medical history of diabetes and hypertension now presenting the emergency department complaint of new onset of dental pain. Patient states that over the last month she has been having worsening pain in the left jaw over the left tooth. Patient states that she has not been able to make it to the dentist because she has not had her license because it was so out of her car therefore stopped able to successfully make an appointment. Patient notes that she had some yellowish discharge coming from the tooth approximate 2 weeks ago. Patient states over the last 2 weeks he is also noted left-sided headache. Patient states she has not been taking any medication for many years and has not seen a physician for years as well. Denies any current fever, chills, nausea, vomiting, chest pain or shortness of breath. Denies any vision changes or dizziness. Review of Systems Review of Systems Constitutional: Denies fever or chills [] Eyes: Denies change in visual acuity, redness, or eye pain [] HENT: Denies nasal congestion or sore throat [] Respiratory: Denies cough or shortness of breath [] Cardiovascular: No additional information not addressed in HPI [] GI: Denies abdominal pain, nausea, vomiting, bloody stools or diarrhea [] : Denies dysuria or hematuria [] Musculoskeletal: Denies back pain or joint pain [] Integument: Denies rash or skin lesions [] Neurologic: Denies headache, focal weakness or sensory changes [] Endocrine: Denies polyuria or polydipsia [] All other systems were reviewed and found to be within normal limits, except as documented in this note. Allergies Allergies Allergies Coded Allergies Type Severity Reaction Last Updated Verified No Known Drug Allergies 03/07/13 No Physical Exam Physical Exam Constitutional: Well developed, well nourished, no acute distress, non-toxic appearance. [] HENT: Normocephalic, atraumatic, bilateral external ears normal, oropharynx moist, no oral exudates, nose normal. [] Eyes: PERRLA, EOMI, conjunctiva normal, no discharge. [] Neck: Normal range of motion, no tenderness, supple, no stridor. [] Cardiovascular:Heart rate regular rhythm, no murmur [] Lungs & Thorax: Bilateral breath sounds clear to auscultation [] Abdomen: Bowel sounds normal, soft, no tenderness, no masses, no pulsatile masses. [] Skin: Warm, dry, no erythema, no rash. [] Back: No tenderness, no CVA tenderness. [] Extremities: No tenderness, no cyanosis, no clubbing, ROM intact, no edema. [] Neurologic: Alert and oriented X 3, normal motor function, normal sensory function, no focal deficits noted. [] Psychologic: Affect normal, judgement normal, mood normal. [] Current Patient Data Vital Signs Vital Signs Date Time Temp Pulse Resp B/P (MAP) Pulse Ox O2 Delivery O2 Flow Rate FiO2 07/15/20 18:27 98.0 98 20 226/105 (145) 98 Room Air 98.0 EKG EKG [] Radiology/Procedures Radiology/Procedures [] Course & Med Decision Making Course & Med Decision Making Pertinent Labs and Imaging studies reviewed. (See chart for details) 45f presenting with new onset of left-sided dental pain irritation likely secondary to a mild dental infection. Patient also with headache probably related to her hypertension. I explained to the patient that we can give her some mild analgesia and antihypertensives here as well as a prescription for penicillin. Patient verbalized understanding agreement discharge plan Dragon Disclaimer Dragon Disclaimer This electronic medical record was generated, in whole or in part, using a voice recognition dictation system. Departure Departure Impression: Primary Impression: Infected dental caries Disposition: HOME / SELF CARE / HOMELESS Condition: GOOD Referrals: NO PCP (PCP) Patient Instructions: Dental Caries, Hypertension Additional Instructions: EMERGENCY DEPARTMENT GENERAL DISCHARGE INSTRUCTIONS Thank you for coming to [facility] Emergency Department (ED) today and trusting us with you care. We trust that you had a positive experience in our Emergency Department. If you wish to speak to the department management, you may call the Director at [phone]. YOUR FOLLOW UP INSTRUCTIONS ARE FOLLOWS: 1. Do you have a private Doctor? If you do not have a private doctor, please ask for a resource list of physicians or clinics that may be able to assist you with follow up care. 2. The Emergency Physicain has interpreted your x-rays. The X-Ray specialist will also review them. If there is a change in the findings, you will be notified in 48 hours when at all possible. 3. A lab test or culture has been done, your results will be reviewed and you will be notified if you need a change in treatment. ADDITIONAL INSTRUCTIONS AND INFORMATION: 1. Your care today has been supervised by a physician who is specially trained in emergency care. Many problems require more than one evaluation for a complete diagnosis and treatment. We recommend that you schedule your follow up appointment as recommended to ensure complete treatment of you illness or injury. If you are unable to obtain follow up care and continue to have a problem, or if your condition worsens, we recommend that you return to the ED. 2. We are not able to safely determine your condition over the phone nor are we able to give sound medical advice over the phone. For these safety reasons, if you call for medical advice we will ask you to come to the ED for further evaluation. 3. If you have any questions regarding these discharge instructions please call the ED at [phone]. SAFETY INFORMATION: In the interest of safety, wellness, and injury prevention; we encourage you to wear your sealbelt, if you smoke; quite smoking, and we encourage family to use a protective helmet for bicycling and other sporting events that present an increased risk for head injury. IF YOUR SYMPTOMS WORSEN OR NEW SYMPTOMS DEVELOP, OR YOU HAVE CONCERNS ABOUT YOUR CONDITION; OR IF YOUR CONDITION WORSENS WHILE YOU ARE WAITING FOR YOUR FOLLOW UP APPOINTMENT; EITHER CONTACT YOUR PRIMARY CARE DOCTOR, THE PHYSICIAN WHOSE NAME AND NUMBER YOU WERE GIVEN, OR RETURN TO THE ED IMMEDIATELY. Scripts Penicillin V Potassium (PENICILLIN V POTASSIUM) 500 Mg Tablet 1 TAB PO TID for 10 Days, #30 TAB Prov: ARSLAN LOREDO MD 07/15/20 Amlodipine Besylate (AMLODIPINE BESYLATE) 5 Mg Tablet 5 MG PO DAILY for 30 Days, #30 TAB Prov: ARSLAN LOREDO MD 07/15/20 ARSLAN LOREDO MD Jul 15, 2020 19:06
[2020-07-15] MEDS: PENICILLIN V K 250 MG TABLET. PO ONE (19:34)
[2020-07-15] MEDS: ACETAMINOPHEN 500 MG TABLET PO ONE (19:35)
[2020-07-15 19:36] VITALS: BP 179/88
[2020-07-15] MEDS: amLODIPine BESYLATE 5 MG TABLET PO ONE (19:36)
== END 2020-07-15 19:44 | disposition home or self-care (01) ==
LOC: ER 18:20
DX: K04.7 Periapical abscess without sinus (principal); G43.909 Migraine, unspecified, not intractable, without status migrainosus; E10.40 Type 1 diabetes mellitus with diabetic neuropathy, unspecified; I10 Essential (primary) hypertension; E10.69 Type 1 diabetes mellitus with other specified complication; M86.9 Osteomyelitis, unspecified; F17.200 Nicotine dependence, unspecified, uncomplicated
CPT/HCPCS: 99284

== ENCOUNTER 2020-09-03 20:41 | Emergency (ER) | payer SELFPAY ==
[~2020-09-03] VITALS: Ht 160 cm; Wt 63.0 kg
[~2020-09-03 20:41] MED LIST changes: +AMLO-186 PO
[2020-09-03 21:40] LABS: BILIRUBIN,URINE NEGATIVE (NEG); CLARITY,URINE CLEAR; COLOR,URINE YELLOW; NITRITE,URINE NEGATIVE (NEG); PROTEIN,URINE 100 mg/dL (NEG-TRACE); UROBILINOGEN,URINE 0.2 mg/dL (0.2 mg/dL)
[2020-09-03 21:46] LABS: BARBITURATES NEG (NEG); BENZODIAZEPINES NEG (NEG); CANNABINOIDS NEG (NEG); COCAINE NEG (NEG); METHADONE NEG (NEG); OPIATES NEG (NEG); PHENCYCLIDINE NEG (NEG)
[2020-09-03 21:47] LABS: AMPHETAMINE/METHAMPHETAMINE NEG (NEG); BACTERIA,URINE MODERATE /HPF (0-FEW); WBC,URINE 20-40 /HPF (0-4)
[2020-09-03 21:50] LABS: RBC,URINE OCC /HPF (0-2)
--- NOTE | 2020-09-03 21:51 | RAD ---
CT HEAD INDICATION: Reason: headache, HTN, blurry vision / Spl. Instructions: / History: COMPARISON: 06/21/2020 Exposure: One or more of the following individualized dose reduction techniques were utilized for thi s examination: 1. Automated exposure control 2. Adjustment of the mA and/or kV according to patient size 3. Use of iterative reconstruction technique TECHNIQUE: 5 mm contiguous axial images were obtained from the skull base to the vertex in both bone and soft tissue algorithm. FINDINGS: No abnormal attenuation within the brain parenchyma. No evidence of acute intracranial hemorrhage. No extra-axial fluid collections. No mass effect or midline shift. Ventricular size is appropriate. Basal cisterns are patent. No fractures identified.Feliz-white differentiation is preserved.Globes and orbits are within normal l imits. Paranasal sinuses and mastoid air cells are clear. IMPRESSION: No acute intracranial findings. Electronically signed by: Kevin Putnam MD (09/03/2020 9:49 PM) [id number]
[2020-09-03] MEDS ORDERED: SULF1TAB24 PO (22:21)
[2020-09-03] MEDS ORDERED: SUMA50TA3 PO (22:21)
[2020-09-03] MEDS ORDERED: NICO1PAT21 TP (22:21)
--- NOTE | 2020-09-03 22:21 | PHYS DOC ---
Past Medical History Past Medical History: Diabetes-Type I, Hypertension, Migraines Additional Past Medical Histor: neuropathy; osteomyelitis, dental caries, substance abuse (RICOXAVI Horton ORTHOTIC/PROSTHETIC PRACTITIONER) Past Surgical History: Additional Past Surgical Histo: left ankle I&D (RICOXAVI Horton ORTHOTIC/PROSTHETIC PRACTITIONER) Smoking Status: Current Every Day Smoker Alcohol Use: None Drug Use: None (HOWARDXAVI RUIZ ORTHOTIC/PROSTHETIC PRACTITIONER) General Adult EDM: Chief Complaint: HEADACHE HPI: HPI: Patient is a 45 year old female with history of uncontrolled diabetes type 1, hypertension, migraine headaches, who presents to the ED today complaining of 9 out of 10 periorbital headache bilaterally, symptoms have been going on since this morning. Patient is also complaining of blurry vision and high blood pressure. Patient denies any nausea or vomiting. She states she is never experienced similar headache before. Patient denies having a PCP. She states she typically comes to the ED for most of her care. She states she does not want any lab work or EKG. She states she prefers a CT of the head. She states she is on amlodipine 5 mg for her hypertension. Patient is also a current smoker (XAVI ESPINAL ORTHOTIC/PROSTHETIC PRACTITIONER) Review of Systems: Review of Systems: Constitutional: Denies fever or chills. [] Eyes: Reports blurry vision. Denies change in visual acuity. [] HENT: Denies nasal congestion or sore throat. [] Respiratory: Denies cough or shortness of breath. [] Cardiovascular: Denies chest pain or edema. [] GI: Denies abdominal pain, nausea, vomiting, bloody stools or diarrhea. [] : Denies dysuria. [] Musculoskeletal: Denies back pain or joint pain. [] Integument: Denies rash. [] Neurologic: Reports headache focal weakness or sensory changes. [] Psychiatric: Denies depression or anxiety. [] (XAVI ESPINAL ORTHOTIC/PROSTHETIC PRACTITIONER) Heart Score: C/O Chest Pain: N/A Risk Factors: Risk Factors: DM, Current or recent (<one month) smoker, HTN, HLP, family history of CAD, obesity. Risk Scores: Score 0 - 3: 2.5% MACE over next 6 weeks - Discharge Home Score 4 - 6: 20.3% MACE over next 6 weeks - Admit for Clinical Observation Score 7 - 10: 72.7% MACE over next 6 weeks - Early Invasive Strategies (XAVI ESPINAL ORTHOTIC/PROSTHETIC PRACTITIONER) Allergies: Allergies: Allergies Coded Allergies Type Severity Reaction Last Updated Verified No Known Drug Allergies 03/07/13 No (XAVI ESPINAL ORTHOTIC/PROSTHETIC PRACTITIONER) Physical Exam: PE: Constitutional: Well developed, well nourished, no acute distress, non-toxic appearance. [] HENT: Normocephalic, atraumatic, bilateral external ears normal, oropharynx moist, no oral exudates, nose normal. [] Eyes: PERRLA, EOMI, conjunctiva normal, no discharge. [] Inner chambers are normal Neck: Normal range of motion, no tenderness, supple, no stridor. [] Cardiovascular:Heart rate regular rhythm, no murmur [] Lungs & Thorax: Bilateral breath sounds clear to auscultation [] Abdomen: Bowel sounds normal, soft, no tenderness, no masses, no pulsatile masses. [] Skin: Warm, dry, no erythema, no rash. [] Back: No tenderness, no CVA tenderness. [] Extremities: No tenderness, no cyanosis, no clubbing, ROM intact, no edema. [] Neurologic: Alert and oriented X 3, normal motor function, normal sensory function, no focal deficits noted. Cranial nerves II through XII are intact Psychologic: Affect normal, judgement normal, mood normal. [] (XAVI ESPINAL ORTHOTIC/PROSTHETIC PRACTITIONER) Current Patient Data: Labs: Laboratory Tests Test 09/03/20 21:00 Urine Collection Type Unknown Urine Color Yellow Urine Clarity Clear Urine pH 6.0 (<5.0-8.0) Urine Specific Falls >=1.030 (1.000-1.030) Urine Protein 100 mg/dL (NEG-TRACE) Urine Glucose (UA) >=1000 mg/dL (NEG) Urine Ketones (Stick) Negative mg/dL (NEG) Urine Blood Trace (NEG) Urine Nitrite Negative (NEG) Urine Bilirubin Negative (NEG) Urine Urobilinogen Dipstick 0.2 mg/dL (0.2 mg/dL) Urine Leukocyte Esterase Small (NEG) Urine RBC Occ /HPF (0-2) Urine WBC 20-40 /HPF (0-4) Urine Squamous Epithelial Cells Many /LPF Urine Bacteria Moderate /HPF (0-FEW) Urine Mucus Mod /LPF Urine Opiates Screen Neg (NEG) Urine Methadone Screen Neg (NEG) Urine Barbiturates Neg (NEG) Urine Phencyclidine Screen Neg (NEG) Urine Amphetamine/Methamphetamine Neg (NEG) Urine Benzodiazepines Screen Neg (NEG) Urine Cocaine Screen Neg (NEG) Urine Cannabinoids Screen Neg (NEG) Urine Ethyl Alcohol Neg (NEG) Vital Signs: Vital Signs Date Time Temp Pulse Resp B/P (MAP) Pulse Ox O2 Delivery O2 Flow Rate FiO2 09/03/20 20:56 98.4 114 18 181/76 (111) 95 Room Air 98.4 (XAVI ESPINAL ORTHOTIC/PROSTHETIC PRACTITIONER) EKG: EKG: [] (XAVI ESPINAL ORTHOTIC/PROSTHETIC PRACTITIONER) Radiology/Procedures: Radiology/Procedures: []PROCEDURE: CT HEAD WO CONTRAST CT HEAD INDICATION: Reason: headache, HTN, blurry vision / Spl. Instructions: / History: COMPARISON: 06/21/2020 Exposure: One or more of the following individualized dose reduction techniques were utilized for this examination: 1. Automated exposure control 2. Adjustment of the mA and/or kV according to patient size 3. Use of iterative reconstruction technique TECHNIQUE: 5 mm contiguous axial images were obtained from the skull base to the vertex in both bone and soft tissue algorithm. FINDINGS: No abnormal attenuation within the brain parenchyma. No evidence of acute intracranial hemorrhage. No extra-axial fluid collections. No mass effect or midline shift. Ventricular size is appropriate. Basal cisterns are patent. No fractures identified.Feliz-white differentiation is preserved.Globes and orbits are within normal limits. Paranasal sinuses and mastoid air cells are clear. IMPRESSION: No acute intracranial findings. Electronically signed by: Kevin Putnam MD (09/03/2020 9:49 PM) [id number] DICTATED and SIGNED BY: KEVIN PUTNAM MD DATE: 09/03/20 [id number] (XAVI ESPINAL Michele ORTHOTIC/PROSTHETIC PRACTITIONER) Course & Med Decision Making: Course & Med Decision Making Pertinent Labs and Imaging studies reviewed. (See chart for details) This is a 45-year-old female patient well-known to this ED presenting today complaining of a periorbital headache, high blood pressure, symptoms began this morning. Patient stated this headache is not normal for her. CT of the head was obtained which was negative. Blood pressure was in the 180s over 70s. Urine positive for UTI discharged on cephalexin. Treated for her headache in the ED, also given clonidine for blood pressure. Highly advised this patient to consider following up with a primary care doctor. Patient was advised to consider smoking cessation, 5 minutes was spent on the topic. Nicotine patches provided the patient was not willing to stop (HOWARDJOSEPHXAVI Michele TEE) Dragon Disclaimer: Dragon Disclaimer: This electronic medical record was generated, in whole or in part, using a voice recognition dictation system. (HOWARDJESUSITASolXAVI Michele TEE) Departure Departure Impression: Primary Impression: Headache Qualified Codes: R51.9 - Headache, unspecified; G89.29 - Other chronic pain Additional Impressions: UTI (urinary tract infection) Qualified Codes: N30.00 - Acute cystitis without hematuria High blood pressure Qualified Codes: I10 - Essential (primary) hypertension Smoking addiction Disposition: HOME / SELF CARE / HOMELESS Condition: STABLE Referrals: NO PCP (PCP) Follow-up with your primary care doctor Patient Instructions: Headache, FAQs, Managing Your High Blood Pressure, Urinary Tract Infection Additional Instructions: You were evaluated in the emergency room for headache, your blood pressure is running high, we highly recommend you follow-up with a primary care doctor. Consider smoking cessation. Scripts Fluconazole (DIFLUCAN) 150 Mg Tablet 1 TAB PO ONCE, #1 TAB 1 Refill Prov: XAVI ESPINAL NAY 09/03/20 Sumatriptan Succinate (IMITREX) 50 Mg Tablet 1 TAB PO UD, #9 TAB 1 Refill Take 1 tablet at the onset of the headache, repeat in 1 hour if symptoms persist, do not take more than 2 tablets in 24 hours Prov: XAVI ESPINAL Michele TEE 09/03/20 Sulfamethoxazole/Trimethoprim (BACTRIM DS TABLET) 1 Each Tablet 1 TAB PO BID for 3 Days, #6 TAB 0 Refills Prov: XAVI ESPINAL Michele TEE 09/03/20 Nicotine (NICODERM CQ 21mg) 1 Each Patch.td24 1 PATCH TP DAILY, #28 PATCH 1 Refill Prov: XAVI ESPINAL NAY 09/03/20 Attending Signature Attending Signature I have reviewed the PA/RUG SETTER VELVET's note and plan of care. I was available for consultation as needed during the patient's visit in the emergency department. I agree with the clinical impression, plan, and disposition. (ASIYA CARRIZALES DO) XAVI ESPINAL APRN Sep 03, 2020 22:21 ASIYA CARRIZALES DO Sep 03, 2020 23:42
[2020-09-03] MEDS ORDERED: FLUC150T PO (22:32)
[2020-09-03 22:36] VITALS: BP 158/126
[2020-09-03] MEDS ORDERED: cloNIDine HCL 0.1 MG TABLET PO ONE (23:00)
[2020-09-03] MEDS ORDERED: LIDOCAINE 1% PF 2 ML VIAL. INJ ONE (23:00)
[2020-09-03] MEDS ORDERED: cefTRIAXone IM 1 GM VIAL IM ONE (23:00)
== END 2020-09-03 22:45 | disposition home or self-care (01) ==
LOC: ER 20:41
DX: N30.00 Acute cystitis without hematuria (principal); G43.909 Migraine, unspecified, not intractable, without status migrainosus; G89.29 Other chronic pain; I10 Essential (primary) hypertension; E10.40 Type 1 diabetes mellitus with diabetic neuropathy, unspecified; F17.200 Nicotine dependence, unspecified, uncomplicated
CPT/HCPCS: 70450; 80307; 81001; 87086; 96372; 99284; J0696; J3490

== ENCOUNTER 2020-10-30 15:52 | Emergency (ER) | payer SELFPAY ==
[~2020-10-30 15:52] MED LIST changes: -DOXY100C2 PO; +DOXY100C3 PO; +FLUC150T PO; +NICO1PAT21 TP; +SULF1TAB24 PO; +SUMA50TA3 PO
== END 2020-10-30 19:57 | disposition left against medical advice (07) ==
LOC: ER 15:52
DX: R06.02 Shortness of breath (principal); R05 Cough; Z53.21 Procedure and treatment not carried out due to patient leaving prior to being seen by health care provider

== ENCOUNTER 2020-11-29 11:27 | Emergency (ER) | payer SELFPAY ==
[~2020-11-29] VITALS: Ht 157.5 cm; Wt 63.0 kg
[~2020-11-29 11:27] MED LIST changes: +ERYT1OIN3 OD; +ERYT1OIN3 RIGHTEYE; -ERYT1OIN6 OD; -ERYT1OIN6 RIGHTEYE
[2020-11-29 11:42] VITALS: BP 165/78
[2020-11-29] MEDS ORDERED: NEOMYCIN/POLYMYXIN/HC OTIC SUSPENSION 10ML BOTTLE. AU ONE (12:00)
[2020-11-29] MEDS ORDERED: DEXAMETHASONE 4 MG TABLET PO ONE (12:00)
[2020-11-29] MEDS ORDERED: CIPROFLOXACIN HCL 250 MG TABLET. PO ONE (12:00)
[2020-11-29] MEDS ORDERED: CIPR500T94 PO (12:13)
[2020-11-29] MEDS ORDERED: NEOM10DR32 EACH EAR (12:13)
[2020-11-29] MEDS ORDERED: PRED20TA PO (12:13)
--- NOTE | 2020-11-29 12:13 | PHYS DOC ---
Past Medical History Past Medical History: Diabetes-Type I, Hypertension, Migraines Additional Past Medical Histor: neuropathy; osteomyelitis, dental caries, substance abuse Past Surgical History: Additional Past Surgical Histo: left ankle I&D Smoking Status: Current Every Day Smoker Alcohol Use: None Drug Use: None General Adult EDM: Chief Complaint: EARACHE/EAR PAIN HPI: HPI: Patient is a 45 year old female presents with 2-week history of bilateral earache, yellow discharge, and ear swelling. Patient reports history of chronic otitis externa. Patient reports she is diabetic. Reports she has been watching her diet and taking insulin as required. Patient reports she was previously following with an ear nose and throat doctor however she has not been able to secondary to outstanding bills. Denies any fever or chills. Patient reports her hearing has significantly decreased. Review of Systems: Review of Systems: Constitutional: Denies fever or chills Eyes: Denies redness or eye pain HENT: Reports bilateral decreased hearing, earache, discharge, and external ear swelling Respiratory: Denies cough or shortness of breath Cardiovascular: Denies chest pain or palpitations GI: Denies abdominal pain, nausea, or vomiting : Denies dysuria or hematuria Musculoskeletal: Denies back pain or joint pain Integument: Denies rash or skin lesions Neurologic: Denies headache, focal weakness or sensory changes Complete systems were reviewed and found to be within normal limits, except as documented in this note. Heart Score: C/O Chest Pain: N/A Current Medications: Current Medications Medications (Trade) Dose Ordered Sig/Kavin Start Time Stop Time Status Last Admin Dose Admin Ciprofloxacin (Cipro) 500 mg 1X ONCE 11/29/20 12:00 11/29/20 12:01 Dexamethasone (Decadron) 10 mg 1X ONCE 11/29/20 12:00 11/29/20 12:01 Neomycin/ Polymyxin/ Hydrocortisone (Cortisporin Otic) 4 drop 1X ONCE 11/29/20 12:00 11/29/20 12:01 UNV Allergies: Allergies: Allergies Coded Allergies Type Severity Reaction Last Updated Verified No Known Drug Allergies 03/07/13 No Physical Exam: PE: Constitutional: Well developed, well nourished, no acute distress, non-toxic appearance HENT: Normocephalic, atraumatic, bilateral external ear swelling, yellow discharge noted from bilateral canals, significant canal swelling consistent for otitis externa Eyes: Conjunctiva normal, no discharge Neck: Normal range of motion, supple Lungs & Thorax: No respiratory distress, equal chest rise and fall Skin: Warm, dry, no erythema, no rash Extremities: No tenderness, ROM intact, no edema Neurologic: Alert and oriented X 3, no focal deficits noted Psychologic: Affect normal, judgment normal Current Patient Data: Labs: Laboratory Tests Test 11/29/20 11:55 Glucose (Fingerstick) 168 mg/dL (70-99) H EKG: EKG: [] Radiology/Procedures: Radiology/Procedures: [] Course & Med Decision Making: Course & Med Decision Making Diabetic patient presents with HPI and physical exam consistent for bilateral otitis externa. Blood sugar checked and stable. Empiric steroid and oral antibiotic initiated. Corticosporin optic drops applied with ear westley bilaterally. Patient stable for discharge with outpatient follow-up with PCP/ENT. ENT referral provided. Discussed findings and plan with patient, who acknowledges understanding and agreement. Renu Disclaimer: Renu Disclaimer: This electronic medical record was generated, in whole or in part, using a voice recognition dictation system. Additional Procedures Progress Bilateral ear wick placement Verbal consent obtained. Time out performed. Hand hygiene utilized. Ear westley placed bilaterally with subsequent placement of 4 drops of Corticosporin Arctic ear suspension. Patient tolerated procedure well and without difficulty. Departure Departure Impression: Primary Impression: Otitis externa Qualified Codes: H60.313 - Diffuse otitis externa, bilateral Disposition: HOME / SELF CARE / HOMELESS Condition: STABLE Referrals: NO PCP (PCP) ESTHER CALHOUN MD Patient Instructions: Otitis Externa, [id number] Scripts Tramadol Hcl (TRAMADOL HCL) 50 Mg Tablet 50 MG PO Q6HRS PRN for PAIN, #14 TAB Prov: ASIYA CARRIZALES DO 11/29/20 Prednisone (PREDNISONE) 20 Mg Tablet 2 TAB PO DAILY, #8 TAB Prov: ASIYA CARRIZALES DO 11/29/20 Ciprofloxacin Hcl (CIPRO) 500 Mg Tablet 1 TAB PO BID for 7 Days, #14 TAB Prov: ASIYA CARRIZALES DO 11/29/20 Neomycin/Polymyxin B Sulf/Hc ([id number] EAR SUSP) 10 Ml Drops.susp 4 DROP EACH EAR TID for 5 Days, #10 ML 0 Refills Prov: ASIYA CARRIZALES DO 11/29/20 ASIYA CARRIZALES DO Nov 29, 2020 12:13
[2020-11-29] MEDS ORDERED: TRAM50TA PO (12:34)
== END 2020-11-29 12:44 | disposition home or self-care (01) ==
LOC: ER 11:27
DX: H60.313 Diffuse otitis externa, bilateral (principal); I10 Essential (primary) hypertension; G43.909 Migraine, unspecified, not intractable, without status migrainosus; E10.40 Type 1 diabetes mellitus with diabetic neuropathy, unspecified; F17.200 Nicotine dependence, unspecified, uncomplicated
CPT/HCPCS: 82962; 99284

== ENCOUNTER 2020-12-28 19:13 | Emergency (ER) | payer SELFPAY ==
[~2020-12-28 19:13] MED LIST changes: +CIPR500T94 PO; +NEOM10DR32 EACH EAR
== END 2020-12-28 23:33 | disposition left against medical advice (07) ==
LOC: ER 19:13
DX: H66.92 Otitis media, unspecified, left ear (principal); Z53.21 Procedure and treatment not carried out due to patient leaving prior to being seen by health care provider

== ENCOUNTER 2020-12-31 21:06 | Emergency (ER) | payer SELFPAY ==
[~2020-12-31] VITALS: Ht 157.5 cm; Wt 60.0 kg
[~2020-12-31 21:06] MED LIST changes: +CLIN-94 PO; -CLIN300C9 PO
[2020-12-31] MEDS ORDERED: MORPHINE SULFATE 4 MG/ML INJ. IVP ONE (22:00)
[2020-12-31 22:30] VITALS: BP 154/70
[2020-12-31 22:38] LABS: BASO # 0.1 x10^3/uL (0.0-0.2); BASO % 1 % (0-3); EOS # 0.2 x10^3/uL (0.0-0.7); EOS % 2 % (0-3); HEMATOCRIT 38.9 % (36.0-47.0); HEMOGLOBIN 13.1 g/dL (12.0-15.5); LYMPH % 24 % (24-48); MEAN CORPUSCULAR HEMOGLOBIN 31 pg (25-35); MEAN CORPUSCULAR HGB CONC 34 g/dL (31-37); MEAN CORPUSCULAR VOLUME 91 fL (79-100); MONO # 0.7 x10^3/uL (0.0-1.1); MONO % 6 % (0-9); NEUT # 8.8 x10^3/uL (1.8-7.7); NEUT % 68 % (31-73); PLATELET COUNT 469 x10^3/uL (140-400); RED BLOOD COUNT 4.28 x10^6/uL (3.50-5.40); RED CELL DISTRIBUTION WIDTH 14.8 % (11.5-14.5); WHITE BLOOD COUNT 12.8 x10^3/uL (4.0-11.0)
[2020-12-31 22:51] LABS: BILIRUBIN,URINE NEGATIVE (NEG); CLARITY,URINE CLEAR; COLOR,URINE YELLOW; NITRITE,URINE NEGATIVE (NEG); PH,URINE 6.5 (<5.0-8.0); PROTEIN,URINE 100 mg/dL (NEG-TRACE); UROBILINOGEN,URINE 0.2 mg/dL (0.2 mg/dL)
[2020-12-31 22:56] LABS: ALBUMIN 3.3 g/dL (3.4-5.0); ALBUMIN/GLOBULIN RATIO 0.9 (1.0-1.7); CREATININE 1.4 mg/dL (0.6-1.0); GFR 40.7; POTASSIUM 4.5 mmol/L (3.5-5.1); TOTAL BILIRUBIN 0.2 mg/dL (0.2-1.0); TOTAL PROTEIN 7.1 g/dL (6.4-8.2)
[2020-12-31 22:57] LABS: BACTERIA,URINE 0 /HPF (0-FEW); RBC,URINE OCC /HPF (0-2); WBC,URINE 0 /HPF (0-4)
[2020-12-31 23:03] LABS: CALCIUM 8.8 mg/dL (8.5-10.1)
[2020-12-31] MEDS ORDERED: IV NORMAL SALINE 1000ML BAG 1,000 ML IV ONE (23:15)
[2020-12-31] MEDS ORDERED: CONTRAST GIVEN. MC PRN (23:15)
[2020-12-31] MEDS ORDERED: IOHEXOL 300 MG/ML 100ML VIAL. IV ONE (23:15)
--- NOTE | 2020-12-31 23:39 | RAD ---
Exam: CT neck with contrast INDICATION: Left ear infection TECHNIQUE: Sequential axial images through the neck obtained following the administration 60 mL of Om ni 300 IV contrast. Sagittal and coronal reformatted images were reconstructed from the axial data an d reviewed. Exposure: One or more of the following in the visualized dose reduction techniques were utilized for this examination: 1. Automated exposure control 2. Adjustment of the MA and/or KV according to patient size 3. Use of iterative of reconstructive technique Comparisons: None FINDINGS: Visualized cranial structures are unremarkable. Globes intradural contents are normal. There is diffuse circumferential soft tissue thickening at the external auditory canals bilaterally. Calcification noted within the external auditory canals bilaterally. The middle ear cavity is well op acified. Mastoid air cells are well pneumatized. Cervical vasculature is patent. Nasopharynx, oropharynx, hypopharynx and larynx are unremarkable. Thyroid and salivary glands are within normal limits. No enlarged cervical lymph nodes are identified. Visual is lung apices are clear. No suspicious osseous lesions or acute fractures. IMPRESSION: Soft tissue thickening of the external auditory canal bilaterally with internal areas of calcificatio n may relate to a chronic otitis externa. The middle ear cavity and mastoid air cells are well-pneuma tized. No evidence for abscess. Electronically signed by: Solo Bates MD (12/31/2020 11:36 PM) ANGELITO
[2021-01-01] MEDS ORDERED: HYDR-2761 PO (00:54)
[2021-01-01] MEDS ORDERED: PRED50TA PO (00:54)
[2021-01-01] MEDS ORDERED: LEVO750T5 PO (00:54)
--- NOTE | 2021-01-01 00:56 | PHYS DOC ---
Past Medical History Past Medical History: Diabetes-Type I, Hypertension, Migraines Additional Past Medical Histor: neuropathy; osteomyelitis, dental caries, substance abuse Past Surgical History: No Surgical History Additional Past Surgical Histo: left ankle I&D Smoking Status: Current Every Day Smoker Alcohol Use: None Drug Use: None General Adult EDM: Chief Complaint: EARACHE/EAR PAIN HPI: HPI: Patient is a 45 year old female with history of diabetes and chronic otitis externa on the left who presents with worsening of her otitis externa pain. Is currently on ciprofloxacin drops, amoxicillin, and recently went off of prednisone. States that her pain has acutely worsened over the past several days. Denies fever/chills. She has had worsening control of her diabetes since the pain has worsened. She sees Cecilia Hess ENT specialist for this problem. Review of Systems: Review of Systems: Constitutional: Denies fever or chills. [] Eyes: Denies change in visual acuity. [] HENT: Severe left ear pain Respiratory: Denies cough or shortness of breath. [] Cardiovascular: Denies chest pain or edema. [] GI: Denies abdominal pain, nausea, vomiting, bloody stools or diarrhea. [] : Denies dysuria. [] Musculoskeletal: Denies back pain or joint pain. [] Integument: Denies rash. [] Neurologic: Denies headache, focal weakness or sensory changes. [] Endocrine: Denies polyuria or polydipsia. [] Lymphatic: Denies swollen glands. [] Psychiatric: Denies depression or anxiety. [] Heart Score: C/O Chest Pain: No Risk Factors: Risk Factors: DM, Current or recent (<one month) smoker, HTN, HLP, family history of CAD, obesity. Risk Scores: Score 0 - 3: 2.5% MACE over next 6 weeks - Discharge Home Score 4 - 6: 20.3% MACE over next 6 weeks - Admit for Clinical Observation Score 7 - 10: 72.7% MACE over next 6 weeks - Early Invasive Strategies Current Medications: Current Medications Medications (Trade) Dose Ordered Sig/Kavin Start Time Stop Time Status Last Admin Dose Admin Info (CONTRAST GIVEN -- Rx MONITORING) 1 each PRN DAILY PRN 12/31/20 23:15 01/02/21 23:14 Iohexol (Omnipaque 300 Mg/ml) 60 ml 1X ONCE 12/31/20 23:15 12/31/20 23:16 DC 12/31/20 23:19 60 ML Levofloxacin/ Dextrose 150 ml @ 100 mls/hr 1X ONCE 12/31/20 22:00 12/31/20 23:29 DC 12/31/20 22:33 100 MLS/HR Morphine Sulfate (Morphine Sulfate) 4 mg 1X ONCE 12/31/20 22:00 12/31/20 22:02 DC 12/31/20 22:32 4 MG Sodium Chloride 1,000 ml @ 1,000 mls/hr 1X ONCE 12/31/20 23:15 01/01/21 00:14 DC 12/31/20 23:48 1,000 MLS/HR Allergies: Allergies: Allergies Coded Allergies Type Severity Reaction Last Updated Verified No Known Drug Allergies 03/07/13 No Physical Exam: PE: Constitutional: Well developed, well nourished, no acute distress, non-toxic a ppearance. [] HENT: Left ear with edema in the canal and purulent expression. Can still see the TM, no mastoid tenderness. Does have some preauricular tenderness and redness. Erythema and edema extends to the entirety of the ear. Eyes: PERRLA, EOMI, conjunctiva normal, no discharge. [] Neck: Normal range of motion, no tenderness, supple, no stridor. [] Cardiovascular:Heart rate regular rhythm, no murmur [] Lungs & Thorax: Bilateral breath sounds clear to auscultation [] Abdomen: Bowel sounds normal, soft, no tenderness, no masses, no pulsatile masses. [] Skin: Warm, dry, no erythema, no rash. [] Extremities: No tenderness, no cyanosis, no clubbing, ROM intact, no edema. [] Neurologic: Alert and oriented X 3, normal motor function, normal sensory function, no focal deficits noted. [] Psychologic: Affect normal, judgement normal, mood normal. [] Current Patient Data: Labs: Laboratory Tests Test 12/31/20 22:20 12/31/20 22:30 12/31/20 22:47 White Blood Count 12.8 x10^3/uL (4.0-11.0) H Red Blood Count 4.28 x10^6/uL (3.50-5.40) Hemoglobin 13.1 g/dL (12.0-15.5) Hematocrit 38.9 % (36.0-47.0) Mean Corpuscular Volume 91 fL (79-100) Mean Corpuscular Hemoglobin 31 pg (25-35) Mean Corpuscular Hemoglobin Concent 34 g/dL (31-37) Red Cell Distribution Width 14.8 % (11.5-14.5) H Platelet Count 469 x10^3/uL (140-400) H Neutrophils (%) (Auto) 68 % (31-73) Lymphocytes (%) (Auto) 24 % (24-48) Monocytes (%) (Auto) 6 % (0-9) Eosinophils (%) (Auto) 2 % (0-3) Basophils (%) (Auto) 1 % (0-3) Neutrophils # (Auto) 8.8 x10^3/uL (1.8-7.7) H Lymphocytes # (Auto) 3.0 x10^3/uL (1.0-4.8) Monocytes # (Auto) 0.7 x10^3/uL (0.0-1.1) Eosinophils # (Auto) 0.2 x10^3/uL (0.0-0.7) Basophils # (Auto) 0.1 x10^3/uL (0.0-0.2) Sodium Level 135 mmol/L (136-145) L Potassium Level 4.5 mmol/L (3.5-5.1) Chloride Level 100 mmol/L (98-107) Carbon Dioxide Level 27 mmol/L (21-32) Anion Gap 8 (6-14) Blood Urea Nitrogen 18 mg/dL (7-20) Creatinine 1.4 mg/dL (0.6-1.0) H Estimated GFR (Cockcroft-Gault) 40.7 BUN/Creatinine Ratio 13 (6-20) Glucose Level 256 mg/dL (70-99) H Lactic Acid Level 0.9 mmol/L (0.4-2.0) Calcium Level 8.8 mg/dL (8.5-10.1) Total Bilirubin 0.2 mg/dL (0.2-1.0) Aspartate Amino Transferase (AST) 9 U/L (15-37) L Alanine Aminotransferase (ALT) 14 U/L (14-59) Alkaline Phosphatase 75 U/L (46-116) Total Protein 7.1 g/dL (6.4-8.2) Albumin 3.3 g/dL (3.4-5.0) L Albumin/Globulin Ratio 0.9 (1.0-1.7) L Urine Collection Type Unknown Urine Color Yellow Urine Clarity Clear Urine pH 6.5 (<5.0-8.0) Urine Specific [place] 1.015 (1.000-1.030) Urine Protein 100 mg/dL (NEG-TRACE) Urine Glucose (UA) >=1000 mg/dL (NEG) Urine Ketones (Stick) 15 mg/dL (NEG) Urine Blood Negative (NEG) Urine Nitrite Negative (NEG) Urine Bilirubin Negative (NEG) Urine Urobilinogen Dipstick 0.2 mg/dL (0.2 mg/dL) Urine Leukocyte Esterase Negative (NEG) Urine RBC Occ /HPF (0-2) Urine WBC 0 /HPF (0-4) Urine Squamous Epithelial Cells Mod /LPF Urine Bacteria 0 /HPF (0-FEW) Urine Mucus Slight /LPF POC Urine HCG, Qualitative Hcg negative (Negative) Laboratory Tests 12/31/20 22:20 Laboratory Tests 12/31/20 22:20 Vital Signs: Vital Signs Date Time Temp Pulse Resp B/P (MAP) Pulse Ox O2 Delivery O2 Flow Rate FiO2 12/31/20 22:32 16 96 Room Air 12/31/20 22:30 97 154/70 (98) 12/31/20 21:46 98.0 98.0 EKG: EKG: [] Radiology/Procedures: Radiology/Procedures: [] Impression: [facility] [id number] [place] [address] IMAGING REPORT Signed PATIENT: RENEE MARQUEZACCOUNT: [id number] : 1975 LOCATION: ER AGE: 45 SEX: F EXAM STATUS: REG ER ORD. PHYSICIAN: LISSETT STEVENS MD REASON: concer for malignant otitis externa on left;OMNI 300, 60ML PROCEDURE: CT SOFT TISSUE NECK W/CONTRAST Exam: CT neck with contrast INDICATION: Left ear infection TECHNIQUE: Sequential axial images through the neck obtained following the admi nistration 60 mL of Omni 300 IV contrast. Sagittal and coronal reformatted images were reconstructed from the axial data and reviewed. Exposure: One or more of the following in the visualized dose reduction techniques were utilized for this examination: 1. Automated exposure control 2. Adjustment of the MA and/or KV according to patient size 3. Use of iterative of reconstructive technique Comparisons: None FINDINGS: Visualized cranial structures are unremarkable. Globes intradural contents are normal. There is diffuse circumferential soft tissue thickening at the external auditory canals bilaterally. Calcification noted within the external auditory canals bilaterally. The middle ear cavity is well opacified. Mastoid air cells are well pneumatized. Cervical vasculature is patent. Nasopharynx, oropharynx, hypopharynx and larynx are unremarkable. Thyroid and salivary glands are within normal limits. No enlarged cervical lymph nodes are identified. Visual is lung apices are clear. No suspicious osseous lesions or acute fractures. IMPRESSION: Soft tissue thickening of the external auditory canal bilaterally with internal areas of calcification may relate to a chronic otitis externa. The middle ear cavity and mastoid air cells are well-pneumatized. No evidence for abscess. Electronically signed by: Solo Okeefe MD (12/31/2020 11:36 PM) [facility] DICTATED and SIGNED BY: SOLO OKEEFE MD DATE: 12/31/20 [id number] 0 Course & Med Decision Making: Course & Med Decision Making Pertinent Labs and Imaging studies reviewed. (See chart for details) Patient is a 45-year-old female with history of diabetes and chronic left-sided otitis externa who presents with acute worsening of her otitis externa. Ears impressively swollen with purulent discharge from the external auditory canal. Fortunately can still see the TM, so does not require wick placement. She is currently on ciprofloxacin drops and amoxicillin orally. She does have an ENT to follow-up with. I was concerned for malignant otitis externa or potential abscess, so labs and CT were obtained. CT did not show any drainable abscess, and had findings consistent with chronic otitis externa. White count was mildly elevated at 12.8. Lactate was normal. She was given Levaquin here in the ED while getting work-up. We will have her continue ciprofloxacin drops, and broaden p.o. coverage with Levaquin. Stressed the importance of expedited ENT follow-up. States that she will call Dr. Hess's office tomorrow morning. [id number] Renu Disclaimer: Renu Disclaimer: This electronic medical record was generated, in whole or in part, using a voice recognition dictation system. Departure Departure Impression: Primary Impression: Otitis externa Disposition: HOME / SELF CARE / HOMELESS Condition: STABLE Referrals: NO PCP (PCP) Additional Instructions: Please stop taking the amoxicillin right now, and start taking levofloxacin once daily for the next 10 days. Please take prednisone as instructed. You can take Tylenol, do not exceed 4000 mg in a day. You can take hydrocodone/Tylenol 5mg/325mg every 6 hours as needed for pain. Please note that this does not contain Tylenol so please factor it into the daily total as above. It will be very important that you follow-up with Dr. Hess to determine next steps of your treatment. Scripts Hydrocodone Bit/Acetaminophen (HYDROCODONE-APAP 5-325 ) 1 Tab Tablet 1 TAB PO PRN Q6HRS PRN for PAIN for 2 Days, #5 TAB 0 Refills Prov: LISSETT STEVENS MD 01/01/21 Prednisone (PREDNISONE) 50 Mg Tablet 0.5 TAB PO DAILY, #7 TAB 0 Refills Prov: LISSETT STEVENS MD 01/01/21 Levofloxacin (LEVOFLOXACIN) 750 Mg Tablet 1 TAB PO DAILY for 10 Days, #10 TAB 0 Refills Prov: LISSETT STEVENS MD 01/01/21 ILSSETT STEVENS MD Jan 01, 2021 00:56
== END 2021-01-01 01:15 | disposition home or self-care (01) ==
LOC: ER 21:06
DX: H60.92 Unspecified otitis externa, left ear (principal); E10.40 Type 1 diabetes mellitus with diabetic neuropathy, unspecified; I10 Essential (primary) hypertension; G43.909 Migraine, unspecified, not intractable, without status migrainosus; F17.200 Nicotine dependence, unspecified, uncomplicated
CPT/HCPCS: 36415; 70491; 80053; 81001; 81025; 83605; 85025; 87040; 96365; 96366; 96375; 99285; J1956; J2270; J7030; Q9967

== ENCOUNTER 2021-03-26 21:01 | Emergency (ER) | payer SELFPAY ==
[~2021-03-26] VITALS: Ht 157.5 cm; Wt 68.6 kg
--- NOTE | 2021-03-26 22:19 | PHYS DOC ---
Past Medical History Past Medical History: Diabetes-Type I, Hypertension, Migraines Additional Past Medical Histor: neuropathy; osteomyelitis, dental caries, substance abuse Past Surgical History: No Surgical History Additional Past Surgical Histo: left ankle I&D Smoking Status: Current Every Day Smoker Alcohol Use: None Drug Use: None General Adult EDM: Chief Complaint: SORE THROAT HPI: HPI: Patient is a 46 year old female who is here for sore throat and headache symptoms. She denies odynophagia, denies fevers or chills. She denies cough. She denies difficulty breathing, wheezing, stridor. She is able to eat and drink, no nausea or vomiting, no chest pain or dyspnea reported. She has not taken anything at all for her headache today. She has been seen multiple times by her primary care doctor as well as here for various issues regarding her ears, ENT issues as well as headache. She has previously taken butalbital, which has not reportedly helped. She reports that very little help from [id number] medicines, though she is not taking these routinely, and again has taken none today. Review of Systems: Review of Systems: Constitutional: Denies fever or chills. [] Eyes: Denies change in visual acuity. Denies visual aura or photophobia. HENT: Sore throat. Very mild nasal congestion. She has chronic otitis externa, which is significantly improved and not bothersome at this time. Respiratory: Denies cough or shortness of breath. [] Cardiovascular: Denies chest pain or edema. [] GI: Denies abdominal pain, nausea, vomiting Neurologic: Reports mild headache. Denies dizziness, vertigo, focal weakness, numbness or tingling. Denies syncope.] Psychiatric: Denies depression or anxiety. [] Heart Score: C/O Chest Pain: No Risk Factors: Risk Factors: DM, Current or recent (<one month) smoker, HTN, HLP, family history of CAD, obesity. Risk Scores: Score 0 - 3: 2.5% MACE over next 6 weeks - Discharge Home Score 4 - 6: 20.3% MACE over next 6 weeks - Admit for Clinical Observation Score 7 - 10: 72.7% MACE over next 6 weeks - Early Invasive Strategies Allergies: Allergies: Allergies Coded Allergies Type Severity Reaction Last Updated Verified No Known Drug Allergies 03/07/13 No Physical Exam: PE: Constitutional: Well developed, well nourished, no acute distress, non-toxic appearance. [] HENT: Normocephalic, atraumatic, oropharynx is patent and clear, no exudate or erythema, mucous membranes are moist. Uvula is midline and not edematous. No facial or oral edema, no drooling or trismus. She is controlling secretions and speaks in full and clear sentences. She has chronic crusting and thickened skin on bilateral sternal ears/pinnae and external canals, there is no warmth erythema or tenderness. There is mild to moderate cerumen in her canals, TMs are visualized and are clear at this time. No mastoid erythema, swelling or tenderness. Eyes: Sclera are clear, conjunctive are normal Neck: Trachea is midline Cardiovascular: Well-perfused appearing Lungs & Thorax: Respirations are nonlabored, no stridor, speaks in full and cl ear sentences Extremities: No edema, no limb deformity Neurologic: Alert and oriented X 3, normal motor function, normal sensory function, no focal deficits noted. [] Psychologic: Affect normal, judgement normal, mood normal. [] EKG: EKG: [] Radiology/Procedures: Radiology/Procedures: [] Course & Med Decision Making: Course & Med Decision Making Pertinent Labs and Imaging studies reviewed. (See chart for details) The patient is given intramuscular Toradol for pain. She is resting comfortably, she manifests no evidence of distress. I discussed the findings, differential diagnosis and plan of care with her. There is no evidence of airway compromise, exam is relatively benign. No indication for further days of exams, laboratory exams or imaging at this time based on current clinical presentation. I told her to follow-up with her primary care physician for further evaluation and treatment of her recurrent headache symptoms as well as for the sore throat. Return precautions are given. Dragon Disclaimer: Dragon Disclaimer: This electronic medical record was generated, in whole or in part, using a voice recognition dictation system. Departure Departure Impression: Primary Impression: Sore throat Additional Impression: Headache Disposition: 01 HOME / SELF CARE / HOMELESS Condition: STABLE Referrals: NO PCP (PCP) Patient Instructions: General Headache Without Cause, Sore Throat Additional Instructions: Return to the ER for more severe pain, uncontrolled vomiting, temperature 100.4 or higher, severe neck stiffness, inability to control secretions, or other concerns. You may take [id number] Tylenol and ibuprofen for pain. You may sip on some caffeine to see if this helps with your pain as well. Stay well- hydrated. Follow-up with your primary care physician. BO PATEL DO Mar 26, 2021 22:19
[2021-03-26] MEDS ORDERED: KETOROLAC 60 MG/2 ML VIAL. IM ONE (22:30)
[2021-03-27 01:57] VITALS: BP 168/72
--- NOTE | 2021-03-29 11:06 | NUR ---
IP: Informed pt of negative covid test. pt verbalized understanding.
== END 2021-03-27 01:57 | disposition home or self-care (01) ==
LOC: ER 21:01
DX: J02.9 Acute pharyngitis, unspecified (principal); Z20.822 Contact with and (suspected) exposure to COVID-19; G43.909 Migraine, unspecified, not intractable, without status migrainosus; E10.40 Type 1 diabetes mellitus with diabetic neuropathy, unspecified; F17.200 Nicotine dependence, unspecified, uncomplicated
CPT/HCPCS: 87070; 87426; 87880; 96372; 99283; J1885; U0003; U0005

== ENCOUNTER 2021-04-13 22:45 | Emergency (ER) | payer SELFPAY | END 2021-04-13 23:50 | disposition left against medical advice (07) | LOC: ER 22:45 | DX: H92.09 Otalgia, unspecified ear (principal); Z53.21 Procedure and treatment not carried out due to patient leaving prior to being seen by health care provider ==

== ENCOUNTER 2021-05-09 22:01 | Emergency (ER) | payer SELFPAY ==
[~2021-05-09] VITALS: Ht 157.5 cm; Wt 63.0 kg
[2021-05-09] MEDS ORDERED: AMOXICILLIN/K CLAV 875/125MG TABLET. PO ONE (22:45)
[2021-05-09] MEDS ORDERED: AMOX1TAB11 PO (22:45)
[2021-05-09] MEDS ORDERED: TRAM50TA PO (22:45)
--- NOTE | 2021-05-09 22:47 | ED.ADGEN ---
Past Medical History Past Medical History: Diabetes-Type I, Hypertension, Migraines Additional Past Medical Histor: neuropathy; osteomyelitis, dental caries, substance abuse Past Surgical History: Other Additional Past Surgical Histo: left ankle I&D Smoking Status: Current Every Day Smoker Alcohol Use: None Drug Use: None Social History Narrative: CURRENTLY DENIES ANY HX OF SUBSTANCE ABUSE. HX OF SUBSTANCE LISTED IN CHART General Adult EDM: Chief Complaint: DENTAL PROBLEM HPI: HPI: Patient is a 46 year old female coming in for dental pain. Patient states that she has multiple dental caries but have increased pain and swelling of right upper gums. Patient has an upcoming dentist appointment. Has been using, ibuprofen for pain. Review of Systems: Review of Systems: All other systems within normal limits except for as noted in the HPI Current Medications: Current Medications Medications (Trade) Dose Ordered Sig/Kavin Start Time Stop Time Status Last Admin Dose Admin Amoxicillin/ Clavulanate Potassium (Augmentin 875/ 125mg) 1 tab 1X ONCE 05/09/21 22:45 05/09/21 22:46 Allergies: Allergies: Allergies Coded Allergies Type Severity Reaction Last Updated Verified No Known Drug Allergies 03/07/13 No Physical Exam: PE: Constitutional: Well developed, well nourished, no acute distress, non-toxic appearance. [] HENT: Normocephalic, atraumatic, bilateral external ears normal, nose normal. Multiple dental caries, eroded 7 tooth with erythema of gingiva, no purulence or drainage. [] Eyes: PERRLA, conjunctiva normal, no discharge. [] Neck: No rigidity, supple, no stridor. [] Cardiovascular: Regular rate and rhythm, brisk cap refill [] Lungs & Thorax: Non labored symmetric respirations, no tachypnea or respiratory distress [] Abdomen: Soft, nondistended. Skin: Warm, dry, no erythema, no rash. [] Back: Unremarkable Extremities: No deformities, range of motion grossly intact, no lower extremity edema [] Neurologic: Alert and oriented X 3, no focal deficits noted. [] Psychologic: Affect normal, judgement normal, mood normal. [] Current Patient Data: Vital Signs: Vital Signs Date Time Temp Pulse Resp B/P (MAP) Pulse Ox O2 Delivery O2 Flow Rate FiO2 05/09/21 22:10 98.4 99 16 198/85 (122) 95 Room Air 98.4 EKG: EKG: [] Heart Score: C/O Chest Pain: No Risk Factors: Risk Factors: DM, Current or recent (<one month) smoker, HTN, HLP, family history of CAD, obesity. Risk Scores: Score 0 - 3: 2.5% MACE over next 6 weeks - Discharge Home Score 4 - 6: 20.3% MACE over next 6 weeks - Admit for Clinical Observation Score 7 - 10: 72.7% MACE over next 6 weeks - Early Invasive Strategies Radiology/Procedures: Radiology/Procedures: [] Course & Med Decision Making: Course & Med Decision Making Pertinent Labs and Imaging studies reviewed. (See chart for details) [] Dragon Disclaimer: Dragon Disclaimer: This electronic medical record was generated, in whole or in part, using a voice recognition dictation system. Departure Departure Impression: Primary Impression: Infected dental carries Disposition: HOME / SELF CARE / HOMELESS Condition: STABLE Referrals: NO PCP (PCP) Patient Instructions: Dental Caries Scripts Tramadol Hcl (TRAMADOL HCL) 50 Mg Tablet 50 MG PO Q6HRS PRN for PAIN for 3 Days, #12 TAB Prov: MARIE OWEN MD 05/09/21 Amoxicillin/Potassium Clav (AMOX TR-K CLV 875-125 MG TAB) 1 Each Tablet 1 TAB PO BID for antibiotic for 10 Days, #20 TAB Prov: MARIE OWEN MD 05/09/21 MARIE OWEN MD May 09, 2021 22:47
[2021-05-09 23:10] VITALS: BP 178/81
== END 2021-05-09 23:15 | disposition home or self-care (01) ==
LOC: ER 22:52
DX: K04.7 Periapical abscess without sinus (principal); I10 Essential (primary) hypertension; G43.909 Migraine, unspecified, not intractable, without status migrainosus; E10.40 Type 1 diabetes mellitus with diabetic neuropathy, unspecified; F17.200 Nicotine dependence, unspecified, uncomplicated
CPT/HCPCS: 99283

== ENCOUNTER 2021-06-30 11:35 | Emergency (ER) | payer SELFPAY ==
[~2021-06-30] VITALS: Ht 160 cm; Wt 87.3 kg
[~2021-06-30 11:35] MED LIST changes: +AMOX1TAB11 PO
--- NOTE | 2021-06-30 11:49 | PHYS DOC ---
Past Medical History Past Medical History: Diabetes-Type I, Hypertension, Migraines Additional Past Medical Histor: neuropathy; osteomyelitis, dental caries, substance abuse Past Surgical History: Other Additional Past Surgical Histo: left ankle I&D Smoking Status: Current Every Day Smoker Alcohol Use: None Drug Use: None General Adult EDM: Chief Complaint: NAUSEA/VOMITING/DIARRHEA HPI: HPI: Patient is a 46 year old male who is here with multiple complaints. She reports 17 days of nausea and vomiting, occasional abdominal discomfort, a few episodes of diarrhea. She denies hematemesis, melena or hematochezia. No localized or focal abdominal pain. She denies abdominal pain at present, and mostly indicates that her abdomen feels like it is "gurgling." She describes waterbrash symptoms and frequent belching. She denies chest pain or dyspnea. She denies cough. She denies runny nose, congestion, sore throat. She reports having a mild headache. She reports that she has had intermittent fevers for the past 17 days. She reports burning with urination. She is diabetic, never ask her blood sugar, has not been taking her medications. She reports that secondary to her nausea vomiting, "I have only been eating animal crackers and ice cream." She reports for greater than 2 weeks she has had bilateral ear redness, crusting and pain. She has obvious evidence of malignant otitis externa. She is seen ENT multiple times. Her last ENT referred her to [facility], but she has refused to go see them, because she reports that she "cannot afford it." She has been fully vaccinated against COVID-19, also received an influenza vaccination in 2020 Review of Systems: Review of Systems: Constitutional: Reports fevers and chills. Eyes: Denies change in visual acuity. [] HENT: Denies nasal congestion or sore throat. [] Respiratory: Denies cough or shortness of breath. [] Cardiovascular: Denies chest pain, palpitations or edema. GI: Reports generalized abdominal discomfort, "gurgling," nausea and vomiting. There are episodes of diarrhea. Denies melena, hematochezia or hematemesis. : She does report dysuria. She denies frequency or urgency. Musculoskeletal: Denies back pain or joint pain. [] Integument: Denies rash. [] Neurologic: He does report a mild headache. Denies numbness, tingling or focal motor weakness. Psychiatric: Denies depression or anxiety. [] Heart Score: C/O Chest Pain: No Risk Factors: Risk Factors: DM, Current or recent (<one month) smoker, HTN, HLP, family history of CAD, obesity. Risk Scores: Score 0 - 3: 2.5% MACE over next 6 weeks - Discharge Home Score 4 - 6: 20.3% MACE over next 6 weeks - Admit for Clinical Observation Score 7 - 10: 72.7% MACE over next 6 weeks - Early Invasive Strategies Allergies: Allergies: Allergies Coded Allergies Type Severity Reaction Last Updated Verified No Known Drug Allergies 03/07/13 No Physical Exam: PE: Constitutional: Well developed, well nourished, no acute distress, non-toxic appearance. [] HENT: Normocephalic, atraumatic, oropharynx is patent and clear, mucous membranes are moist. No oropharyngeal exudate or erythema. Nares are patent and clear. She has evidence of bilateral ligament otitis externa, right worse than left. There is surrounding erythema of the preauricular area of the right ear. Diffuse but mild soft tissue tenderness. No crepitus or subcutaneous emphysema. No evidence of dusky discoloration. There is some significant maceration of bilateral external canals and bilateral pinna. No purulent drainage from the external canals. Unable to visualize TMs. No mastoid erythema, tenderness or fluctuance or swelling. Eyes: PERRLA, EOMI, conjunctiva normal, no discharge. No scleral icterus. Neck: Normal range of motion, no tenderness, supple, no stridor. No meningismus. Cardiovascular:Heart rate regular rhythm, 2 radial and +2 posterior tibial pulses bilaterally Lungs & Thorax: Bilateral breath sounds clear to auscultation, no rales, rhonchi or wheezes. Abdomen: Abdomen is soft, nondistended, nontender to palpation. No palpable masses organomegaly. No CVA tenderness. Skin: Warm, dry, no erythema, no rash. Jaundice. Back: No tenderness, no CVA tenderness. [] Extremities: No tenderness, no cyanosis, no clubbing, ROM intact, no edema. Calf tenderness. Neurologic: Alert and oriented X 3, normal motor function, normal sensory function, no focal deficits noted. [] Psychologic: Affect is anxious and somewhat bizarre. EKG: EKG: [] Radiology/Procedures: Radiology/Procedures: [] Course & Med Decision Making: Course & Med Decision Making Pertinent Labs and Imaging studies reviewed. (See chart for details) The patient is given IV fluids and IV Zofran. No further vomiting has occurred here. She was asking for food and drink most immediately after I left the room. She is drinking water without difficulty. No vomiting or diarrhea produced here. She is nontoxic-appearing. Laboratory exams are relatively unremarkable. I have discussed the findings, differential diagnosis and plan of care with her. I explained that she absolutely must see outpatient ENT, she must see her primary care doctor as well. She will be prescribed oral ciprofloxacin for nickie atment of malignant otitis externa. She admits that this has been present for many years, worsening progressively over the last many months. She clinically has no evidence of mastoiditis, she is nontoxic, no evidence of necrotizing infection at this time. I told her that if she does not follow-up and take the medications as directed, she may have significant untoward or even fatal outcome. She verbalizes understanding. Strict return precautions are given. Dragon Disclaimer: Dragmaira Disclaimer: This electronic medical record was generated, in whole or in part, using a voice recognition dictation system. Departure Departure Impression: Primary Impression: Nausea and vomiting Qualified Codes: R11.2 - Nausea with vomiting, unspecified Additional Impression: Malignant otitis externa, bilateral Qualified Codes: H60.23 - Malignant otitis externa, bilateral Disposition: 01 HOME / SELF CARE / HOMELESS Condition: STABLE Referrals: NO PCP (PCP) Patient Instructions: Gastritis, Adult, Gastroparesis, Nausea and Vomiting, Otitis Externa Additional Instructions: Please use the nausea medicine as needed/as directed. Eat a bland diet. Take the full course of antibiotics for your ear infection. It is imperative that you follow-up with the ENT doctor at [facility]. Please contact your primary care doctor for follow-up as well. Return to the ER for uncontrolled vomiting, dehydration, vomiting blood, severe abdominal pain, chest pain, shortness of breath, or other concerns. Scripts Ciprofloxacin Hcl (CIPROFLOXACIN HCL) 500 Mg Tablet 1 TAB PO BID for 10 Days, #20 TAB Prov: BO PATEL DO 06/30/21 Famotidine (PEPCID) 20 Mg Tablet 20 MG PO HS, #60 TAB Prov: BO PATEL DO 06/30/21 Ondansetron Hcl (ONDANSETRON HCL) 4 Mg Tablet 1 TAB PO PRN Q6HRS for nausea and vomiting, #24 TAB 1 Refill Prov: BO PATEL DO 06/30/21 BO PATEL DO Jun 30, 2021 11:49
[2021-06-30] MEDS ORDERED: ONDANSETRON PF 4 MG/2 ML VIAL. IVP ONE (12:00)
[2021-06-30] MEDS ORDERED: IV NORMAL SALINE 1000ML BAG 1,000 ML IV ONE (12:00)
[2021-06-30 12:22] LABS: BASO # 0.1 x10^3/uL (0.0-0.2); BASO % 0 % (0-3); EOS # 0.1 x10^3/uL (0.0-0.7); EOS % 1 % (0-3); HEMATOCRIT 40.5 % (36.0-47.0); HEMOGLOBIN 13.5 g/dL (12.0-15.5); LYMPH # 2.6 x10^3/uL (1.0-4.8); LYMPH % 20 % (24-48); MEAN CORPUSCULAR HEMOGLOBIN 31 pg (25-35); MEAN CORPUSCULAR HGB CONC 33 g/dL (31-37); MEAN CORPUSCULAR VOLUME 92 fL (79-100); MONO # 0.8 x10^3/uL (0.0-1.1); MONO % 6 % (0-9); NEUT # 9.2 x10^3/uL (1.8-7.7); NEUT % 72 % (31-73); PLATELET COUNT 394 x10^3/uL (140-400); RED CELL DISTRIBUTION WIDTH 14.6 % (11.5-14.5); WHITE BLOOD COUNT 12.8 x10^3/uL (4.0-11.0)
[2021-06-30 12:29] LABS: CALCIUM 9.5 mg/dL (8.5-10.1); CREATININE 1.6 mg/dL (0.6-1.0); GFR 34.7; POTASSIUM 3.9 mmol/L (3.5-5.1)
[2021-06-30 12:34] LABS: ALBUMIN 2.7 g/dL (3.4-5.0); ALBUMIN/GLOBULIN RATIO 0.7 (1.0-1.7); MAGNESIUM 1.7 mg/dL (1.8-2.4); TOTAL BILIRUBIN 0.2 mg/dL (0.2-1.0); TOTAL PROTEIN 6.6 g/dL (6.4-8.2)
[2021-06-30 12:42] LABS: BARBITURATES NEG (NEG); BENZODIAZEPINES NEG (NEG); CANNABINOIDS NEG (NEG); COCAINE NEG (NEG); METHADONE NEG (NEG); OPIATES NEG (NEG); PHENCYCLIDINE NEG (NEG)
[2021-06-30 12:47] LABS: AMPHETAMINE/METHAMPHETAMINE NEG (NEG)
[2021-06-30 12:55] LABS: BACTERIA,URINE FEW /HPF (0-FEW); RBC,URINE OCC /HPF (0-2)
[2021-06-30 13:17] LABS: PREG TEST PT QUAL NEGATIVE (NEG)
[2021-06-30 13:41] VITALS: BP 169/66
[2021-06-30] MEDS ORDERED: FAMO-63 PO (13:56)
[2021-06-30] MEDS ORDERED: ONDA-84 PO (13:56)
[2021-06-30] MEDS ORDERED: CIPR500T2 PO (13:56)
== END 2021-06-30 14:05 | disposition home or self-care (01) ==
LOC: ER 11:35
DX: R11.2 Nausea with vomiting, unspecified (principal); H60.23 Malignant otitis externa, bilateral; R10.84 Generalized abdominal pain; R19.7 Diarrhea, unspecified; G43.909 Migraine, unspecified, not intractable, without status migrainosus; E10.40 Type 1 diabetes mellitus with diabetic neuropathy, unspecified; I10 Essential (primary) hypertension; F17.200 Nicotine dependence, unspecified, uncomplicated
CPT/HCPCS: 36415; 80053; 80307; 81001; 83690; 83735; 84703; 85025; 96361; 96374; 99283; J2405; J7030; 99285-25

== ENCOUNTER 2021-07-15 18:21 | Inpatient (IN) | payer SELFPAY ==
[~2021-07-15] VITALS: Ht 157.5 cm; Wt 73.9 kg
[~2021-07-15 18:21] MED LIST changes: +CIPR500T2 PO; +FAMO-63 PO; +ONDA-84 PO
[2021-07-15 19:05] LABS: BASO # 0.1 x10^3/uL (0.0-0.2); BASO % 1 % (0-3); EOS % 0 % (0-3); HEMATOCRIT 42.9 % (36.0-47.0); HEMOGLOBIN 14.1 g/dL (12.0-15.5); LYMPH # 2.8 x10^3/uL (1.0-4.8); LYMPH % 22 % (24-48); MEAN CORPUSCULAR HEMOGLOBIN 30 pg (25-35); MEAN CORPUSCULAR HGB CONC 33 g/dL (31-37); MEAN CORPUSCULAR VOLUME 92 fL (79-100); MONO # 0.5 x10^3/uL (0.0-1.1); MONO % 4 % (0-9); NEUT # 9.4 x10^3/uL (1.8-7.7); NEUT % 73 % (31-73); PLATELET COUNT 638 x10^3/uL (140-400); RED BLOOD COUNT 4.65 x10^6/uL (3.50-5.40); RED CELL DISTRIBUTION WIDTH 14.3 % (11.5-14.5)
[2021-07-15 19:14] LABS: CALCIUM 8.4 mg/dL (8.5-10.1); CREATININE 1.5 mg/dL (0.6-1.0); GFR 37.4; POTASSIUM 4.8 mmol/L (3.5-5.1)
[2021-07-15 19:16] LABS: BACTERIA,URINE 0 /HPF (0-FEW); RBC,URINE >40 /HPF (0-2); WBC,URINE OCC /HPF (0-4)
[2021-07-15 19:21] LABS: ALBUMIN/GLOBULIN RATIO 0.5 (1.0-1.7); MAGNESIUM 1.7 mg/dL (1.8-2.4); TOTAL BILIRUBIN 0.1 mg/dL (0.2-1.0); TOTAL PROTEIN 5.9 g/dL (6.4-8.2)
[2021-07-15 19:23] LABS: BARBITURATES NEG (NEG); BENZODIAZEPINES NEG (NEG); CANNABINOIDS NEG (NEG); COCAINE NEG (NEG); METHADONE NEG (NEG); OPIATES NEG (NEG); PHENCYCLIDINE NEG (NEG)
[2021-07-15 19:25] LABS: AMPHETAMINE/METHAMPHETAMINE NEG (NEG)
--- NOTE | 2021-07-15 19:29 | RAD ---
AP chest. HISTORY: Short of air AP view of the chest was compared with an old study from June 2019. Heart is n ormal in size. There is no pleural effusion. There is mild linear atelectasis in the left lung. There is a slight interstitial prominence compared to the prior study from slight interstitial infiltrates or mild vascular congestion. IMPRESSION: 1. Mild vascular congestion or mild interstitial infiltrates. Electronically signed by: Kalia Arriaza MD (07/15/2021 7:27 PM) [facility]
[2021-07-15] MEDS ORDERED: methylPREDNISolone SOD SUCC PF 125 MG/2 ML VIAL. IV ONE (20:45)
[2021-07-15] MEDS ORDERED: FUROSEMIDE 40 MG/4 ML VIAL. IVP ONE (20:45)
[2021-07-15] MEDS ORDERED: AZITHROMYCIN 500 MG in IV NORMAL SALINE 250ML 250 ML IV ONE (20:45)
[2021-07-15] MEDS ORDERED: IPRATRPIUM/ALBUTEROL 0.5/2.5MG 3 ML NEBU. NEB ONE (20:45)
[2021-07-15] MEDS ORDERED: INSULIN REGULAR 100 UNIT/ML 3ML VIAL. SQ ONE (20:45)
[2021-07-15 22:00] VITALS: BP 156/73
[2021-07-15] MEDS ORDERED: ACETAMINOPHEN 325 MG TABLET. PO PRN (22:00)
[2021-07-15] MEDS ORDERED: ONDANSETRON PF 4 MG/2 ML VIAL. IVP PRN (22:00)
--- NOTE | 2021-07-15 22:00 | NUR ---
Pt arrived to unit per cart, pt ambulated to bed with standby assist pt oriented to surroundings. tele monitor applied to pt vs obtained and stable. Assessment completed pt denied pain at this time poc explained to pt and pt over the phone. Will resume care and continue to monitor pt call placed to Dr. Hodge for further admission orders. Call light in reach.
--- NOTE | 2021-07-15 22:01 | PHYS DOC ---
Past Medical History Past Medical History: Diabetes-Type I, Hypertension, Migraines Additional Past Medical Histor: neuropathy; osteomyelitis, dental caries, substance abuse Past Surgical History: Other Additional Past Surgical Histo: left ankle I&D Smoking Status: Unknown if ever smoked Alcohol Use: Rarely Drug Use: None General Adult EDM: Chief Complaint: SHORTNESS OF BREATH HPI: HPI: Patient is a 46 year old female with a history of hypertension, uncontrolled diabetes type 2, chronic right otitis externa, who presents to the ED today complaining of shortness of breath that has been going on for 1-1/2 weeks. Patient is also complaining of cough and nasal congestion. Patient states she has been using her friend's inhaler with minimal relief. Denies any fever. Denies any chest pain. Reports bilateral lower extremity swelling for the last 1 week. Denies any previous history of CHF. Review of Systems: Review of Systems: Constitutional: Denies fever or chills. [] Eyes: Denies change in visual acuity. [] HENT: Denies nasal congestion or sore throat. [] Respiratory: Denies cough or shortness of breath. [] Cardiovascular: Denies chest pain or edema. [] GI: Denies abdominal pain, nausea, vomiting, bloody stools or diarrhea. [] : Denies dysuria. [] Musculoskeletal: Denies back pain or joint pain. [] Integument: Denies rash. [] Neurologic: Denies headache, focal weakness or sensory changes. [] Endocrine: Denies polyuria or polydipsia. [] Lymphatic: Denies swollen glands. [] Psychiatric: Denies depression or anxiety. [] Heart Score: C/O Chest Pain: N/A Risk Factors: Risk Factors: DM, Current or recent (<one month) smoker, HTN, HLP, family h istory of CAD, obesity. Risk Scores: Score 0 - 3: 2.5% MACE over next 6 weeks - Discharge Home Score 4 - 6: 20.3% MACE over next 6 weeks - Admit for Clinical Observation Score 7 - 10: 72.7% MACE over next 6 weeks - Early Invasive Strategies Current Medications: Current Medications Medications (Trade) Dose Ordered Sig/Kavin Start Time Stop Time Status Last Admin Dose Admin Albuterol/ Ipratropium (Duoneb) 3 ml 1X ONCE 07/15/21 20:45 07/15/21 20:46 DC 07/15/21 20:40 3 ML Azithromycin 500 mg/Sodium Chloride 250 ml @ 250 mls/hr 1X ONCE 07/15/21 20:45 07/15/21 21:44 DC 07/15/21 20:58 250 MLS/HR Furosemide (Lasix) 40 mg 1X ONCE 07/15/21 20:45 07/15/21 20:46 DC 07/15/21 20:57 40 MG Insulin Human Regular (HumuLIN R VIAL) 10 unit 1X ONCE 07/15/21 20:45 07/15/21 20:46 DC 07/15/21 20:59 10 UNIT Methylprednisolone Sodium Succinate (SOLU-Medrol 125MG VIAL) 125 mg 1X ONCE 07/15/21 20:45 07/15/21 20:46 DC 07/15/21 20:57 125 MG Allergies: Allergies: Allergies Coded Allergies Type Severity Reaction Last Updated Verified No Known Drug Allergies 06/30/21 No Physical Exam: PE: Constitutional: Well developed, well nourished, no acute distress, non-toxic appearance. [] HENT: Normocephalic, atraumatic, right exterior ear is swollen, fungal a ppearing, ear canal cannot be visualized due to swelling and chronic otitis externa, oropharynx moist, no oral exudates, nose normal. [] Eyes: PERRLA, EOMI, conjunctiva normal, no discharge. [] Neck: Normal range of motion, no tenderness, supple, no stridor. [] Cardiovascular: Tachycardic Lungs & Thorax: Wheezing noted to the upper lung bases Abdomen: Bowel sounds normal, soft, no tenderness, no masses, no pulsatile masses. [] Skin: Warm, dry, no erythema, no rash. [] Back: No tenderness, no CVA tenderness. [] Extremities: No tenderness, no cyanosis, no clubbing, ROM intact, no edema. [] Neurologic: Alert and oriented X 3, normal motor function, normal sensory function, no focal deficits noted. [] Psychologic: Affect normal, judgement normal, mood normal. [] Current Patient Data: Labs: Laboratory Tests Test 07/15/21 18:30 07/15/21 18:45 Urine Collection Type Unknown Urine Color (Auto) Red Urine Turbidity Bloody Urine pH (Auto) 6.0 (<5.0-8.0) Urine Specific [place] 1.021 (1.000-1.030) Urine Protein (Auto) 300 mg/dL (Negative) Urine Glucose (Auto)(UA) >=1000 mg/dL (Negative) Urine Ketones (Auto) Negative mg/dL (Negative) Urine Blood (Auto) Large (Negative) Urine Nitrite Negative (Negative) Urine Bilirubin (Auto) Negative (Negative) Urine Urobilinogen (Auto) Normal mg/dL (Normal) Urine Leukocyte Esterase (Auto) Negative (Negative) Urine RBC >40 /HPF (0-2) Urine WBC Occ /HPF (0-4) Urine Squamous Epithelial Cells Few /LPF Urine Bacteria 0 /HPF (0-FEW) Urine Opiates Screen Neg (NEG) Urine Methadone Screen Neg (NEG) Urine Barbiturates Neg (NEG) Urine Phencyclidine Screen Neg (NEG) Urine Amphetamine/Methamphetamine Neg (NEG) Urine Benzodiazepines Screen Neg (NEG) Urine Cocaine Screen Neg (NEG) Urine Cannabinoids Screen Neg (NEG) Urine Ethyl Alcohol Neg (NEG) White Blood Count 13.0 x10^3/uL (4.0-11.0) H Red Blood Count 4.65 x10^6/uL (3.50-5.40) Hemoglobin 14.1 g/dL (12.0-15.5) Hematocrit 42.9 % (36.0-47.0) Mean Corpuscular Volume 92 fL (79-100) Mean Corpuscular Hemoglobin 30 pg (25-35) Mean Corpuscular Hemoglobin Concent 33 g/dL (31-37) Red Cell Distribution Width 14.3 % (11.5-14.5) Platelet Count 638 x10^3/uL (140-400) H Neutrophils (%) (Auto) 73 % (31-73) Lymphocytes (%) (Auto) 22 % (24-48) L Monocytes (%) (Auto) 4 % (0-9) Eosinophils (%) (Auto) 0 % (0-3) Basophils (%) (Auto) 1 % (0-3) Neutrophils # (Auto) 9.4 x10^3/uL (1.8-7.7) H Lymphocytes # (Auto) 2.8 x10^3/uL (1.0-4.8) Monocytes # (Auto) 0.5 x10^3/uL (0.0-1.1) Eosinophils # (Auto) 0.0 x10^3/uL (0.0-0.7) Basophils # (Auto) 0.1 x10^3/uL (0.0-0.2) D-Dimer (Sammi) 0.50 ug/mlFEU (0.00-0.50) Sodium Level 131 mmol/L (136-145) L Potassium Level 4.8 mmol/L (3.5-5.1) Chloride Level 97 mmol/L (98-107) L Carbon Dioxide Level 29 mmol/L (21-32) Anion Gap 5 (6-14) L Blood Urea Nitrogen 30 mg/dL (7-20) H Creatinine 1.5 mg/dL (0.6-1.0) H Estimated GFR (Cockcroft-Gault) 37.4 BUN/Creatinine Ratio 20 (6-20) Glucose Level 475 mg/dL (70-99) H Lactic Acid Level 1.8 mmol/L (0.4-2.0) Calcium Level 8.4 mg/dL (8.5-10.1) L Magnesium Level 1.7 mg/dL (1.8-2.4) L Total Bilirubin 0.1 mg/dL (0.2-1.0) L Aspartate Amino Transferase (AST) 14 U/L (15-37) L Alanine Aminotransferase (ALT) 13 U/L (14-59) L Alkaline Phosphatase 86 U/L (46-116) Troponin I High Sensitivity 24 ng/L (4-50) JR-Bly-X-Type Natriuretic Peptide 1400 pg/mL (0-124) H Total Protein 5.9 g/dL (6.4-8.2) L Albumin 2.0 g/dL (3.4-5.0) L Albumin/Globulin Ratio 0.5 (1.0-1.7) L Laboratory Tests 07/15/21 18:45 Laboratory Tests 07/15/21 18:45 Vital Signs: Vital Signs Date Time Temp Pulse Resp B/P (MAP) Pulse Ox O2 Delivery O2 Flow Rate FiO2 07/15/21 20:41 95 Room Air 07/15/21 18:30 98.2 102 24 165/96 (119) 98.2 EKG: EKG: [] Radiology/Procedures: Radiology/Procedures: []PROCEDURE: PORTABLE CHEST 1V AP chest. HISTORY: Short of air AP view of the chest was compared with an old study from June 2019. Heart is normal in size. There is no pleural effusion. There is mild linear atelectasis in the left lung. There is a slight interstitial prominence compared to the prior study from slight interstitial infiltrates or mild vascular congestion. IMPRESSION: 1. Mild vascular congestion or mild interstitial infiltrates. Electronically signed by: Kalia Polanco MD (07/15/2021 7:27 PM) [facility] DICTATED and SIGNED BY: KALIA POLANCO MD DATE: 07/15/211925 Course & Med Decision Making: Course & Med Decision Making Pertinent Labs and Imaging studies reviewed. (See chart for details) This a 46-year-old female patient presenting to the ED today complaining of shortness of breath that began 1-1/2 weeks ago. Vitals on arrival to the ED temperature 98.2, heart rate 102, respiration 24, bl ood pressure 165/96, O2 sats 95% on room air. CBC with WBC of 13.0, normal hemoglobin and hematocrit, platelets 630, CMP with glucose of 475, anion gap is normal, creatinine 1.5, BUN 30, patient has history of renal insufficiency, BNP 1400, this is a new for this patient. UA negative for infection. Chest x-ray noted for mild vascular congestion or mild interstitial infiltrates. Patient was started on antibiotics, given at breathing treatment in the ED, Solu-Medrol, furosemide and insulin. Spoke to Dr. Hernández who accepted patient for admission Routine consult placed for investment consultant Renu Disclaimer: Renu Disclaimer: This electronic medical record was generated, in whole or in part, using a voice recognition dictation system. Departure Departure Impression: Primary Impression: Hyperglycemia Additional Impressions: Acute on chronic renal failure Qualified Codes: N17.9 - Acute kidney failure, unspecified; N18.9 - Chronic kidney disease, unspecified New onset of congestive heart failure Disposition: ADMITTED INPATIENT Condition: STABLE Referrals: NO PCP (PCP) XAVI ESPINAL APRN Jul 15, 2021 22:01
[2021-07-15] MEDS ORDERED: NPH,100V SQ (23:23)
[2021-07-15] MEDS ORDERED: INSU100V5 IJ (23:23)
[2021-07-15] MEDS ORDERED: PRED20TA PO (23:23)
[2021-07-16] MEDS ORDERED: INSU100V5 IJ (00:10)
[2021-07-16] MEDS ORDERED: traMADol 50 MG TABLET PO PRN (00:15)
[2021-07-16] MEDS ORDERED: LORazepam 0.5 MG TABLET PO PRN ×2 (00:15→09:00)
[2021-07-16] MEDS: NICOTINE 14MG PATCH. TD SCH ×2 (00:17→08:15)
[2021-07-16] MEDS: LOSARTAN POTASSIUM 25 MG TABLET. PO SCH ×2 (00:18→08:15)
[2021-07-16 01:55] LABS: BASO % 0 % (0-3); EOS % 0 % (0-3); HEMATOCRIT 41.9 % (36.0-47.0); HEMOGLOBIN 13.7 g/dL (12.0-15.5); LYMPH % 7 % (24-48); MEAN CORPUSCULAR HEMOGLOBIN 30 pg (25-35); MEAN CORPUSCULAR HGB CONC 33 g/dL (31-37); MEAN CORPUSCULAR VOLUME 92 fL (79-100); MONO # 0.1 x10^3/uL (0.0-1.1); MONO % 0 % (0-9); NEUT # 13.7 x10^3/uL (1.8-7.7); NEUT % 93 % (31-73); PLATELET COUNT 587 x10^3/uL (140-400); RED BLOOD COUNT 4.58 x10^6/uL (3.50-5.40); RED CELL DISTRIBUTION WIDTH 14.1 % (11.5-14.5); WHITE BLOOD COUNT 14.8 x10^3/uL (4.0-11.0)
[2021-07-16 02:13] LABS: ALBUMIN 2.1 g/dL (3.4-5.0); ALBUMIN/GLOBULIN RATIO 0.6 (1.0-1.7); CALCIUM 8.8 mg/dL (8.5-10.1); CREATININE 1.3 mg/dL (0.6-1.0); GFR 44.1; POTASSIUM 4.7 mmol/L (3.5-5.1); TOTAL BILIRUBIN 0.2 mg/dL (0.2-1.0); TOTAL PROTEIN 5.5 g/dL (6.4-8.2)
[2021-07-16 02:25] LABS: % BANDS 1 % (0-9); % LYMPHS 9 % (24-48); % SEGS 90 % (35-66); PLT ESTIMATE INCREASED (ADEQUATE)
[2021-07-16 03:00] VITALS: BP 171/66
[2021-07-16 07:00] VITALS: BP 149/62
[2021-07-16] MEDS ORDERED: INSULIN LISPRO 300 UNITS/3 ML VIAL. SQ SCH ×2 (07:30→12:00)
--- NOTE | 2021-07-16 07:31 | EKG ---
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
[2021-07-16] MEDS: IPRATRPIUM/ALBUTEROL 0.5/2.5MG 3 ML NEBU. NEB SCH ×2 (07:43→11:28)
--- NOTE | 2021-07-16 08:51 | PDOC1 ---
History and Physical Date of Service: DOS: DATE: 07/16/21 TIME: 08:45 Chief Complaint: Chief Complain: Shortness of breath History of Present Illness: HPI: 46-year-old female with past medical history of hypertension, diabetes mellitus type 2 insulin-dependent, chronic right otitis infection who comes into the ED complaining of shortness of breath that has been going on for 1-1/2 weeks. She also complains of cough, nasal congestion and bilateral lower extremity edema for the last week. She states that she does take medications for blood pressure that starts with L and O. Denies any fevers, chest pain, abdominal pain, diarrhea, dysuria, hematuria. No history of CHF. 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 Past Medical/Surgical History: PMH/PSH: Past Medical History: Diabetes-Type I, Hypertension, Migraines, neuropathy; osteomyelitis, dental caries, substance abuse Past Surgical History: left ankle I&D Allergies: Allergies: Coded Allergies: No Known Drug Allergies (Unverified , 06/30/21) Family History: Family History: Reviewed with no relative findings in the chart Social History: Social History: Smoking Status: Unknown if ever smoked Alcohol Use: Rarely Drug Use: None Current Medications: Current Medications Current Medications Furosemide (Lasix) 40 mg 1X ONCE IVP Last administered on 07/15/21at 20:57; Start 07/15/21 at 20:45; Stop 07/15/21 at 20:46; Status DC Methylprednisolone Sodium Succinate (SOLU-Medrol 125MG VIAL) 125 mg 1X ONCE IV Last administered on 07/15/21at 20:57; Start 07/15/21 at 20:45; Stop 07/15/21 at 20:46; Status DC Azithromycin 500 mg/Sodium Chloride 250 ml @ 250 mls/hr 1X ONCE IV Last administered on 07/15/21at 20:58; Start 07/15/21 at 20:45; Stop 07/15/21 at 21:44; Status DC Albuterol/ Ipratropium (Duoneb) 3 ml 1X ONCE NEB Last administered on 07/15/21at 20:40; Start 07/15/21 at 20:45; Stop 07/15/21 at 20:46; Status DC Insulin Human Regular (HumuLIN R VIAL) 10 unit 1X ONCE SQ Last administered on 07/15/21at 20:59; Start 07/15/21 at 20:45; Stop 07/15/21 at 20:46; Status DC Ondansetron HCl (Zofran) 4 mg PRN Q8HRS PRN IVP NAUSEA/VOMITING; Start 07/15/21 at 22:00; Stop 07/16/21 at 21:59 Acetaminophen (Tylenol) 650 mg PRN Q4HRS PRN PO FEVER > 100.3'F; Start 07/15/21 at 22:00; Stop 07/16/21 at 21:59 Albuterol/ Ipratropium (Duoneb) 3 ml RTQID NEB Last administered on 07/16/21at 07:43; Start 07/16/21 at 08:00; Stop 07/17/21 at 07:59 Losartan Potassium (Cozaar) 25 mg DAILY PO Last administered on 07/16/21at 08:15; Start 07/16/21 at 00:15 Lorazepam (Ativan) 0.5 mg PRN Q6HRS PRN PO ANXIETY / AGITATION; Start 07/16/21 at 00:15 Nicotine (Nicoderm Cq 14mg) 1 patch DAILY TD Last administered on 07/16/21at 08:15; Start 07/16/21 at 00:15 Insulin Human Regular (HumuLIN R VIAL) 11 unit DAILYWDIN SQ ; Start 07/16/21 at 18:00; Status UNV Prednisone (Prednisone) 20 mg QAMHS PO Last administered on 07/16/21at 08:17; Start 07/16/21 at 09:00 Tramadol HCl (Ultram) 50 mg PRN Q6HRS PRN PO PAIN; Start 07/16/21 at 00:15 Insulin Glargine (Lantus Syringe) 20 unit BID SQ ; Start 07/16/21 at 09:00 Insulin Human Lispro (HumaLOG) 11 units BIDAC SQ Last administered on 07/16/21at 08:17; Start 07/16/21 at 07:30 Active Scripts Active NICODERM CQ 21mg (Nicotine) 1 Each Patch.td24 1 Patch TP DAILY Tramadol Hcl 50 Mg Tablet 50 Mg PO PRN Q6HRS PRN 6 Days Reported Humulin R (Insulin Regular, Human) 100 Unit/1 Ml Vial 11 Unit IJ DAILYWBKFT Humulin R (Insulin Regular, Human) 100 Unit/1 Ml Vial 11 Unit IJ DAILYWDIN Humulin N (Nph, Human Insulin Isophane) 100 Unit/1 Ml Vial 20 Unit SQ QAMHS Prednisone 20 Mg Tablet 1 Tab PO QAMHS ROS: Review of Systems Review of System REVIEW OF SYSTEMS: GENERAL: Denies weakness SKIN: No bruising, hair changes or rashes. EYES: No blurred, double or loss of vision. NOSE AND THROAT: No history of nosebleeds, hoarseness or sore throat. HEART: No history of palpitations, chest pain or shortness of breath on exertion. LUNGS: Positive for shortness of breath GASTROINTESTINAL: Denies changes in appetite, nausea, vomiting, diarrhea or constipation. GENITOURINARY: No history of frequency, urgency, hesitancy or nocturia. NEUROLOGIC: Denies history of numbness, tingling, or tremor. PSYCHIATRIC: No history of panic, anxiety or depression. ENDOCRINE: No history of heat or cold intolerance, polyuria or polydipsia. EXTREMITIES: Denies joint pain, pain on walking or stiffness. Physical Exam: Vital Signs: Vital Signs Date Time Temp Pulse Resp B/P (MAP) Pulse Ox O2 Delivery O2 Flow Rate FiO2 07/16/21 08:15 84 171/66 07/16/21 07:45 95 Room Air 07/16/21 03:00 97.7 16 97.7 Physcial Exam: General: Well developed, well nourished, no acute distress, well appearing HEENT: Pupils equally round and reactive to light, EOMI, no discharge, normal conjunctiva Neck: Supple, no nuchal rigidity, no JVD, trachea midline, no tenderness Cardiac: RRR, no murmurs, no gallops, no rubs Chest/Lungs: CTAB, no wheeze, no rhonchi, no crackles Abdomen: soft, non-distended, no guarding, no peritoneal signs, non-tender Back: No tenderness Extremities: +1 bilateral pedal edema, pulses intact, non-tender,capillary refill <3 sec bilateral upper and lower extremities, Neuro: Alert and oriented x 4, no focal deficits, normal speech Labs: Labs: Laboratory Tests Test 07/15/21 18:30 07/15/21 18:45 07/15/21 22:19 07/16/21 01:45 Urine Collection Type Unknown Urine Color (Auto) Red Urine Turbidity Bloody Urine pH (Auto) 6.0 (<5.0-8.0) Urine Specific [place] 1.021 (1.000-1.030) Urine Protein (Auto) 300 mg/dL (Negative) Urine Glucose (Auto)(UA) >=1000 mg/dL (Negative) Urine Ketones (Auto) Negative mg/dL (Negative) Urine Blood (Auto) Large (Negative) Urine Nitrite Negative (Negative) Urine Bilirubin (Auto) Negative (Negative) Urine Urobilinogen (Auto) Normal mg/dL (Normal) Urine Leukocyte Esterase (Auto) Negative (Negative) Urine RBC >40 /HPF (0-2) Urine WBC Occ /HPF (0-4) Urine Squamous Epithelial Cells Few /LPF Urine Bacteria 0 /HPF (0-FEW) Urine Opiates Screen Neg (NEG) Urine Methadone Screen Neg (NEG) Urine Barbiturates Neg (NEG) Urine Phencyclidine Screen Neg (NEG) Urine Amphetamine/Methamphetamine Neg (NEG) Urine Benzodiazepines Screen Neg (NEG) Urine Cocaine Screen Neg (NEG) Urine Cannabinoids Screen Neg (NEG) Urine Ethyl Alcohol Neg (NEG) White Blood Count 13.0 x10^3/uL (4.0-11.0) 14.8 x10^3/uL (4.0-11.0) Red Blood Count 4.65 x10^6/uL (3.50-5.40) 4.58 x10^6/uL (3.50-5.40) Hemoglobin 14.1 g/dL (12.0-15.5) 13.7 g/dL (12.0-15.5) Hematocrit 42.9 % (36.0-47.0) 41.9 % (36.0-47.0) Mean Corpuscular Volume 92 fL (79-100) 92 fL (79-100) Mean Corpuscular Hemoglobin 30 pg (25-35) 30 pg (25-35) Mean Corpuscular Hemoglobin Concent 33 g/dL (31-37) 33 g/dL (31-37) Red Cell Distribution Width 14.3 % (11.5-14.5) 14.1 % (11.5-14.5) Platelet Count 638 x10^3/uL (140-400) 587 x10^3/uL (140-400) Neutrophils (%) (Auto) 73 % (31-73) 93 % (31-73) Lymphocytes (%) (Auto) 22 % (24-48) 7 % (24-48) Monocytes (%) (Auto) 4 % (0-9) 0 % (0-9) Eosinophils (%) (Auto) 0 % (0-3) 0 % (0-3) Basophils (%) (Auto) 1 % (0-3) 0 % (0-3) Neutrophils # (Auto) 9.4 x10^3/uL (1.8-7.7) 13.7 x10^3/uL (1.8-7.7) Lymphocytes # (Auto) 2.8 x10^3/uL (1.0-4.8) 1.0 x10^3/uL (1.0-4.8) Monocytes # (Auto) 0.5 x10^3/uL (0.0-1.1) 0.1 x10^3/uL (0.0-1.1) Eosinophils # (Auto) 0.0 x10^3/uL (0.0-0.7) 0.0 x10^3/uL (0.0-0.7) Basophils # (Auto) 0.1 x10^3/uL (0.0-0.2) 0.0 x10^3/uL (0.0-0.2) D-Dimer (Sammi) 0.50 ug/mlFEU (0.00-0.50) Sodium Level 131 mmol/L (136-145) 135 mmol/L (136-145) Potassium Level 4.8 mmol/L (3.5-5.1) 4.7 mmol/L (3.5-5.1) Chloride Level 97 mmol/L (98-107) 99 mmol/L (98-107) Carbon Dioxide Level 29 mmol/L (21-32) 31 mmol/L (21-32) Anion Gap 5 (6-14) 5 (6-14) Blood Urea Nitrogen 30 mg/dL (7-20) 32 mg/dL (7-20) Creatinine 1.5 mg/dL (0.6-1.0) 1.3 mg/dL (0.6-1.0) Estimated GFR (Cockcroft-Gault) 37.4 44.1 BUN/Creatinine Ratio 20 (6-20) 25 (6-20) Glucose Level 475 mg/dL (70-99) 359 mg/dL (70-99) Lactic Acid Level 1.8 mmol/L (0.4-2.0) Calcium Level 8.4 mg/dL (8.5-10.1) 8.8 mg/dL (8.5-10.1) Magnesium Level 1.7 mg/dL (1.8-2.4) Total Bilirubin 0.1 mg/dL (0.2-1.0) 0.2 mg/dL (0.2-1.0) Aspartate Amino Transf (AST/SGOT) 14 U/L (15-37) 9 U/L (15-37) Alanine Aminotransferase (ALT/SGPT) 13 U/L (14-59) 11 U/L (14-59) Alkaline Phosphatase 86 U/L (46-116) 86 U/L (46-116) Troponin I High Sensitivity 24 ng/L (4-50) 31 ng/L (4-50) NO-Ihl-F-Type Natriuretic Peptide 1400 pg/mL (0-124) Total Protein 5.9 g/dL (6.4-8.2) 5.5 g/dL (6.4-8.2) Albumin 2.0 g/dL (3.4-5.0) 2.1 g/dL (3.4-5.0) Albumin/Globulin Ratio 0.5 (1.0-1.7) 0.6 (1.0-1.7) Glucose (Fingerstick) 253 mg/dL (70-99) Segmented Neutrophils % 90 % (35-66) Band Neutrophils % 1 % (0-9) Lymphocytes % 9 % (24-48) Platelet Estimate Increased (ADEQUATE) Test 07/16/21 08:06 Glucose (Fingerstick) 542 mg/dL (70-99) Laboratory Tests Test 07/15/21 18:30 07/15/21 18:45 07/15/21 22:19 07/16/21 01:45 Urine Collection Type Unknown Urine Color (Auto) Red Urine Turbidity Bloody Urine pH (Auto) 6.0 (<5.0-8.0) Urine Specific [place] 1.021 (1.000-1.030) Urine Protein (Auto) 300 mg/dL (Negative) Urine Glucose (Auto)(UA) >=1000 mg/dL (Negative) Urine Ketones (Auto) Negative mg/dL (Negative) Urine Blood (Auto) Large (Negative) Urine Nitrite Negative (Negative) Urine Bilirubin (Auto) Negative (Negative) Urine Urobilinogen (Auto) Normal mg/dL (Normal) Urine Leukocyte Esterase (Auto) Negative (Negative) Urine RBC >40 /HPF (0-2) Urine WBC Occ /HPF (0-4) Urine Squamous Epithelial Cells Few /LPF Urine Bacteria 0 /HPF (0-FEW) Urine Opiates Screen Neg (NEG) Urine Methadone Screen Neg (NEG) Urine Barbiturates Neg (NEG) Urine Phencyclidine Screen Neg (NEG) Urine Amphetamine/Methamphetamine Neg (NEG) Urine Benzodiazepines Screen Neg (NEG) Urine Cocaine Screen Neg (NEG) Urine Cannabinoids Screen Neg (NEG) Urine Ethyl Alcohol Neg (NEG) White Blood Count 13.0 x10^3/uL (4.0-11.0) 14.8 x10^3/uL (4.0-11.0) Red Blood Count 4.65 x10^6/uL (3.50-5.40) 4.58 x10^6/uL (3.50-5.40) Hemoglobin 14.1 g/dL (12.0-15.5) 13.7 g/dL (12.0-15.5) Hematocrit 42.9 % (36.0-47.0) 41.9 % (36.0-47.0) Mean Corpuscular Volume 92 fL (79-100) 92 fL (79-100) Mean Corpuscular Hemoglobin 30 pg (25-35) 30 pg (25-35) Mean Corpuscular Hemoglobin Concent 33 g/dL (31-37) 33 g/dL (31-37) Red Cell Distribution Width 14.3 % (11.5-14.5) 14.1 % (11.5-14.5) Platelet Count 638 x10^3/uL (140-400) 587 x10^3/uL (140-400) Neutrophils (%) (Auto) 73 % (31-73) 93 % (31-73) Lymphocytes (%) (Auto) 22 % (24-48) 7 % (24-48) Monocytes (%) (Auto) 4 % (0-9) 0 % (0-9) Eosinophils (%) (Auto) 0 % (0-3) 0 % (0-3) Basophils (%) (Auto) 1 % (0-3) 0 % (0-3) Neutrophils # (Auto) 9.4 x10^3/uL (1.8-7.7) 13.7 x10^3/uL (1.8-7.7) Lymphocytes # (Auto) 2.8 x10^3/uL (1.0-4.8) 1.0 x10^3/uL (1.0-4.8) Monocytes # (Auto) 0.5 x10^3/uL (0.0-1.1) 0.1 x10^3/uL (0.0-1.1) Eosinophils # (Auto) 0.0 x10^3/uL (0.0-0.7) 0.0 x10^3/uL (0.0-0.7) Basophils # (Auto) 0.1 x10^3/uL (0.0-0.2) 0.0 x10^3/uL (0.0-0.2) D-Dimer (Sammi) 0.50 ug/mlFEU (0.00-0.50) Sodium Level 131 mmol/L (136-145) 135 mmol/L (136-145) Potassium Level 4.8 mmol/L (3.5-5.1) 4.7 mmol/L (3.5-5.1) Chloride Level 97 mmol/L (98-107) 99 mmol/L (98-107) Carbon Dioxide Level 29 mmol/L (21-32) 31 mmol/L (21-32) Anion Gap 5 (6-14) 5 (6-14) Blood Urea Nitrogen 30 mg/dL (7-20) 32 mg/dL (7-20) Creatinine 1.5 mg/dL (0.6-1.0) 1.3 mg/dL (0.6-1.0) Estimated GFR (Cockcroft-Gault) 37.4 44.1 BUN/Creatinine Ratio 20 (6-20) 25 (6-20) Glucose Level 475 mg/dL (70-99) 359 mg/dL (70-99) Lactic Acid Level 1.8 mmol/L (0.4-2.0) Calcium Level 8.4 mg/dL (8.5-10.1) 8.8 mg/dL (8.5-10.1) Magnesium Level 1.7 mg/dL (1.8-2.4) Total Bilirubin 0.1 mg/dL (0.2-1.0) 0.2 mg/dL (0.2-1.0) Aspartate Amino Transf (AST/SGOT) 14 U/L (15-37) 9 U/L (15-37) Alanine Aminotransferase (ALT/SGPT) 13 U/L (14-59) 11 U/L (14-59) Alkaline Phosphatase 86 U/L (46-116) 86 U/L (46-116) Troponin I High Sensitivity 24 ng/L (4-50) 31 ng/L (4-50) NU-Bxj-B-Type Natriuretic Peptide 1400 pg/mL (0-124) Total Protein 5.9 g/dL (6.4-8.2) 5.5 g/dL (6.4-8.2) Albumin 2.0 g/dL (3.4-5.0) 2.1 g/dL (3.4-5.0) Albumin/Globulin Ratio 0.5 (1.0-1.7) 0.6 (1.0-1.7) Glucose (Fingerstick) 253 mg/dL (70-99) Segmented Neutrophils % 90 % (35-66) Band Neutrophils % 1 % (0-9) Lymphocytes % 9 % (24-48) Platelet Estimate Increased (ADEQUATE) Test 07/16/21 08:06 Glucose (Fingerstick) 542 mg/dL (70-99) Images: Images PROCEDURE: PORTABLE CHEST 1V AP chest. HISTORY: Short of air AP view of the chest was compared with an old study from June 2019. Heart is normal in size. There is no pleural effusion. There is mild linear atelectasis in the left lung. There is a slight interstitial prominence compared to the prior study from slight interstitial infiltrates or mild vascular congestion. IMPRESSION: 1. Mild vascular congestion or mild interstitial infiltrates. Assessment/Plan Assessment/Plan Dyspnea secondary to possible CHF exacerbation Hypertensive urgency Hyperglycemia Acute on chronic kidney injury, due to vasomotor nephropathy History of diabetes mellitus type 1, uncontrolled History of hypertension History of polysubstance abuse Admit to hospitalist service for further management Pending cardiology evaluation Add amlodipine to losartan Trend BP R-ISS and Accu-Cheks Pending hemoglobin A1c Pending lipid panel and TSH Lovenox for DVT prophylaxis Protonix GI prophylaxis ADA diet CODE STATUS full Discussed with RN and SW Disposition inpatient management as above DPOA: Mother Justifications for Admission Other Justification MARINA MITCHELL MD Jul 16, 2021 08:51
[2021-07-16] MEDS ORDERED: ACETAMINOPHEN 325 MG TABLET. PO PRN (09:00)
[2021-07-16] MEDS ORDERED: ENOXAPARIN 40 MG/0.4 ML SYRINGE. SQ SCH (09:00)
[2021-07-16] MEDS ORDERED: DOCUSATE SODIUM 100 MG CAPSULE. PO PRN (09:00)
[2021-07-16] MEDS ORDERED: SENNOSIDES 8.6 MG TABLET PO PRN (09:00)
[2021-07-16] MEDS ORDERED: PROCHLORPERAZINE 10 MG/2 ML VIAL. IV PRN (09:00)
[2021-07-16] MEDS ORDERED: diphenhydrAMINE HCL 25 MG CAPSULE PO PRN ×2 (09:00)
[2021-07-16] MEDS ORDERED: ZOLPIDEM 5 MG TABLET. PO PRN (09:00)
[2021-07-16] MEDS ORDERED: INSULIN GLARGINE SYRINGE. SQ SCH (09:00)
[2021-07-16] MEDS ORDERED: DEXTROSE 50% 25 GM / 50ML DISP.SYRIN. IV PRN (09:00)
[2021-07-16] MEDS ORDERED: predniSONE 20 MG TABLET PO SCH (09:00)
[2021-07-16] MEDS ORDERED: diphenhydrAMINE 50 MG/ML VIAL IVP PRN (09:00)
[2021-07-16] MEDS ORDERED: ONDANSETRON PF 4 MG/2 ML VIAL. IVP PRN (09:00)
[2021-07-16 11:00] VITALS: BP 150/70
[2021-07-16 12:15] VITALS: BP 150/70
--- NOTE | 2021-07-16 14:52 | NUR ---
PT REPORTS DESIRE TO LEAVE. SHE IS UNWILLING TO REMAIN LONG ENOUGH TO BE SEEN BY CARDIOLOGY DESPITE RECOMMENDATION FROM DR MITCHELL. SHE IS STRONGLY ENCOURAGED TO SEEK GUIDANCE FROM HER PCP ON TREATING HER BP, NEW CHF, AND HER ONGOING STRUGGLES WITH DM MANAGEMENT. PIV ET TELE DISCONTINUED. SHE MAINTAINS HER INSISTENCE THAT SHE LEAVE AT THIS TIME. ESCORTED OUT WITH SECURITY TO HER VEHICLE IN THE ER PARKING LOT.
[2021-07-16 15:03] LABS: CHOLESTEROL/HDL RATIO 3.9
[2021-07-16] MEDS ORDERED: INSULIN REGULAR 100 UNIT/ML 3ML VIAL. SQ SCH (18:00)
[2021-07-17] MEDS ORDERED: LOSARTAN POTASSIUM 50 MG TABLET. PO SCH (09:00)
[2021-07-17 11:11] LABS: HEMOGLOBIN A1C 11.8 % (4.8-5.6)
--- NOTE | 2021-07-20 17:10 | PDOC3 ---
[facility]-Discharge Summary Date of Admission: Date of Admission: Jul 16, 2021 Date of Discharge: Date of Discharge: Jul 16, 2021 Discharge Diagnosis: Discharge Diagnosis: Dyspnea secondary to possible CHF exacerbation Hypertensive urgency Hyperglycemia Acute on chronic kidney injury, due to vasomotor nephropathy History of diabetes mellitus type 1, uncontrolled History of hypertension History of polysubstance abuse Hospital Course: Hospital Course: 46-year-old female with past medical history of hypertension, diabetes mellitus type 2 insulin-dependent, chronic right otitis infection who comes into the ED complaining of shortness of breath that has been going on for 1-1/2 weeks. She also complains of cough, nasal congestion and bilateral lower extremity edema for the last week. She states that she does take medications for blood pressure that starts with L and O. Denies any fevers, chest pain, abdominal pain, diarrhea, dysuria, hematuria. No history of CHF. Has not seen a junior manufacturing engineer in the past. Patient left AMA before any inpatient work-up could be completed Disposition: Disposition/Orders: Other (AMA) Activity: Activity: Resume previous activity Diet: Diet: Cardiac, Consistent Carbohydrate Medications: Home Meds Active Scripts Nicotine (NICODERM CQ 21mg) 1 Each Patch.td24, 1 PATCH TP DAILY, #28 PATCH 1 Refill Prov:XAVI ESPINAL ENVIRONMENTAL ATTORNEY 09/03/20 Tramadol Hcl (TRAMADOL HCL) 50 Mg Tablet, 50 MG PO PRN Q6HRS PRN for PAIN for 6 Days, #15 TAB 0 Refills Prov:KEVIN PENNY MD 03/14/20 Reported Medications Insulin Regular, Human (HUMULIN R) 100 Unit/1 Ml Vial, 11 UNIT IJ DAILYWBKFT for , EACH 07/16/21 Insulin Regular, Human (HUMULIN R) 100 Unit/1 Ml Vial, 11 UNIT IJ DAILYWDIN for , EACH 07/15/21 Nph, Human Insulin Isophane (HUMULIN N) 100 Unit/1 Ml Vial, 20 UNIT SQ QAMHS for , EACH 07/15/21 Prednisone (PREDNISONE) 20 Mg Tablet, 1 TAB PO QAMHS for , #5 TAB 07/15/21 Scheduled Insulin Regular, Human (Humulin R), 11 UNIT IJ DAILYWDIN, (Reported) Insulin Regular, Human (Humulin R), 11 UNIT IJ DAILYWBKFT, (Reported) Nicotine (NICODERM CQ 21mg), 1 PATCH TP DAILY Nph, Human Insulin Isophane (Humulin N), 20 UNIT SQ QAMHS, (Reported) Prednisone (Prednisone), 1 TAB PO QAMHS, (Reported) Scheduled PRN Tramadol Hcl (Tramadol Hcl), 50 MG PO PRN Q6HRS PRN for PAIN Total Time: Total Time: Total time spent was 31 minutes in preparing scripts, discharge planning with SWI and RN and preparing this discharge summary Patient seen and examined on day of discharge. No acute abnormal findings. Justicifation of Admission Dx: Justifications for Admission: Justification of Admission Dx: N/A MARINA MITCHELL MD Jul 20, 2021 17:10
== END 2021-07-16 14:45 | disposition left against medical advice (07) | DRG 291 ==
LOC: EDBD → ER 18:21 → 6 SOUTH 20:54
PROVIDERS: ADMIT Family Medicine; ATTEND Family Medicine
DX: I13.0 Hypertensive heart and chronic kidney disease with heart failure and stage 1 through stage 4 chronic kidney disease, or unspecified chronic kidney disease (principal); N17.0 Acute kidney failure with tubular necrosis; J98.11 Atelectasis; E10.65 Type 1 diabetes mellitus with hyperglycemia; E10.22 Type 1 diabetes mellitus with diabetic chronic kidney disease; E10.40 Type 1 diabetes mellitus with diabetic neuropathy, unspecified; I16.0 Hypertensive urgency; I50.9 Heart failure, unspecified; N18.9 Chronic kidney disease, unspecified; Z79.4 Long term (current) use of insulin; G43.909 Migraine, unspecified, not intractable, without status migrainosus; Z53.29 Procedure and treatment not carried out because of patient's decision for other reasons
CPT/HCPCS: 36415; 71045; 80053; 80061; 80307; 81001; 82962; 83036; 83605; 83735; 83880; 84443; 84484; 85007; 85025; 85379; 87040; 93005; 94640; 94760; 96365; 96372; 96375; J0456; J1815; J1940; J2930; J7050; J7512; 99285-25; G0378; J7030

== ENCOUNTER 2021-08-20 23:59 | Emergency (ER) | payer SELFPAY ==
[~2021-08-20] VITALS: Ht 157.5 cm; Wt 78.2 kg
[2021-08-21 00:29] LABS: BASO # 0.1 x10^3/uL (0.0-0.2); BASO % 1 % (0-3); EOS # 0.2 x10^3/uL (0.0-0.7); EOS % 2 % (0-3); HEMATOCRIT 37.7 % (36.0-47.0); HEMOGLOBIN 12.7 g/dL (12.0-15.5); LYMPH # 2.2 x10^3/uL (1.0-4.8); LYMPH % 17 % (24-48); MEAN CORPUSCULAR HEMOGLOBIN 30 pg (25-35); MEAN CORPUSCULAR HGB CONC 34 g/dL (31-37); MEAN CORPUSCULAR VOLUME 89 fL (79-100); MONO # 1.1 x10^3/uL (0.0-1.1); MONO % 8 % (0-9); NEUT # 9.5 x10^3/uL (1.8-7.7); NEUT % 73 % (31-73); PLATELET COUNT 572 x10^3/uL (140-400); RED BLOOD COUNT 4.24 x10^6/uL (3.50-5.40); RED CELL DISTRIBUTION WIDTH 14.3 % (11.5-14.5); WHITE BLOOD COUNT 13.1 x10^3/uL (4.0-11.0)
[2021-08-21] MEDS ORDERED: IV DEXTROSE 10% 1,000 ML IV ONE (00:30)
[2021-08-21 00:47] LABS: ALBUMIN 1.9 g/dL (3.4-5.0); ALBUMIN/GLOBULIN RATIO 0.4 (1.0-1.7); CALCIUM 8.2 mg/dL (8.5-10.1); CREATININE 1.3 mg/dL (0.6-1.0); GFR 44.1; MAGNESIUM 2.3 mg/dL (1.8-2.4); POTASSIUM 4.3 mmol/L (3.5-5.1); TOTAL BILIRUBIN 0.3 mg/dL (0.2-1.0); TOTAL PROTEIN 6.4 g/dL (6.4-8.2)
[2021-08-21 01:26] LABS: BACTERIA,URINE 0 /HPF (0-FEW); WBC,URINE 0 /HPF (0-4)
--- NOTE | 2021-08-21 01:53 | PHYS DOC ---
Past Medical History Past Medical History: Diabetes-Type I, Hypertension, Migraines Additional Past Medical Histor: neuropathy; osteomyelitis, dental caries, substance abuse Past Surgical History: Other Additional Past Surgical Histo: left ankle I&D Smoking Status: Current Every Day Smoker Alcohol Use: Rarely Drug Use: None General Adult EDM: Chief Complaint: HYPOGLYCEMIA HPI: HPI: 46-year-old female with past medical history of hypertension, diabetes mellitus type 2 insulin-dependent, chronic right otitis infection who comes into the ED complaining low blood sugar. Patient called EMS because patient was acting confused, they checked her blood sugar and it was 40. Patient was given dextrose and her blood sugar went up to 165 therefore patient did not want to come to the hospital. Her then called EMS later because patient becomes confused again and therefore they came out and checked her blood sugar it was 35 therefore they brought her here for evaluation. Patient was started on a D10 drip in the ER here. Patient denies any headache, no chest pain, no abdominal pain. Patient says she is a smoker, she only had a dry cough. Patient refused to have chest x-ray done. Patient denies any abdominal pain Review of Systems: Review of Systems: Constitutional: Denies fever or chills. [] Eyes: Denies change in visual acuity. [] HENT: Denies nasal congestion or sore throat. [] Respiratory: Denies cough or shortness of breath. [] Cardiovascular: Denies chest pain or edema. [] GI: Denies abdominal pain, nausea, vomiting, bloody stools or diarrhea. [] : Denies dysuria. [] Musculoskeletal: Denies back pain or joint pain. [] Integument: Denies rash. [] Neurologic: Denies headache, focal weakness or sensory changes. Positive for general weakness Endocrine: Denies polyuria or polydipsia. [] Lymphatic: Denies swollen glands. [] Psychiatric: Denies depression or anxiety. [] Heart Score: C/O Chest Pain: N/A Risk Factors: Risk Factors: DM, Current or recent (<one month) smoker, HTN, HLP, family history of CAD, obesity. Risk Scores: Score 0 - 3: 2.5% MACE over next 6 weeks - Discharge Home Score 4 - 6: 20.3% MACE over next 6 weeks - Admit for Clinical Observation Score 7 - 10: 72.7% MACE over next 6 weeks - Early Invasive Strategies Current Medications: Current Medications Medications (Trade) Dose Ordered Sig/Kavin Start Time Stop Time Status Last Admin Dose Admin Dextrose 1,000 ml @ 100 mls/hr 1X ONCE 08/21/21 00:30 08/21/21 10:29 08/21/21 00:35 100 MLS/HR Allergies: Allergies: Allergies Coded Allergies Type Severity Reaction Last Updated Verified No Known Drug Allergies 06/30/21 No Physical Exam: PE: Constitutional: Well developed, well nourished, no acute distress, non-toxic appearance. [] HENT: Normocephalic, atraumatic, bilateral external ears with chronic appearing otitis externa ,oropharynx moist, no oral exudates, nose normal. [] Eyes: PERRLA, EOMI, conjunctiva normal, no discharge. [] Neck: Normal range of motion, no tenderness, supple, no stridor. [] Cardiovascular:Heart rate regular rhythm, no murmur [] Lungs & Thorax: Bilateral breath sounds clear to auscultation [] Abdomen: Bowel sounds normal, soft, no tenderness, no masses, no pulsatile masses. [] Skin: Warm, dry, no erythema, no rash. [] Back: No tenderness, no CVA tenderness. [] Extremities: No tenderness, no cyanosis, no clubbing, ROM intact, no edema. [] Neurologic: Alert and oriented X 3, normal motor function, normal sensory function, no focal deficits noted. [] Psychologic: Affect normal, judgement normal, mood normal. [] Current Patient Data: Labs: Laboratory Tests Test 08/21/21 00:08 08/21/21 00:20 08/21/21 01:05 08/21/21 01:11 Glucose (Fingerstick) 35 mg/dL (70-99) *L White Blood Count 13.1 x10^3/uL (4.0-11.0) H Red Blood Count 4.24 x10^6/uL (3.50-5.40) Hemoglobin 12.7 g/dL (12.0-15.5) Hematocrit 37.7 % (36.0-47.0) Mean Corpuscular Volume 89 fL (79-100) Mean Corpuscular Hemoglobin 30 pg (25-35) Mean Corpuscular Hemoglobin Concent 34 g/dL (31-37) Red Cell Distribution Width 14.3 % (11.5-14.5) Platelet Count 572 x10^3/uL (140-400) H Neutrophils (%) (Auto) 73 % (31-73) Lymphocytes (%) (Auto) 17 % (24-48) L Monocytes (%) (Auto) 8 % (0-9) Eosinophils (%) (Auto) 2 % (0-3) Basophils (%) (Auto) 1 % (0-3) Neutrophils # (Auto) 9.5 x10^3/uL (1.8-7.7) H Lymphocytes # (Auto) 2.2 x10^3/uL (1.0-4.8) Monocytes # (Auto) 1.1 x10^3/uL (0.0-1.1) Eosinophils # (Auto) 0.2 x10^3/uL (0.0-0.7) Basophils # (Auto) 0.1 x10^3/uL (0.0-0.2) Sodium Level 138 mmol/L (136-145) Potassium Level 4.3 mmol/L (3.5-5.1) Chloride Level 102 mmol/L (98-107) Carbon Dioxide Level 27 mmol/L (21-32) Anion Gap 9 (6-14) Blood Urea Nitrogen 23 mg/dL (7-20) H Creatinine 1.3 mg/dL (0.6-1.0) H Estimated GFR (Cockcroft-Gault) 44.1 BUN/Creatinine Ratio 18 (6-20) Glucose Level 36 mg/dL (70-99) *L Calcium Level 8.2 mg/dL (8.5-10.1) L Magnesium Level 2.3 mg/dL (1.8-2.4) Total Bilirubin 0.3 mg/dL (0.2-1.0) Aspartate Amino Transferase (AST) 31 U/L (15-37) Alanine Aminotransferase (ALT) 25 U/L (14-59) Alkaline Phosphatase 136 U/L (46-116) H Troponin I High Sensitivity 28 ng/L (4-50) JO-Kad-L-Type Natriuretic Peptide 538 pg/mL (0-124) H Total Protein 6.4 g/dL (6.4-8.2) Albumin 1.9 g/dL (3.4-5.0) L Albumin/Globulin Ratio 0.4 (1.0-1.7) L Lipase 80 U/L (73-393) Urine Collection Type Void Urine Color (Auto) Colorless Urine Turbidity Clear Urine pH (Auto) 7.0 (<5.0-8.0) Urine Specific [place] 1.007 (1.000-1.030) Urine Protein (Auto) 300 mg/dL (Negative) Urine Glucose (Auto)(UA) Negative mg/dL (Negative) Urine Ketones (Auto) Negative mg/dL (Negative) Urine Blood (Auto) Trace (Negative) Urine Nitrite Negative (Negative) Urine Bilirubin (Auto) Negative (Negative) Urine Urobilinogen (Auto) Normal mg/dL (Normal) Urine Leukocyte Esterase (Auto) Negative (Negative) Urine RBC 1-2 /HPF (0-2) Urine WBC 0 /HPF (0-4) Urine Squamous Epithelial Cells Many /LPF Urine Bacteria 0 /HPF (0-FEW) POC Urine HCG, Qualitative Hcg negative (Negative) Test 08/21/21 01:22 Glucose (Fingerstick) 100 mg/dL (70-99) H Laboratory Tests 08/21/21 00:20 Laboratory Tests 08/21/21 00:20 Vital Signs: Vital Signs Date Time Temp Pulse Resp B/P (MAP) Pulse Ox O2 Delivery O2 Flow Rate FiO2 08/21/21 00:00 97.4 74 12 157/67 (97) 95 Room Air 97.4 EKG: EKG: [] Radiology/Procedures: Radiology/Procedures: [] Course & Med Decision Making: Course & Med Decision Making Was broughtPertinent Labs and Imaging studies reviewed. (See chart for details) [Patient is a 46-year-old female who here by EMS from home due to low blood sugar. Patient stated that she did not eat much tonight and took her regular insulin at prescribed. Patient was given food and D10 drip in the ER. Her blood sugar has been stable as 150. Patient did not want to stay any longer. Patient would like to be discharged home, patient is stated that she know how to raise her blood sugar at home by eating. Her came to take the patient home. Dragon Disclaimer: Dragon Disclaimer: This electronic medical record was generated, in whole or in part, using a voice recognition dictation system. Departure Departure Impression: Primary Impression: Hypoglycemia Disposition: HOME / SELF CARE / HOMELESS Condition: IMPROVED Referrals: NO PCP (PCP) Patient Instructions: Hypoglycemia (Low Blood Sugar) Additional Instructions: Thank you for visiting our Emergency Department. We appreciate you trusting us with your care. If any additional problems come up don't hesitate to return to visit us. Please follow up with your primary care provider so they can plan additional care if needed and know about the problem that you had. If symptoms worsen come back to the Emergency Department. Any concerning symptoms that start such as chest pain, shortness of air, weakness or numbness on one side of the body, running high fevers or any other concerning symptoms return to the ER. SOUMYA HUGGINS DO August 21, 2021 01:52
--- NOTE | 2021-08-21 02:02 | EKG ---
[facility] [address] [place] [address] Test Date: 2021-08-21 Test Time: 00:34:06 Pat Name: RENEE MARQUEZ Department: Room: Gender: F [employer]: : 1975 Requested By: SOUMYA HUGGINS Order Number: [id number] Reading MD: Gilbert Santillan Measurements Intervals [place] Rate: 81 P: 44 RI: 132 QRS: 57 QRSD: 88 T: 71 QT: 370 QTc: 430 Interpretive Statements SINUS RHYTHM NON SPECIFIC ST-T WAVE CHANGES Electronically Signed On 08-23-2021 11:16:04 CDT by Gilbert Santillan
[2021-08-21 02:13] VITALS: BP 138/65
== END 2021-08-21 02:18 | disposition home or self-care (01) ==
LOC: ER 23:59
DX: E11.649 Type 2 diabetes mellitus with hypoglycemia without coma (principal); I10 Essential (primary) hypertension; G43.909 Migraine, unspecified, not intractable, without status migrainosus; F17.200 Nicotine dependence, unspecified, uncomplicated
CPT/HCPCS: 36415; 80053; 81001; 81025; 82962; 83690; 83735; 83880; 84484; 85025; 93005; 96360; 96361; 99285; J3490